=== PATIENT | female | born 1970 | race Caucasian/White ===

== ENCOUNTER → 2016-03-29 | Outpatient (CLI) | payer BC ==
[~2016-03-29] MED LIST: BCPILLS TOP; BIRTH CONTROL PATCH TD; CHOL2000 PO; CIPR-255 PO; CYAN100020 PO; IBUP-1451 PO; ONDA4TAB10 SL; OXYC1TAB3 PO; PHEN-775 PO; RIZA10TA18 PO; SERT50TA PO; TAMS0.4C38 PO
[2016-03-29 12:27] LABS: BASO % 0.4 %; BASO ABS # 0.04 K/uL (0-0.2); COMPLETE YES; EOS % 1.4 %; HEMATOCRIT 34.2 % (37-47); IG% 0.2 %; LYMPH % 23.1 %; LYMPH ABS # 2.44 K/uL (1.2-3.4); MEAN CELL VOLUME 85.3 fL (80-100); MEAN CORPUSCULAR HEMOGLOBIN 27.9 pg (25-34); MEAN CORPUSCULAR HGB CONC 32.7 g/dl (32-36); MEAN PLATELET VOLUME 9.9 fL (7.4-10.4); MONO % 5.4 %; NEUT % 69.5 %; PLATELET COUNT 400 K/uL (130-400); RED BLOOD COUNT 4.01 M/uL (4.2-5.4); WHITE BLOOD COUNT 10.54 K/uL (4.8-10.8)
== END | disposition home or self-care (01) ==
LOC: C.LABBFT 07:47
PROVIDERS: ATTEND Internal Medicine
DX: D64.9 Anemia, unspecified (principal); R79.9 Abnormal finding of blood chemistry, unspecified

== ENCOUNTER → 2016-04-04 | Outpatient (CLI) | payer BC ==
[2016-04-04 12:41] LABS: ESTIMATED AVERAGE GLUCOSE 111 mg/dl; HA1C FLAG Normal (Normal)
[2016-04-04 12:45] LABS: ALT/SGPT 20 U/L (12-78); BLOOD UREA NITROGEN 14 mg/dl (7-18); BUN/CREATININE RATIO 16.9 (10-20); CALCIUM 9.2 mg/dl (8.5-10.1); CARBON DIOXIDE 25 mmol/L (21-32); CHLORIDE 102 mmol/L (98-107); CHOLESTEROL 179 mg/dl (0-200); CREATININE 0.81 mg/dl (0.60-1.20); GLUCOSE 90 mg/dl (70-99); SODIUM 136 mmol/L (136-145); TRIGLYCERIDES 246 mg/dl (0-150); VERY LOW DENSITY LIPOPROT CALC 49 mg/dl
[2016-04-04 12:48] LABS: ALB/GLOB RATIO 0.8 (0.9-2); ALKALINE PHOSPHATASE 79 U/L (45-117); AST/SGOT 18 U/L (15-37); CHOLESTEROL/HDL RATIO 2.8; HDL CHOLESTEROL 65 mg/dl; LDL CHOLESTEROL CALCULATED 65 mg/dl
== END | disposition home or self-care (01) ==
LOC: C.LABBFT 07:49
PROVIDERS: ATTEND Internal Medicine
DX: R79.9 Abnormal finding of blood chemistry, unspecified (principal)

== ENCOUNTER 2016-06-30 17:29 | Emergency (ER) | payer BC ==
[~2016-06-30] VITALS: Ht 162.6 cm; Wt 77.0 kg
[~2016-06-30 17:29] MED LIST changes: -BIRTH CONTROL PATCH TD; -CHOL2000 PO; -CIPR-255 PO; -IBUP-1451 PO; -ONDA4TAB10 SL; -OXYC1TAB3 PO; -PHEN-775 PO; -TAMS0.4C38 PO
[2016-06-30 17:31] VITALS: TEMP 36.8; Ht 162.6 cm; Wt 77.0 kg
[2016-06-30] MEDS ORDERED: IBUPROFEN 800 MG TAB PO STA (17:51)
[2016-06-30] MEDS ORDERED: CHOL2000 PO (17:53)
--- NOTE | 2016-06-30 18:20 | EMERGENCY ROOM VISIT NOTE ---
ED Visit Note First contact with patient: 17:38 CHIEF COMPLAINT: Right Ankle pain, Right knee pain, s/p fall from standing HISTORY OF PRESENT ILLNESS: This 45-year-old female patient presents to the emergency department female [facility], approximately 1.5 hours after sustaining an injury to the right ankle and knee after falling from standing while attempting to get into the passenger seat of her vehicle. Patient states she was standing on an incline, opened the door, fell onto her bent right leg, which she landed on, then the right leg twisted sideways and she fell over onto her right side. The patient complains of pain along the outside of the ankle and outside of the right knee. The patient rates the pain as throbbing and 6/ 10. The patient is not able to bear weight on the leg. Constant pain, worse with movement, attempted weight bearing, and the dependent position. The patient is able to move their toes. No numbness or weakness of the foot, no laceration. The patient has not had a previous fracture or injury to this ankle or knee. The patient has taken nothing for the pain. The patient denies any other injury. REVIEW OF SYSTEMS: A 6 system review of systems was completed with positives and pertinent negatives listed in the HPI. ALLERGIES: None MEDICATIONS: Sertraline, vitamin D, vitamin B-12, control patch, rizatriptan, unknown muscle relaxer PMH: Panic attacks, depression, vitamin D deficiency, vitamin B12 deficiency, migraines, neck pain SOCIAL HISTORY: The patient lives locally with her . Denies tobacco or drug use. Reports occasional alcohol use. PHYSICAL EXAM: Vital Signs: Reviewed Nurse's notes, vital signs stable. GENERAL : 45-year-old female presents to [facility], no acute distress, but appears in pain, well-developed, well-nourished. MENTAL STATUS: Alert, oriented to person place and time, and cooperative. MUSCULOSKELETAL: The right ankle is swollen and tender over the lateral malleolus, but the skin is intact and there is no ligamentous instability. The right knee is not tender to palpation, however lateral knee discomfort noted when patient density. There is no fifth metatarsal tenderness. There is no tenderness over the rest of the foot. There is no calf or tibia/fibular tenderness. There is no visual deformity. The foot and toes are warm and well-perfused. Dorsalis pedis pulse 2+. Sensation to pain and light touch is intact. Capillary refill less than 2 seconds. See HPI for pertinent positives and negatives. A total of six systems were reviewed and were otherwise negative. EMERGENCY DEPARTMENT COURSE: I examined the patient. X-rays of the right knee and right ankle were reviewed by myself and read by radiology and reveal: Right Ankle Xray: FINDINGS: Alignment of the right ankle is anatomic. There is no acute fracture. Talar dome is intact. IMPRESSION: No acute fracture or dislocation of the right ankle.. Right Knee Xray: FINDINGS: Alignment of the right knee is anatomic. No fracture or joint effusion. IMPRESSION: No acute fracture or joint effusion of the right knee. Ankle gel splint was applied to the ankle under my direction and the position was satisfactory. Neurovascular status was rechecked and intact. The patient was instructed on the use of crutches. The patient was discharged home in good condition. DIAGNOSIS: Right ankle sprain, right knee and leg contusion DIFFERENTIAL DIAGNOSIS: Fracture, contusion, strain DISCHARGE INSTRUCTIONS: Ice and elevation for 2-3 days, use crutches to avoid weight bearing XXXX, wear the splint XXXX. Do not get the splint wet. Ibuprofen, 600 mg and Tylenol 1000 mg every 6 hours if needed for pain. See your doctor or an orthopedic surgeon if there is no improvement in 4 - 5 days. Current/Historical Medications Scheduled Control Pills ( Control Pills), 1 DOSE TOP WK Cholecalciferol (Vitamin D3), 2,000 INTER.UNIT PO DAILY Cyanocobalamin (Vitamin B12), 1,000 MCG PO DAILY Sertraline (Zoloft), 50 MG PO DAILY Scheduled PRN Ibuprofen Tab (Motrin), 800 MG PO Q8H PRN for Pain Rizatriptan Benzoate (Maxalt), 10 MG PO DAILY PRN Allergies Coded Allergies: No Known Allergies (Unverified , 06/30/16) Vital Signs Date Time Temp Pulse Resp B/P Pulse Ox O2 Delivery O2 Flow Rate FiO2 06/30/16 19:40 82 18 128/80 96 Room Air 06/30/16 17:31 36.8 87 20 138/85 97 Room Air Medications Administered Medications (Trade) Dose Ordered Sig/Phan Route Start Time Stop Time Status Last Admin Dose Admin Ibuprofen (Motrin Tab) 800 mg NOW STAT PO 06/30/16 17:51 06/30/16 17:56 DC 06/30/16 18:06 800 MG Departure Information Impression Primary Impression: Right ankle sprain Additional Impression: Contusion of right knee and lower leg Dispostion Home / Self-Care Condition GOOD Prescriptions Ibuprofen Tab (MOTRIN) 800 Mg Tab 800 MG PO Q8H Y for Pain, #60 TAB For Initial Treatment Prov: Aimee Cruz PA-C 06/30/16 Referrals No Doctor, Assigned (PCP) Patient Instructions My [facility] Additional Instructions You have been treated in the Emergency Department for an Ankle sprain and knee pain. You have been prescribed ibuprofen to be used for pain and inflammation control. For pain control, you can use the following [id number] medicines (if >12 yo): - Regular strength (325mg/tab) Tylenol (acetaminophen) 2 tabs every 4-6 hours as needed. Do not exceed 12 tablets in a 24 hour period. Avoid taking more than 4 grams (4000 mg) of Tylenol per day. This includes any other sources of acetaminophen you may take on a regular basis. Do not take any other NSAIDs such as ibuprofen, Motrin, Advil, Aleve, or naproxen while taking prescribed medication. Ice can be applied to the area of pain for the first 3 days to help decrease pain and inflammation. Follow-up with your primary care physician next week. Keep the ankle brace/splint in place until cleared by your PCP. Use the crutches you have been provided to keep ALL weight off of the ankle until weight bearing is tolerable. Return to the Emergency Department if your current symptoms worsen despite treatment course outlined above, or if you develop any of the following symptoms : intractable pain despite aforementioned treatment course or new onset of numbness or tingling of the foot. Problem Qualifiers
--- NOTE | 2016-06-30 18:43 | DIAGNOSTIC IMAGING REPORT ---
RIGHT KNEE 3 VIEWS CLINICAL HISTORY: Right knee pain status post fall. COMPARISON: None FINDINGS: Alignment of the right knee is anatomic. No fracture or joint effusion. IMPRESSION: No acute fracture or joint effusion of the right knee. Electronically signed by: Bowen Conway M.D. 06/30/2016 6:42 PM Dictated Date/Time: 06/30/2016 6:41 PM
--- NOTE | 2016-06-30 18:44 | DIAGNOSTIC IMAGING REPORT ---
RIGHT ANKLE MIN 3 VIEWS ROUTINE CLINICAL HISTORY: Right ankle pain status post fall. COMPARISON: None FINDINGS: Alignment of the right ankle is anatomic. There is no acute fracture. Talar dome is intact. IMPRESSION: No acute fracture or dislocation of the right ankle. Electronically signed by: Bowen Conway M.D. 06/30/2016 6:42 PM Dictated Date/Time: 06/30/2016 6:42 PM
[2016-06-30] MEDS ORDERED: IBUP-1451 PO (19:11)
[2016-06-30 19:40] VITALS: BP 128/80; PULSE 82; O2SAT 96
== END 2016-06-30 19:49 | disposition home or self-care (01) ==
LOC: C.EDB 17:30 → C.EDD 19:49
DX: S93.401A Sprain of unspecified ligament of right ankle, initial encounter (principal); S80.01XA Contusion of right knee, initial encounter; S80.11XA Contusion of right lower leg, initial encounter; W17.89XA Other fall from one level to another, initial encounter; F41.0 Panic disorder [episodic paroxysmal anxiety]; F33.41 Major depressive disorder, recurrent, in partial remission; E55.9 Vitamin D deficiency, unspecified; E53.8 Deficiency of other specified B group vitamins

== ENCOUNTER 2016-10-21 23:48 | Emergency (ER) | payer BC ==
[~2016-10-21] VITALS: Ht 162.6 cm; Wt 80.0 kg
[~2016-10-21 23:48] MED LIST changes: +CHOL2000 PO; +IBUP-1451 PO
[2016-10-21 23:56] VITALS: TEMP 36.5; Ht 162.6 cm; Wt 80.0 kg
[2016-10-22] MEDS ORDERED: MoRPHine SULFATE 4 MG/ML 1 ML CARP\\VIAL IV STA (00:07)
[2016-10-22] MEDS ORDERED: ONDANSETRON INJ 2 MG/ML 2 ML VIAL IV STA (00:07)
[2016-10-22] MEDS ORDERED: SODIUM CHLORIDE 0.9% 1000ML 1,000 ML IV STA ×2 (00:07)
[2016-10-22] MEDS ORDERED: KETOROLAC TROMETHAMINE 30 MG/ML VIAL IV STA (00:07)
[2016-10-22 00:33] LABS: BASO % 0.3 %; BASO ABS # 0.04 K/uL (0-0.2); COMPLETE YES; EOS % 1.2 %; HEMATOCRIT 37.4 % (37-47); IG% 0.3 %; LYMPH % 31.2 %; LYMPH ABS # 4.51 K/uL (1.2-3.4); MEAN CORPUSCULAR HEMOGLOBIN 27.6 pg (25-34); MEAN CORPUSCULAR HGB CONC 32.1 g/dl (32-36); MEAN PLATELET VOLUME 9.7 fL (7.4-10.4); MONO % 5.3 %; NEUT % 61.7 %; PLATELET COUNT 449 K/uL (130-400); RED BLOOD COUNT 4.35 M/uL (4.2-5.4); WHITE BLOOD COUNT 14.47 K/uL (4.8-10.8)
[2016-10-22] MEDS ORDERED: BIRTH CONTROL PATCH TD (00:35)
[2016-10-22 00:45] LABS: URINE APPEARANCE CLEAR (CLEAR); URINE BILIRUBIN NEG (NEG); URINE COLOR YELLOW; URINE EPITHELIAL CELL AUTO >30 /lpf (0-5); URINE NITRITE NEG (NEG); URINE PH 6.5 (4.5-7.5); URINE SPECIFIC GRAVITY 1.024 (1.000-1.030); UROBILINOGEN NEG (NEG); ZZUR CULT IF INDIC CLEAN CATCH NO
[2016-10-22 00:50] LABS: MANUAL MICROSCOPIC REQUIRED? NO; REVIEW REQ? YES
[2016-10-22 00:59] LABS: URINE MUCUS PRESENT (NONE PRSENT)
[2016-10-22 01:01] LABS: ALT/SGPT 18 U/L (12-78); AST/SGOT 19 U/L (15-37); BLOOD UREA NITROGEN 17 mg/dl (7-18); BUN/CREATININE RATIO 16.6 (10-20); CALCIUM 9.2 mg/dl (8.5-10.1); CARBON DIOXIDE 25 mmol/L (21-32); CHLORIDE 104 mmol/L (98-107); GLUCOSE 125 mg/dl (70-99); POTASSIUM 3.2 mmol/L (3.5-5.1); SODIUM 137 mmol/L (136-145)
[2016-10-22 01:03] LABS: ALKALINE PHOSPHATASE 93 U/L (45-117)
[2016-10-22] MEDS ORDERED: POTASSIUM CHLORIDE 10 MEQ TABCR PO STA (01:20)
--- NOTE | 2016-10-22 03:01 | EMERGENCY ROOM VISIT NOTE ---
History First contact with patient: 00:01 Chief Complaint: FLANK PAIN Stated Complaint: SEVERE PAIN IN LEFT SIDE History of Present Illness The patient is a 46 year old female who presents to the Emergency Room with complaints of severe sudden onset of left flank pain that raised her groin for the past hour described as severe, 9 out of 10. Nothing makes it better or worse. Patient denies chest pain, dyspnea, fever, chills, urinary symptoms, history kidney stones. Patient states she was nauseous and vomited from the pain. Colonoscopy in the past was negative. No diverticuli. Review of Systems See HPI for pertinent positives & negatives. A total of 10 systems reviewed and were otherwise negative. Past Medical/Surgical History Migraines, panic attacks Social History Smoking Status: Never Smoker Smokeless Tobacco Use: No Drug Use: none Marital Status: Housing Status: lives with family Current/Historical Medications Scheduled Cholecalciferol (Vitamin D3), 2,000 INTER.UNIT PO DAILY Cyanocobalamin (Vitamin B12), 1,000 MCG PO DAILY Sertraline (Zoloft), 50 MG PO DAILY [ Control Patch], 1 PATCH TD WK Scheduled PRN Rizatriptan Benzoate (Maxalt), 10 MG PO DAILY PRN for Migraine Physical Exam Vital Signs Date Time Temp Pulse Resp B/P (MAP) Pulse Ox O2 Delivery O2 Flow Rate FiO2 10/22/16 01:47 92 16 126/87 96 Room Air 10/21/16 23:56 36.5 114 18 98 Room Air Physical Exam VITALS: Vitals are noted on the nurse's note and reviewed by myself. Vital signs stable. GENERAL: Pleasant female in obvious pain, nondiaphoretic, well-developed well- nourished. SKIN: The skin was without rashes, erythema, edema, or bruising. There is no tenting of the skin. Capillary reflex less than 2 seconds. HEAD: Normocephalic atraumatic. EARS: External auditory canals clear, tympanic membranes pearly coreas without erythema or effusion bilaterally. EYES: Pupils equal round and reactive to light and accommodation. Conjunctivae without injection, sclerae without icterus. Extraocular movements intact. NOSE: Patent, turbinates without inflammation or discharge. MOUTH: Mucous membranes moist. Pharynx without erythema or exudate. Uvula midline. Airway patent. Tongue does not deviate. NECK: Supple without nuchal rigidity. No lymphadenopathy. No thyromegaly. Cervical spine is nontender. No JVD. HEART: Regular rate and rhythm without murmurs gallops or rubs. LUNGS: Clear to auscultation bilaterally without wheezes, rales or rhonchi. No dullness to percussion. No retractions or accessory muscle use. ABDOMEN: Positive bowel sounds x 4. Normal tympanic percussion. Soft, nontender, without masses or organomegaly. Franks sign negative. No guarding or rebound tenderness. Left CVA tenderness MUSCULOSKELETAL: No muscle atrophy, erythema, or edema noted. NEURO: Patient was alert and oriented to person place and time. Normal sensation to light and sharp touch. No focal neurological deficits. Medical Decision & Procedures Laboratory Results 10/22/16 00:10 Red Blood Count 4.35, Mean Corpuscular Volume 86.0, Mean Corpuscular Hemoglobin 27.6, Mean Corpuscular Hemoglobin Concent 32.1, Mean Platelet Volume 9.7, Neutrophils (%) (Auto) 61.7, Lymphocytes (%) (Auto) 31.2, Monocytes (%) (Auto) 5.3, Eosinophils (%) (Auto) 1.2, Basophils (%) (Auto) 0.3, Neutrophils # (Auto) 8.93, Lymphocytes # (Auto) 4.51, Monocytes # (Auto) 0.76, Eosinophils # (Auto) 0.18, Basophils # (Auto) 0.04 10/22/16 00:10 Test 10/22/16 00:00 10/22/16 00:10 Urine Color YELLOW Urine Appearance CLEAR (CLEAR) Urine pH 6.5 (4.5-7.5) Urine Specific [place] 1.024 (1.000-1.030) Urine Protein 1+ (NEG) Urine Glucose (UA) NEG (NEG) Urine Ketones TRACE (NEG) Urine Occult Blood 3+ (NEG) Urine Nitrite NEG (NEG) Urine Bilirubin NEG (NEG) Urine Urobilinogen NEG (NEG) Urine Leukocyte Esterase TRACE (NEG) Urine WBC (Auto) 5-10 /hpf (0-5) Urine RBC (Auto) >30 /hpf (0-4) Urine Hyaline Casts (Auto) 1-5 /lpf (0-5) Urine Epithelial Cells (Auto) >30 /lpf (0-5) Urine Bacteria (Auto) 1+ (NEG) Urine Renal Epithelial Cells /lpf (0-5) Urine Mucus PRESENT (NONE PRSENT) White Blood Count 14.47 K/uL (4.8-10.8) Red Blood Count 4.35 M/uL (4.2-5.4) Hemoglobin 12.0 g/dL (12.0-16.0) Hematocrit 37.4 % (37-47) Mean Corpuscular Volume 86.0 fL (80-100) Mean Corpuscular Hemoglobin 27.6 pg (25-34) Mean Corpuscular Hemoglobin Concent 32.1 g/dl (32-36) Platelet Count 449 K/uL (130-400) Mean Platelet Volume 9.7 fL (7.4-10.4) Neutrophils (%) (Auto) 61.7 % Lymphocytes (%) (Auto) 31.2 % Monocytes (%) (Auto) 5.3 % Eosinophils (%) (Auto) 1.2 % Basophils (%) (Auto) 0.3 % Neutrophils # (Auto) 8.93 K/uL (1.4-6.5) Lymphocytes # (Auto) 4.51 K/uL (1.2-3.4) Monocytes # (Auto) 0.76 K/uL (0.11-0.59) Eosinophils # (Auto) 0.18 K/uL (0-0.5) Basophils # (Auto) 0.04 K/uL (0-0.2) RDW Standard Deviation 44.2 fL (36.4-46.3) RDW Coefficient of Variation 14.0 % (11.5-14.5) Immature Granulocyte % (Auto) 0.3 % Immature Granulocyte # (Auto) 0.05 K/uL (0.00-0.02) Anion Gap 8.0 mmol/L (3-11) Est Creatinine Clear Calc Drug Dose 71.2 ml/min Estimated GFR () 77.7 Estimated GFR (Non- 67.0 BUN/Creatinine Ratio 16.6 (10-20) Calcium Level 9.2 mg/dl (8.5-10.1) Total Bilirubin 0.2 mg/dl (0.2-1) Direct Bilirubin < 0.1 mg/dl (0-0.2) Aspartate Amino Transf (AST/SGOT) 19 U/L (15-37) Alanine Aminotransferase (ALT/SGPT) 18 U/L (12-78) Alkaline Phosphatase 93 U/L (45-117) Total Protein 8.1 gm/dl (6.4-8.2) Albumin 3.5 gm/dl (3.4-5.0) Lipase 159 U/L (73-393) Medications Administered Medications (Trade) Dose Ordered Sig/Hpan Route Start Time Stop Time Status Last Admin Dose Admin Ketorolac Tromethamine (Toradol Inj) 30 mg NOW STAT IV 10/22/16 00:07 10/22/16 00:11 DC 10/22/16 00:20 30 MG Morphine Sulfate (MoRPHine SULFATE INJ) 4 mg NOW STAT IV 10/22/16 00:07 10/22/16 00:11 DC 10/22/16 00:21 4 MG Ondansetron HCl (Zofran Inj) 4 mg NOW STAT IV 10/22/16 00:07 10/22/16 00:11 DC 10/22/16 00:20 4 MG Sodium Chloride 1,000 ml @ 999 mls/hr Q1H1M STAT IV 10/22/16 00:07 10/22/16 01:07 DC 10/22/16 00:21 999 MLS/HR Sodium Chloride 1,000 ml @ 125 mls/hr Q8H STAT IV 10/22/16 00:07 10/22/16 08:06 10/22/16 01:45 125 MLS/HR Potassium Chloride (Klor-Con M10) 30 meq NOW STAT PO 10/22/16 01:20 10/22/16 01:21 DC 10/22/16 01:45 30 MEQ ED Course Prior records/ancillary studies reviewed. Triage Nursing notes reviewed. Additional history obtained from the family. The patient's history was concerning for left flank pain. Differential diagnosis: Etiologies such as renal colic, appendicitis, diverticulitis, mesenteric ischemia, aortic pathology, infections, inflammatory bowel disease, PUD, biliary pathology, UTI, as well as others were entertained. Physical examination findings: As above. ER treatment provided: toradol, morphine, zofran On reassessment the patient felt better. Diagnostic interpretation by me: The labs revealed leukocytosis, hypokalemia and this is her placed orally. Urinalysis revealed hematuria. There was no sign of UTI. Imaging studies: CT of the abdomen and pelvis 6 mm obstructing stone on the left and read by radiology and reviewed It appears that the patient has isolated renal colic from a left sided stone. Patient's pain was resolved and requested to leave. She was informed that this stone may not pass. She is informed she must follow-up urology in a few days or here in the ER sooner for severe pain, fevers, vomiting, worsening signs or symptoms or as needed. Patient was well-appearing. She is informed of the above findings. By the evaluation outlined above emergent etiologies such as appendicitis, diverticulitis, mesenteric ischemia, aortic pathology, infections, inflammatory bowel disease, PUD, biliary pathology, UTI, as well as others were deemed relatively unlikely. The pt informed about the findings as listed above. All questions were answered and pleased with the treatment. Return instructions were outlined and the patient was discharged in stable condition. Outpatient prescription management: Oxy IR 5mg 1-2 po Q4 hrs prn Zofran, Flomax Referral: The pt was referred to [facility] for follow up care regarding their stone. And The patient was referred back to their primary care physician for follow-up in 2 to 3 days for a recheck of the current condition. case reviewed with my Attending. Medical Decision As above Medication Reconcilliation Current Medication List: was personally reviewed by me Blood Pressure Screening Patient's blood pressure: Normal blood pressure Impression Primary Impression: Renal colic on left side Departure Information Dispostion Home / Self-Care Condition GOOD Referrals Nathan Monte M.D. (PCP) Patient Instructions My [facility] Additional Instructions DO NOT drive, drink alcohol, operate machinery, or perform dangerous activities today. You were given medications in the ER that can affect your ability to safely function or operate a vehicle. There is an incidental finding on a CT scan showing a possible fibroid on your uterus. Follow-up with family care for this. Oxycodone Immediate Release (OxyIR) 5mg: Take 1-2 pills every four hours for pain. Avoid alcohol, operating machinery or dangerous equipment, working on ladders or roofs, DRIVING, or situations where being under the influence may be dangerous. It is recommended to use an [id number]-[id number]-[id number] stool softener such as Colace, 100mg twice daily while taking this medication to avoid constipation. Zofran 4 mg: Take one every six hours as needed for nausea. Avoid alcohol, operating machinery or dangerous equipment, working on ladders or roofs, DRIVING , or situations where being under the influence may be dangerous. Ibuprofen(Motrin, Advil) may be used for fever or pain. Use 600mg every six hours as needed. Take with food. Avoid using more than 2400mg in a 24 hour period. Do not use 2400mg per day for more than three consecutive days without physician direction. Prolonged inappropriate use can lead to stomach upset or ulcers. This medication can be taken if you need to drive, work, or perform activities which may be dangerous when taking narcotic pain medication. (AND/OR) Acetaminophen(Tylenol) may be used for fever or pain. Use 1000mg every six hours as needed. Avoid using more than 3000mg in a 24 hour period. This medication can be taken if you need to drive, work, or perform activities which may be dangerous when taking narcotic pain medication. Flomax 0.4 m tablet daily until stone passes. Take this at night. This can lower your blood pressure. Strain your urine and collect all the stones or debris for the urologists. Rest and avoid strenuous activity until your stone passes and symptoms resolve. Drink plenty of fluids. Continue current medications. Return to the ER for worsening abdominal or back pain, vomiting, fevers, passing out, or as needed. Follow up with urology in 2-3 days, call for an appointment.
[2016-10-22] MEDS ORDERED: OXYC1TAB3 PO (03:04)
[2016-10-22] MEDS ORDERED: ONDA4TAB10 SL (03:04)
[2016-10-22] MEDS ORDERED: TAMS0.4C38 PO (03:04)
[2016-10-22] MEDS ORDERED: TAMSULOSIN HCL 0.4 MG CAP PO ONE (03:15)
[2016-10-22] MEDS ORDERED: OXYCODONE IR HOME PACK PO ONE (03:15)
[2016-10-22] MEDS ORDERED: ONDANSETRON HOME PACK 4MG OD TAB PO ONE (03:15)
[2016-10-22 03:22] VITALS: BP 122/81; PULSE 91; O2SAT 97
--- NOTE | 2016-10-22 06:33 | DIAGNOSTIC IMAGING REPORT ---
ABD/PELVIS WITHOUT FOR STONE CLINICAL HISTORY: 46 years-old Female presenting with severe left flank pain. TECHNIQUE: Multidetector CT of the abdomen and pelvis was performed without the use of intravenous contrast. IV contrast: None. A dose lowering technique was used consistent with the principles of ALARA (as low as reasonably achievable). COMPARISON: None. CT DOSE (mGy.cm): The estimated cumulative dose is 1029.57 mGy.cm. FINDINGS: [employer] topogram: Unremarkable. Lung bases: Minimal dependent opacities likely atelectasis. Normal heart size. No pericardial or pleural effusion. The intraventricular blood pool is slightly less dense and adjacent myocardium suggesting anemia. Liver: Normal morphology. Normal density. Biliary: No gross biliary ductal dilatation allowing for noncontrast technique. Normal gallbladder. Pancreas: Normal noncontrast appearance. Spleen: Normal noncontrast appearance. Splenule noted. Adrenal glands: Normal. Kidneys and ureters: Nonobstructing 2 mm calculus in the interpolar region of the right kidney. No right hydronephrosis. Right ureter normal obstructing 6 mm calculus in the proximal left ureter with resultant mild left hydronephrosis. Nonobstructing punctate calculus also noted at the lower pole the left kidney. The left ureter distal to the calculus is decompressed. Bladder: Incompletely evaluated secondary to underdistention. Pelvic organs: Lobular mass arising from the posterior wall of the uterus, indeterminate but likely fibroid. Ovaries not well visualized. Bowel: Normal appendix. No bowel wall thickening allowing for noncontrast technique. Small hiatal hernia. No bowel obstruction. Peritoneal cavity: Minimal fat infiltration along the superior mesenteric artery and root of the small bowel mesentery, nonspecific. No free intraperitoneal gas or fluid. No free retroperitoneal fluid. Vasculature: Normal noncontrast appearance. Lymph nodes: Numerous enlarged lymph nodes in the small bowel mesentery, which are subcentimeter in the short axis. No pathologically enlarged lymph nodes in the abdomen or pelvis per CT size criteria. Abdominal wall: Normal. Musculoskeletal: Normal. IMPRESSION: 1. Obstructing 6 mm calculus in the proximal left ureter with resultant mild left hydronephrosis. Additional bilateral nonobstructing renal calculi. 2. Lobular mass arising from the posterior wall the uterus, indeterminate but likely fibroid. 3. Numerous prominent mesenteric lymph nodes, possibly reactive. No convincing evidence of bowel pathology allowing for noncontrast technique. Electronically signed by: Dong Aggarwal M.D. 10/22/2016 6:31 AM Dictated Date/Time: 10/22/2016 6:24 AM
== END 2016-10-22 03:23 | disposition home or self-care (01) ==
LOC: C.EDB 23:49 → C.EDA 10-22 03:23
DX: N23 Unspecified renal colic (principal)

== ENCOUNTER → 2016-10-24 | Outpatient (CLI) | payer BC ==
[~2016-10-24] MED LIST changes: -BCPILLS TOP; +BIRTH CONTROL PATCH TD; +CIPR-255 PO; -IBUP-1451 PO; +ONDA4TAB10 SL; +OXYC1TAB3 PO; +PHEN-775 PO; +TAMS0.4C38 PO
== END | disposition home or self-care (01) ==
LOC: C.LABSPEC 17:07
PROVIDERS: ATTEND Nurse Practitioner Adult Health
DX: N20.1 Calculus of ureter (principal)

== ENCOUNTER 2016-10-25 16:57 | Inpatient (IN) | payer BC ==
[~2016-10-25] VITALS: Ht 162.6 cm; Wt 76.8 kg
[~2016-10-25 16:57] MED LIST changes: -CIPR-255 PO; -PHEN-775 PO
[2016-10-25] MEDS ORDERED: SODIUM CHLORIDE 0.9% 1000ML 500 ML IV STA (17:09)
[2016-10-25] MEDS ORDERED: ONDANSETRON INJ 2 MG/ML 2 ML VIAL IV STA (17:09)
[2016-10-25] MEDS ORDERED: KETOROLAC TROMETHAMINE 30 MG/ML VIAL IV STA (17:09)
[2016-10-25] MEDS ORDERED: SODIUM CHLORIDE 0.9% 1000ML 1,000 ML IV STA (17:09)
[2016-10-25 17:19] LABS: HEMATOCRIT 35.5 % (37-47); MEAN CELL VOLUME 84.9 fL (80-100); MEAN CORPUSCULAR HEMOGLOBIN 28.2 pg (25-34); MEAN CORPUSCULAR HGB CONC 33.2 g/dl (32-36); MEAN PLATELET VOLUME 9.5 fL (7.4-10.4); PLATELET COUNT 409 K/uL (130-400); RED BLOOD COUNT 4.18 M/uL (4.2-5.4); WHITE BLOOD COUNT 11.24 K/uL (4.8-10.8)
[2016-10-25] MEDS: MoRPHine SULFATE 4 MG/ML 1 ML CARP\\VIAL IV PRN ×4 (17:19→22:32)
--- NOTE | 2016-10-25 17:19 | EMERGENCY ROOM VISIT NOTE ---
History Report prepared by Lj: Brayden Hines Under the Supervision of: Dr. Jonathan Rosario M.D. First contact with patient: 17:07 Chief Complaint: KIDNEY STONE Stated Complaint: KIDNEY STONE History of Present Illness The patient is a 46 year old female who presents to the Emergency Room with complaints of worsening left flank pain that started 8 days ago. She says that the pain started off as mild and she just thought it was gas, but 3 days ago, the pain worsened and she came here and was diagnosed with a 6 mm kidney stone. This is the patient's first stone. The patient states that over time, the pain has moved further down her side. She adds that she has had an increased urgency to urinate recently. The patient says that she took 2 oxycodone 45 minutes ago with no relief, and she rates her pain as a 10 out of 10 in severity, it is the worst pain she has ever had. She notes that she has been nauseated, and vomited 3 days ago, and vomited once on the car ride here today. She adds that she saw Bree POOLE) of urology yesterday. Bree Harris noted that the patient had a "50/50" chance of passing the stone, and the patient has a scheduled appointment again over a week from now for potential lithotripsy. Source of History: patient Onset: 8 days ago Position: other (left flank) Symptom Intensity: 10/10 in severity, worst pain ever Quality: other (pain ) Timing: worsening Associated Symptoms: + nausea, + vomiting, + urinary symptoms (increased urge to urinate) Note: No other associated symptoms noted. Review of Systems See HPI for pertinent positives & negatives. A total of 10 systems reviewed and were otherwise negative. Past Medical & Surgical Medical Problems: (1) Depression (2) Left ureteral stone Family History Cancer Diabetes mellitus FHx: hypothyroidism Social History Smoking Status: Never Smoker Drug Use: none Marital Status: Housing Status: lives with family Occupation Status: employed Current/Historical Medications Scheduled Cholecalciferol (Vitamin D3), 2,000 INTER.UNIT PO DAILY Cyanocobalamin (Vitamin B12), 1,000 MCG PO DAILY Ondasetron Odt (Zofran Odt), 4 MG SL Q6H Sertraline (Zoloft), 50 MG PO DAILY Tamsulosin Hcl (Flomax), 0.4 MG PO DAILY [ Control Patch], 1 PATCH TD WK Scheduled PRN Oxycodone Immediate Rel Tab (Roxicodone Ir), 1-2 TAB PO Q4H PRN for Severe Pain Rizatriptan Benzoate (Maxalt), 10 MG PO DAILY PRN for Migraine Allergies Coded Allergies: No Known Allergies (Unverified , 10/25/16) Physical Exam Vital Signs Date Time Temp Pulse Resp B/P (MAP) Pulse Ox O2 Delivery O2 Flow Rate FiO2 10/25/16 18:57 Room Air 10/25/16 16:58 36.4 106 18 159/85 99 Room Air Physical Exam GENERAL: Patient is in mild distress secondary to pain. HEENT: No acute trauma, normocephalic atraumatic, mucous membranes moist, no nasal congestion, no scleral icterus. NECK: No stridor, no adenopathy, no meningismus, trachea is midline. LUNGS: Clear to auscultation bilaterally, no wheeze, no rhonchi, breath sounds equal. HEART: Without murmurs gallops or rubs, regular rate and rhythm. ABDOMEN: Tender in left lower quadrant. Soft, bowel sounds positive, no hernias , no peritonitis. BACK: Left flank discomfort to percussion. EXTREMITIES: No cyanosis or edema, full range of motion of all the joints without pain or difficulty, no signs for acute trauma. NEUROLOGIC: Oriented x 3, no acute motor or sensory deficits, no focal weakness. SKIN: No rash, no jaundice, no diaphoresis. Medical Decision & Procedures Laboratory Results 10/25/16 17:10 10/25/16 17:10 Test 10/25/16 17:10 Red Blood Count 4.18 M/uL (4.2-5.4) Mean Corpuscular Volume 84.9 fL (80-100) Mean Corpuscular Hemoglobin 28.2 pg (25-34) Mean Corpuscular Hemoglobin Concent 33.2 g/dl (32-36) RDW Standard Deviation 43.7 fL (36.4-46.3) RDW Coefficient of Variation 14.1 % (11.5-14.5) Mean Platelet Volume 9.5 fL (7.4-10.4) Anion Gap 10.0 mmol/L (3-11) Est Creatinine Clear Calc Drug Dose 80.2 ml/min Estimated GFR () 91.9 Estimated GFR (Non- 79.3 BUN/Creatinine Ratio 12.2 (10-20) Calcium Level 10.1 mg/dl (8.5-10.1) Laboratory results reviewed by me. Medications Administered Medications (Trade) Dose Ordered Sig/Phan Route Start Time Stop Time Status Last Admin Dose Admin Sodium Chloride 500 ml @ 999 mls/hr Q31M STAT IV 10/25/16 17:09 10/25/16 17:39 DC 10/25/16 17:18 999 MLS/HR Ondansetron HCl (Zofran Inj) 4 mg NOW STAT IV 10/25/16 17:09 10/25/16 17:12 DC 10/25/16 17:18 4 MG Sodium Chloride 1,000 ml @ 200 mls/hr Q5H STAT IV 10/25/16 17:09 10/25/16 22:08 10/25/16 17:09 200 MLS/HR Morphine Sulfate (MoRPHine SULFATE INJ) 4 mg Q15M PRN IV 10/25/16 17:15 11/08/16 17:14 10/25/16 17:41 4 MG Ketorolac Tromethamine (Toradol Inj) 30 mg NOW STAT IV 10/25/16 17:09 10/25/16 17:12 DC 10/25/16 17:19 30 MG ED Course 1707: The patient was evaluated in room B2. A complete history and physical exam was performed. 1709: Ordered Toradol Inj 30 mg IV, NSS 1000 ml @ 200 mls/hr IV, Zofran Inj 4 mg IV, NSS 500 ml @ 999 mls/hr IV. 1715: Ordered Morphine Sulfate Inj 4 mg IV PRN. 1757: I discussed the patient with Dr. Avalos - [facility] stock digger - he would like us to call urology. I talked to Dr. Parsons of urology, and he talked to Dr. Avalos, and they decided that Dr. Avalos would evaluate the patient for further treatment, with Dr. Parsons as a consult. 1802: Upon reexamination the patient is resting. I discussed results and treatment plan with the patient. She verbalizes agreement and understanding. The patient will be evaluated for further management. Medical Decision Differential diagnosis includes but is not limited to failed outpatient treatment, renal colic, UTI, renal failure, dehydration, electrolyte imbalance, hydronephrosis. There is a mild leukocytosis, likely from all her pain. No worrisome anemia. No significant electrolyte abnormality or kidney failure. Urinalysis result is pending. KUB shows that the left ureteral stone and has migrated distally towards the bladder. The patient was in quite of bit of discomfort. She was given IV Toradol, IV morphine and IV Zofran, she received IV saline, she feels improved. The patient has failed outpatient treatment for a left ureteral stone. She is vomiting. She has had persistent pain despite oxycodone. The stone she is trying to pass is quite large. I discussed things with the on-call urologist as well as the on-call hospitalist. Case management has been involved. Admission/observation is warranted. The patient is aware of all her findings. Medication Reconcilliation Current Medication List: was personally reviewed by me Blood Pressure Screening Patient's blood pressure: Elevated blood pressure Blood pressure disposition: Elevated BP felt to be situational Consults Time Called: 1754 Consulting Physician: Dr. Bailey ALVAREZ stock digger Returned Call: 1756 I discussed the patient with Dr. Bailey ALVAREZ stock digger - he would like us to call urology. I talked to Dr. Parsons of urology, and he talked to Dr. Avalos, and they decided that Dr. Avalos would evaluate the patient for further treatment, with Dr. Parsons as a consult. Impression Primary Impression: Renal colic Additional Impressions: Failure of outpatient treatment Vomiting Scribe Attestation The scribe's documentation has been prepared under my direction and personally reviewed by me in its entirety. I confirm that the note above accurately reflects all work, treatment, procedures, and medical decision making performed by me. Departure Information Dispostion Being Evaluated By Hospitalist Referrals Nathan Monte M.D. (PCP) Patient Instructions My [facility] Problem Qualifiers Additional Impressions: Vomiting Vomiting type: unspecified Vomiting Intractability: non-intractable Nausea presence: unspecified Qualified Codes: R11.10 - Vomiting, unspecified
[2016-10-25 17:37] LABS: BUN/CREATININE RATIO 12.2 (10-20); CALCIUM 10.1 mg/dl (8.5-10.1); CREATININE 0.87 mg/dl (0.60-1.20); POTASSIUM 3.3 mmol/L (3.5-5.1)
--- NOTE | 2016-10-25 18:01 | DIAGNOSTIC IMAGING REPORT ---
KUB CLINICAL HISTORY: EVALUATE FOR OBSTRUCTION/STONE. COMPARISON STUDY: CT of the abdomen and pelvis October 22, 2016. FINDINGS: Note is made of distal migration of the 7 mm x 5 mm ureteral calculus shown on CT of October 22, 2016. This calculus is now within the distal left ureter. There is a 3 mm right renal calculus. Right pelvic calcifications reflect phleboliths. IMPRESSION: 1. Distal migration of the 7 mm x 5 mm left ureteral calculus which is now within the distal left ureter. 2. 3 mm right renal calculus. Electronically signed by: Bowen Conway M.D. 10/25/2016 6:00 PM Dictated Date/Time: 10/25/2016 5:56 PM
[2016-10-25] MEDS ORDERED: RIZATRIPTAN BENZOATE 10 MG TAB PO PRN (18:45)
[2016-10-25] MEDS ORDERED: ALUMINUM/MAGNESIUM/SIMETH (MAALOX MAX) 30 ML UDC PO PRN (18:45)
[2016-10-25] MEDS ORDERED: POLYETHYLENE (MIRALAX) 17 GM PACK PO PRN (18:45)
[2016-10-25] MEDS ORDERED: ACETAMINOPHEN 325 MG TAB PO PRN (18:45)
[2016-10-25] MEDS ORDERED: ONDANSETRON INJ 2 MG/ML 2 ML VIAL IV PRN (18:45)
[2016-10-25] MEDS ORDERED: MAGNESIUM HYDROXIDE SUSP 30 ML UDC PO PRN (18:45)
[2016-10-25 18:57] VITALS: Ht 162.6 cm; Wt 76.8 kg
--- NOTE | 2016-10-25 19:01 | History and Physical ---
History & Physical Date & Time of Service: Oct 25, 2016 at 18:45 Chief Complaint: Kidney Stone Primary Care Physician: Natahn Monte M.D. History of Present Illness Source: patient, spouse, clinic records, hospital records This is a 46 y/o female with a history of anxiety and depression, migraines, iron deficiency anemia, and GERD who presented to the ED on 10/25 with worsening left flank pain. The patient had actually presented to the ED on 10/22 with left flank pain. Abdomen/pelvis CT revealed an obstructing 6 mm left proximal ureteral stone with mild hydronephrosis. The patient was discharged with oxycodone, Zofran, and Flomax. She followed up with urology yesterday and decided to try a trial of passage with MET for 1 week, and if the stone was still present would have lithotripsy. Today, however, her flank pain became much more severe, up to a 10/10 sharp pain in the left flank, lower back and left groin. The patient also notes associated nausea and vomiting, although this has resolved now that the pain is controlled. The patient also complains of increased urinary urgency. Currently the patient rates her pain a 1 or 2 out of 10, and now describes it as an aching rather than sharp pain. The patient denies fevers, chills, sweats, chest pain, palpitations, claudication, cough, wheezing, shortness of breath, dysuria, hematuria, urinary retention, paralysis, weakness, numbness and tingling. Past Medical/Surgical History Medical Problems: (1) Depression Status: Chronic Family History Cancer (prostate, breast, Hodgkin lymphoma) Diabetes mellitus FHx: hypothyroidism Social History Smoking Status: Never Smoker Smokeless Tobacco Use: No Alcohol Use: socially Drug Use: none Marital Status: Housing status: lives with significant other Occupational Status: employed Immunizations History of Influenza Vaccine: No History of Tetanus Vaccine?: Yes History of Pneumococcal: No History of Hepatitis B Vaccine: No Multi-Drug Resistant Organisms History of MDRO: No Allergies Coded Allergies: No Known Allergies (Unverified , 10/25/16) Home Medications Scheduled Cholecalciferol (Vitamin D3), 2,000 INTER.UNIT PO DAILY Cyanocobalamin (Vitamin B12), 1,000 MCG PO DAILY Ondasetron Odt (Zofran Odt), 4 MG SL Q6H Sertraline (Zoloft), 50 MG PO DAILY Tamsulosin Hcl (Flomax), 0.4 MG PO DAILY [ Control Patch], 1 PATCH TD WK Scheduled PRN Oxycodone Immediate Rel Tab (Roxicodone Ir), 1-2 TAB PO Q4H PRN for Severe Pain Rizatriptan Benzoate (Maxalt), 10 MG PO DAILY PRN for Migraine Review of Systems Constitutional: No fever, No chills, No sweats Eyes: No worsening of vision, No eye pain, No diplopia ENT: No hearing loss, No sore throat, No trouble swallowing Respiratory: No cough, No wheezing, No shortness of breath Cardiovascular: No chest pain, No claudication, No palpitations Abdomen: + pain (left flank, back and groin), + nausea, + vomiting Musculoskeletal: No joint pain, No muscle pain, No calf pain Genitourinary - Female: + urinary urgency, No dysuria, No hematuria Neurologic: No paralysis, No weakness, No numbness/tingling Integumentary: No rash, No itch, No color change Physical Exam Vital Signs Date Time Temp Pulse Resp B/P (MAP) Pulse Ox O2 Delivery O2 Flow Rate FiO2 10/25/16 16:58 36.4 106 18 159/85 99 Room Air General appearance: Well-developed, well-nourished, no apparent distress Head: Normocephalic, atraumatic Eyes: Normal inspection, PERRL, EOMI ENT: Normal ENT inspection, hearing grossly normal, pharynx normal Neck: Supple, no JVD, trachea midline Respiratory/Chest: Lungs clear to auscultation, normal breath sounds, no respiratory distress Cardiovascular: Regular rate & rhythm, no gallop, no murmur Abdomen/GI: +Left groin and flank areas TTP. Normal bowel sounds, soft Extremities/Musculoskeletal: Normal inspection, no calf tenderness, no pedal edema Neurological/Psych: Alert, normal mood/affect, oriented x 3 Skin: Normal color, warm/dry, no rash Diagnostics Laboratory Results Results Past 24 Hours Test 10/25/16 17:10 Range/Units White Blood Count 11.24 4.8-10.8 K/uL Red Blood Count 4.18 4.2-5.4 M/uL Hemoglobin 11.8 12.0-16.0 g/dL Hematocrit 35.5 37-47 % Mean Corpuscular Volume 84.9 80-100 fL Mean Corpuscular Hemoglobin 28.2 25-34 pg Mean Corpuscular Hemoglobin Concent 33.2 32-36 g/dl RDW Standard Deviation 43.7 36.4-46.3 fL RDW Coefficient of Variation 14.1 11.5-14.5 % Platelet Count 409 130-400 K/uL Mean Platelet Volume 9.5 7.4-10.4 fL Sodium Level 140 136-145 mmol/L Potassium Level 3.3 3.5-5.1 mmol/L Chloride Level 106 98-107 mmol/L Carbon Dioxide Level 24 21-32 mmol/L Anion Gap 10.0 3-11 mmol/L Blood Urea Nitrogen 11 7-18 mg/dl Creatinine 0.87 0.60-1.20 mg/dl Est Creatinine Clear Calc Drug Dose 80.2 ml/min Estimated GFR () 91.9 Estimated GFR (Non- 79.3 BUN/Creatinine Ratio 12.2 10-20 Random Glucose 104 70-99 mg/dl Calcium Level 10.1 8.5-10.1 mg/dl Diagnostic Radiology Reviewed the following studies and agree with interpretation as follows: Patient Name: EVER CONRAD Unit Number: [id number] Dictated: 10/25/161755 Transcribed: 10/25/161755 Printed Date/Time: [~ rep prt dt]/[~ rep prt tm] [~ rep ct labl] - [~ rep ct ivnm] [facility] [place] [address] Dictated: 10/25/161755 Transcribed: 10/25/161755 Printed Date/Time: [~ rep prt dt]/[~ rep prt tm] [~ rep ct labl] - [~ rep ct ivnm] Patient: EVER CONRAD Address1: [address] Rec: [id number] Address2: Acct ID: [id number] [facility] Zip: [place] [address] Date: 1970 Sex: F Room/Bed: Ref Phy: Nathan Monte M.D. SC: MIGUE Att Phy: Report #: [id number] Alyce Phy: Nathan Monte M.D. Test: KUB Admit Phy: Qa Specialist: AMADEORBR Interpreting Phy: Bowen Conway MD Diagnosis: KIDNEY STONE Ordering Phy: Jonathan Rosario M.D. Service Date: 10/25/16 Admit Date: 10/25/16 MNE: [id number] CONF: DICTATED BY: Bowen Conway MD]] CC: Jonathan Rosario M.D. Shannon, Dennis, M.D. Endcc: [~ rep ct add3]] KUB CLINICAL HISTORY: EVALUATE FOR OBSTRUCTION/STONE. COMPARISON STUDY: CT of the abdomen and pelvis October 22, 2016. FINDINGS: Note is made of distal migration of the 7 mm x 5 mm ureteral calculus shown on CT of October 22, 2016. This calculus is now within the distal left ureter. There is a 3 mm right renal calculus. Right pelvic calcifications reflect phleboliths. IMPRESSION: 1. Distal migration of the 7 mm x 5 mm left ureteral calculus which is now within the distal left ureter. 2. 3 mm right renal calculus. Electronically signed by: Bowen Conway M.D. 10/25/2016 6:00 PM Dictated Date/Time: 10/25/2016 5:56 PM The status of this report is Signed. Draft = Not yet reviewed or approved by Radiologist. Signed = Reviewed and approved by Radiologist. <AttendingPhy></AttendingPhy> <FamilyPhy>Nathan Monte M.D.</FamilyPhy> < PrimaryPhy>Nathan Monte M.D.</PrimaryPhy> <UnitNumber>[id number]</UnitNumber > <VisitNumber>[id number]</VisitNumber> <PatientName>EVER CONRAD</ PatientName> <DateOfBirth>1970</DateOfBirth> <Location>[facility]ED[facility]</Location> < ServiceDate>10/25/16</ServiceDate> <MNE>ESINDI</MNE> <OrderingPhy>Jonathan Rosario M.D.</OrderingPhy> <OrderingPhyMNE>f rep ord dr napier</OrderingPhyMNE> < DictatingPhyMNE>f rep dict dr napier</DictatingPhyMNE> <CCListMNE>f rep ct karthikeyan</ CCListMNE> <AdmittingPhyMNE>f pt admit dr napier</AdmittingPhyMNE> <AttendingPhyMNE >f pt attend dr napier</AttendingPhyMNE> <ConsultingPhyMNE>f pt consult dr napier</ConsultingPhyMNE> <FamilyPhyMNE>f pt fam dr napier</FamilyPhyMNE> <OtherPhyMNE>f pt other dr napier</OtherPhyMNE> < PrimaryPhyMNE>f pt prim care dr napier</PrimaryPhyMNE> <ReferringPhyMNE>f pt referring dr napier</ReferringPhyMNE> Impression Assessment and Plan 46 y/o female with a history of anxiety and depression, migraines, iron deficiency anemia, and GERD who presented to the ED on 10/25 with worsening left flank pain. Pt arrived afebrile and slightly tachycardic with HR of 106. Vital signs otherwise stable. KUB shows 7 mm stone that is now in the distal left ureter. WBC 11.24. Potassium 3.3. Labs otherwise unremarkable. Left ureteral stone w/mild hydronephrosis per CT 10/22 -Admit to med/surg -NSS + 20 mEq KCl at 200 cc/hr -Morphine 4 mg IV q2h prn pain -Zofran 4 mg IV q6h prn nausea -Continue Flomax 0.4 mg PO hs -Consult urology, appreciate recs -NPO after midnight for possible stent tomorrow -Leukocytosis improved. WBC 11.24 on admission, down from 14.47 on 10/22 -Urine culture from 10/24 negative -Strain all urine, send stone for analysis if passes Hypokalemia -Potassium 3.3 on admission -IVF w/KCl as above, continue to monitor Anxiety and depression -Continue sertraline 50 mg PO qd H/o iron deficiency anemia -Hgb stable at 11.8 on admission Migraines -Rizatriptan prn DVT prophylaxis -Hold chemical prophylaxis due to possible procedure -TOÑITO Real Code Status -Level I, FULL RESUSCITATION STATUS Level of Care Med/Surg Resuscitation Status FULL RESUSCITATION VTE Prophylaxis VTE Risk Assessment Done? Y/N: Yes Risk Level: Moderate Given or contraindicated: NickD. Stockings, SCD's
[2016-10-25 20:05] LABS: URINE APPEARANCE CLOUDY (CLEAR); URINE BILIRUBIN NEG (NEG); URINE COLOR YELLOW; URINE EPITHELIAL CELL AUTO >30 /lpf (0-5); URINE NITRITE NEG (NEG); URINE PH 7.5 (4.5-7.5); URINE SPECIFIC GRAVITY 1.023 (1.000-1.030); UROBILINOGEN NEG (NEG); ZZUR CULT IF INDIC CLEAN CATCH YES
[2016-10-25 20:22] LABS: MANUAL MICROSCOPIC REQUIRED? NO; REVIEW REQ? YES; SULFASALICYLIC ACID POS (NEG)
[2016-10-25] MEDS: NSS + 20MEQ KCL 1000ML 1,000 ML IV SCH (20:43)
[2016-10-25] MEDS ORDERED: INFLUENZA VIRUS QUAD VACCINE 0.5 ML SYR IM. ONE (20:45)
[2016-10-25] MEDS ORDERED: INFLUENZA ADMINISTRATION CHARGE ONE (20:45)
[2016-10-25] MEDS ORDERED: SERTRALINE HCL 50 MG TAB PO SCH (21:00)
[2016-10-25] MEDS ORDERED: TAMSULOSIN HCL 0.4 MG CAP PO SCH (21:00)
[2016-10-25 22:51] VITALS: BP 150/86; PULSE 100; TEMP 36.8; O2SAT 94
[2016-10-26] MEDS: NSS + 20MEQ KCL 1000ML 1,000 ML IV SCH ×3 (01:46→12:33)
[2016-10-26] MEDS: MoRPHine SULFATE 4 MG/ML 1 ML CARP\\VIAL IV PRN (01:49)
[2016-10-26 07:35] VITALS: BP 130/72; PULSE 74; TEMP 36.7; O2SAT 92
[2016-10-26 07:38] LABS: HEMATOCRIT 32.7 % (37-47); MEAN CELL VOLUME 88.6 fL (80-100); MEAN CORPUSCULAR HEMOGLOBIN 29.3 pg (25-34); MEAN PLATELET VOLUME 9.6 fL (7.4-10.4); PLATELET COUNT 323 K/uL (130-400); RED BLOOD COUNT 3.69 M/uL (4.2-5.4); WHITE BLOOD COUNT 14.94 K/uL (4.8-10.8)
[2016-10-26] MEDS ORDERED: CIPROFLOXACIN 400MG / 200ML D5W IV ONE (08:00)
--- NOTE | 2016-10-26 08:14 | Urology Consultation ---
History General Date of Service: Oct 26, 2016. Chief Complaint: left flank pain Primary Care Physician: Nathan Monte M.D. Pt seen a urologist before?: Yes (Bree YOUSIF) If yes, why?: left ureteral stone History of Present Illness 46 yo female presents to [facility] last evening for worsening left flank pain accompanied by n/v. She saw me 2 days ago as an outpatient for the same issue. Noted to have a proximal left ureteral stone at that time per CT from ED visit on 10-22. She has no previous hx of stones. Preferred to attempt trial of passage with MET with possible ESWL next week if unable to pass stone. Pt then developed worsening left flank pain with n/v yesterday. KUB on admission yesterday shows the stone has migrated distally. ~7mm. She is afebrile. White count of 14.94 trending up. Cr is normal. Pain has improved this morning. Denies dysuria or hematuria. Imaging Imaging: KUB Laboratory Last 24 Hours Test 10/25/16 17:10 10/25/16 19:51 10/26/16 06:57 White Blood Count 11.24 K/uL 14.94 K/uL Red Blood Count 4.18 M/uL 3.69 M/uL Hemoglobin 11.8 g/dL 10.8 g/dL Hematocrit 35.5 % 32.7 % Mean Corpuscular Volume 84.9 fL 88.6 fL Mean Corpuscular Hemoglobin 28.2 pg 29.3 pg Mean Corpuscular Hemoglobin Concent 33.2 g/dl 33.0 g/dl RDW Standard Deviation 43.7 fL 47.2 fL RDW Coefficient of Variation 14.1 % 14.6 % Platelet Count 409 K/uL 323 K/uL Mean Platelet Volume 9.5 fL 9.6 fL Sodium Level 140 mmol/L Potassium Level 3.3 mmol/L Chloride Level 106 mmol/L Carbon Dioxide Level 24 mmol/L Anion Gap 10.0 mmol/L Blood Urea Nitrogen 11 mg/dl Creatinine 0.87 mg/dl Est Creatinine Clear Calc Drug Dose 80.2 ml/min Estimated GFR () 91.9 Estimated GFR (Non- 79.3 BUN/Creatinine Ratio 12.2 Random Glucose 104 mg/dl Calcium Level 10.1 mg/dl Urine Color YELLOW Urine Appearance CLOUDY Urine pH 7.5 Urine Specific [place] 1.023 Urine Protein TRACE Urine Glucose (UA) NEG Urine Ketones TRACE Urine Occult Blood 1+ Urine Nitrite NEG Urine Bilirubin NEG Urine Urobilinogen NEG Urine Leukocyte Esterase LARGE Urine WBC (Auto) >30 /hpf Urine RBC (Auto) 5-10 /hpf Urine Hyaline Casts (Auto) 0 /lpf Urine Epithelial Cells (Auto) >30 /lpf Urine Bacteria (Auto) 2+ Urine Pathogenic Casts /lpf Problem List Medical Problems: (1) Contusion of right knee and lower leg Status: Acute (2) Failure of outpatient treatment Status: Acute (3) Renal colic Status: Acute (4) Renal colic on left side Status: Acute (5) Right ankle sprain Status: Acute (6) Vomiting Status: Acute Past History anxiety, depression, GERD, kidney stones, migraines, other (iron deficiency anemia) Past Surgical History: other (oral tooth extraction) Family History Cancer (prostate, breast, Hodgkin lymphoma) Diabetes mellitus FHx: hypothyroidism Social History Hx Tobacco Use In Past Year?: No Smoking: non-smoker Alcohol: socially Marital status: Housing status: lives with significant other Occupation status: employed Immunizations History of Influenza Vaccine: No History of Tetanus Vaccine?: Yes History of Pneumococcal: No History of Hepatitis B Vaccine: No History of MDRO No Allergies Coded Allergies: No Known Allergies (Unverified , 10/25/16) Medications Home Medications: Home Meds and Scripts Medications Dose Route/Sig Max Daily Dose Days Date Category Dose Instructions Flomax (Tamsulosin Hcl) 0.4 Mg Cap 0.4 Mg PO DAILY 14 10/22/16 Rx Roxicodone Ir (Oxycodone HCl) 5 Mg Tab 1-2 Tab PO Q4H PRN 10/22/16 Rx initial course Zofran Odt (Ondansetron HCl) 4 Mg Tab 4 Mg SL Q6H 10/22/16 Rx [ Control Patch] 1 Patch TD WK 10/22/16 Reported EVERY SUNDAY Vitamin D3 (Cholecalciferol) 2,000 Unit Cap 2,000 Inter.unit PO DAILY 06/30/16 Reported Vitamin B12 (Cyanocobalamin) 1,000 Mcg Tab 1,000 Mcg PO DAILY 11/18/12 Reported Maxalt (Rizatriptan Benzoate) 10 Mg Tab 10 Mg PO DAILY PRN 08/21/12 Reported Zoloft (Sertraline HCl) 50 Mg Tab 50 Mg PO DAILY 08/21/12 Reported Inpatient Medications: Current Inpatient Medications Medications (Trade) Dose Ordered Sig/Phan Route Start Time Stop Time Status Last Admin Dose Admin Acetaminophen (Tylenol Tab) 650 mg Q4H PRN PO 10/25/16 18:45 11/24/16 18:44 Al Hydrox/Mg Hydrox/Simethicone (Maalox Max Susp) 15 ml Q4H PRN PO 10/25/16 18:45 11/24/16 18:44 Magnesium Hydroxide (Milk Of Magnesia Susp) 30 ml Q6H PRN PO 10/25/16 18:45 11/24/16 18:44 Polyethylene (Miralax Powder Packet) 17 gm DAILY PRN PO 10/25/16 18:45 11/24/16 18:44 Ondansetron HCl (Zofran Inj) 4 mg Q6H PRN IV 10/25/16 18:45 11/24/16 18:44 Rizatriptan Benzoate (Maxalt Tab) 10 mg DAILY PRN PO 10/25/16 18:45 11/24/16 18:44 Sertraline HCl (Zoloft Tab) 50 mg HS PO 10/25/16 21:00 11/24/16 20:59 10/25/16 21:00 50 MG Tamsulosin HCl (Flomax Cap) 0.4 mg HS PO 10/25/16 21:00 11/24/16 20:59 10/25/16 21:00 0.4 MG Potassium Chloride/Sodium Chloride 1,000 ml @ 200 mls/hr Q5H IV 10/25/16 20:30 11/24/16 20:29 10/26/16 06:15 200 MLS/HR Morphine Sulfate (MoRPHine SULFATE INJ) 4 mg Q2H PRN IV 10/25/16 18:45 11/08/16 18:44 10/26/16 01:49 4 MG Ciprofloxacin/ Dextrose (Cipro / D5W) 400 mg PREOP ONCE IV 10/26/16 08:00 10/26/16 08:01 UNV Review of Systems Review of Systems Constitutional: No fever, No chills Eyes: No double vision Neurological: No dizzy Endocrine: No excessive thirst Gastrointestinal: No abdominal pain, No nausea, No vomiting Cardiovascular: No chest pain Respiratory: No shortness of breath Skin: No rash Musculoskeletal: No back pain Female : No painful urination, No blood in urine Physical Exam Vital Signs: Vital Signs Past 12 Hours Date Time Temp Pulse Resp B/P (MAP) Pulse Ox O2 Delivery O2 Flow Rate FiO2 10/26/16 07:35 36.7 74 18 130/72 (91) 92 Room Air 10/25/16 22:51 36.8 100 18 150/86 (107) 94 Room Air 10/25/16 20:15 Room Air Physical Exam: General Appearance: no apparent distress Eyes: bilateral eyes normal inspection ENT: hearing grossly normal Neck: no JVD Respiratory/Chest: no respiratory distress, no accessory muscle use Cardiovascular: no JVD Extremities: normal inspection Neurologic/Psychiatric: alert, normal mood/affect, oriented x 3 Skin: normal color Assessment & Plan Assessment & Plan Treatment Planned: ureteroscopy w/ laser, cystoscopy w/ stent A/P: 7mm distal left ureteral stone AFVSS. Will check a KUB this morning. If stone persists, tx options discussed with the pt have once again included a trial of passage with MET vs left ureteroscopy and stent placement while inpatient. Unfortunately she is not a candidate for ESWL tomorrow as she has taken Motrin this week. She prefers a cysto with left ureteroscopy, laser lithotripsy, and stent placement if stone persists on KUB this morning. Risks and benefits of the procedure discussed with the pt. All questions answered. Pt agrees to the procedure at this time. Consent obtained. Will obtain a pre-op chest x-ray, EKG, and test. Cipro ordered pre-op. Thanks for the consult. Will continue to follow along with primary service.
[2016-10-26 08:19] LABS: BUN/CREATININE RATIO 10.8 (10-20); CALCIUM 8.7 mg/dl (8.5-10.1); CREATININE 0.72 mg/dl (0.60-1.20); POTASSIUM 4.2 mmol/L (3.5-5.1)
[2016-10-26] MEDS ORDERED: MIDAZOLAM HCL 1 MG/ML 2ML VIAL ONE (08:53)
[2016-10-26] MEDS ORDERED: FENTANYL CITRATE INJ 50 MCG/1 ML 2 ML VIAL ONE (08:54)
[2016-10-26] MEDS ORDERED: ONDANSETRON INJ 2 MG/ML 2 ML VIAL ONE (08:55)
[2016-10-26] MEDS ORDERED: LIDOCAINE HCL 2% 2 ML VIAL (20MG/ML) ONE (08:55)
[2016-10-26] MEDS ORDERED: PROPOFOL IV EMULSION 10 MG/ML 20 ML VIAL IV ONE ×2 (08:55)
[2016-10-26] MEDS ORDERED: CONRAY 30% 150ML BOTTLE ONE (09:01)
[2016-10-26 09:08] LABS: PREG INTERNAL NEGATIVE QC NEG CLEAR BACKGROUND; PREG INTERNAL POSITIVE QC POS CONTROL LINE
[2016-10-26] MEDS ORDERED: ATROPINE SULFATE 0.1 MG/ML 5ML SYR IV PRN (09:30)
[2016-10-26] MEDS ORDERED: ONDANSETRON INJ 2 MG/ML 2 ML VIAL IV PRN (09:30)
[2016-10-26] MEDS ORDERED: EpHEDrine SULFATE INJ 50 MG/ML AMP IV PRN (09:30)
[2016-10-26] MEDS ORDERED: HYDROmorphone INJ 1 MG/ML SYR IV PRN (09:30)
[2016-10-26] MEDS ORDERED: MEPERIDINE HCL 25 MG/ML CARP IV PRN (09:30)
[2016-10-26] MEDS ORDERED: FENTANYL CITRATE INJ 50 MCG/1 ML 2 ML VIAL IV PRN (09:30)
[2016-10-26] MEDS ORDERED: LABETALOL HCL IV 5 MG/ML 20ML IV PRN (09:30)
[2016-10-26] MEDS ORDERED: PHENYLEPHRINE 100MCG/ML 5ML SYR ONE (09:37)
--- NOTE | 2016-10-26 10:06 | Discharge Instructions ---
Discharge Instructions Date of Service Oct 26, 2016. Admission Reason for Admission: Left Ureteral Stone Discharge Discharge Diagnosis / Problem: Left ureteral stone s/p laser lithotripsy and stent placement Discharge Goals Goal(s): Decrease discomfort, Improve disease control, Therapeutic intervention Activity Recommendations Activity Limitations: as noted below Lifting Limitations: no more than 25 pounds, gradually increase as tolerated Exercise/Sports Limitations: rest today, gradually increase as tolerated May Resume Sexual Activity: after one week Shower/Bathe: tomorrow . Instructions / Follow-Up Instructions / Follow-Up SundayNov 01 at 1:15 PM in office for removal of stent. KUB Xray beforehand Current Hospital Diet Hospital Diet(s): Regular Diet Discharge Diet Recommended Diet: Regular Diet (good fluid intake) Procedures Procedures Performed: Cystoscopy, Left semi-rigid Ureteroscopy, left retrograde pyleogram, Laser Lithotripsy, basket stone extraction; Stent insertion Pending Studies Studies pending at discharge: yes List of pending studies: Stone analysis Medical Emergencies . Who to Call and When: Medical Emergencies: If at any time you feel your situation is an emergency, please call 911 immediately. . Non-Emergent Contact Non-Emergency issues call your: Urologist Call Non-Emergent contact if: you have a fever, temperature is above 101, your pain is not controlled, your pain is worsening, your pain is unusual for you, your pain is concerning you, you have any medication questions . . "Provider Documentation" section prepared by Karan Holt. . VTE Core Measure Inpt VTE Proph given/why not?: Moisés Matute, SCD's [place] Drug Monitoring Program Search Results: patient reviewed within database, see additional documentation (last Rx recently via ER, none prior - patient low, refill provided)
[2016-10-26] MEDS ORDERED: CIPR-255 PO (10:07)
[2016-10-26] MEDS ORDERED: OXYC1TAB3 PO (10:07)
[2016-10-26] MEDS ORDERED: PHEN-775 PO (10:07)
--- NOTE | 2016-10-26 10:09 | [facility] Post Operative Brief Note ---
Immediate Operative Summary Operative Date Oct 26, 2016. Pre-Operative Diagnosis Left ureteral stone, intractable colic Post-Operative Diagnosis Same as preop Procedure(s) Performed Cystoscopy, Left semi-rigid Ureteroscopy, left retrograde pyleogram, Laser Lithotripsy, basket stone extraction; Stent insertion Surgeon Dr. Hernan Holt Braider Setter Surgeon(s) NA Estimated Blood Loss 5 cc Findings Stone fragmented and removed without evidence of residual stone or ureteral injury, good stent position on fluoroscopy. Specimens A: left ureteral stone fragments- for chemical anaylsis Drains 6 fr 24 cm L loop ureteral stent Anesthesia GALMA Complication(s) None Disposition Recovery Room / PACU
[2016-10-26] MEDS ORDERED: OXYCODONE/ACETAMINOPHEN 5-325 TAB PO PRN (10:15)
--- NOTE | 2016-10-26 10:17 | [facility] Operative Report ---
Operative Report Operative Date Oct 26, 2016. Pre-Operative Diagnosis Left ureteral stone, intractable colic Post-Operative Diagnosis Same as preop Procedure(s) Performed Cystoscopy, Left semi-rigid Ureteroscopy, left retrograde pyleogram, Laser Lithotripsy, basket stone extraction; Stent insertion Surgeon Dr. Hernan Holt Intermediate Teacher Surgeon(s) NA Estimated Blood Loss 5 cc Findings Stone fragmented and removed without evidence of residual stone or ureteral injury, good stent position on fluoroscopy. Specimens A: left ureteral stone fragments- for chemical anaylsis Drains 6 fr 24 cm L loop ureteral stent Anesthesia GALMA Complication(s) None Disposition Recovery Room / PACU Indications Patient is a 46-year-old female who has been seen as an outpatient for history of left-sided ureteral stone. She failed a trial of spontaneous passage with medical expulsive therapy and has been admitted to the ER for intractable colic. After discussion of risks and benefits of various forms of management this morning patient has decided upon ureteroscopy with laser lithotripsy to manage her disease. Please see urology consultation for further details. She is provided with SCDs for DVT prophylaxis and ciprofloxacin for IV antibiotic coverage prior to surgery today. Description of Procedure Patient was properly identified and brought to the operative suite after identification of appropriate consent of the chart. General anesthesia with laryngeal mask was initiated and patient was prepped and draped in standard fashion for this procedure. Full timeout procedure was followed. 22 Montenegrin rigid cystoscope was passed into the bladder under direct visualization bladder was surveyed in its entirety demonstrating no intravesical lesions, papillary masses or calculi. Ureteral orifices were noted to be in the normal anatomic location bilaterally. Left-sided ureteral orifice was cannulated using an open- ended catheter and gentle retrograde pyelography was performed. Calcification within the pelvis consistent with previous KUB demonstrated the patient's left distal ureteral stone, approximately 8 mm in length. This was noted as a filling defect on retrograde pyelography. Sensor tip wire was advanced up to the level of the left renal pelvis and kept until the end of the case as a safety wire. A semirigid ureteroscope was able to be advanced into the ureter without difficulties or resistance. Stone was encountered, fragmented using a 200 laser fiber until the pieces were sufficiently small to allow for basketing with a 0 tip basket and removal. Stone fragments were sent for chemical analysis. After this was complete the ureteroscope was passed back into the ureter up to the level of the proximal ureter without resistance, no residual stones being noted. Complete exit ureteroscopy was performed demonstrating no ureteral tears or injuries. After this was complete cystoscope was backloaded over the safety wire and a 6 Montenegrin 24 cm loop stent was advanced with a full coil noted at the level of the left renal pelvis and redundant loops present within the bladder. Hydronephrotic drip was appreciated. Bladder was drained and cystoscope was removed. Anesthesia was reversed and patient was transferred to recovery room in stable condition. Follow-up care: Patient will be stable for discharge home this afternoon as long she is comfortable tolerating a by mouth diet. Prescription for ciprofloxacin, refill of Percocet and Pyridium provided in the chart. Outpatient appointment next week for cystoscopy and stent removal after checking KUB for residual stone. None were noted on fluoroscopy today. Patient to contact our service should she note any fevers, chills, nausea, vomiting or other difficulties in the outpatient setting. I attest to the content of the Intraoperative Record and any orders documented therein. Any exceptions are noted below.
--- NOTE | 2016-10-26 10:30 | DIAGNOSTIC IMAGING REPORT ---
INTRAOPERATIVE RADIOGRAPHS CLINICAL HISTORY: Left-sided laser lithotripsy and stent placement. Fluoroscopy time: 38 seconds. FINDINGS: 5 spot fluoroscopic views of the left abdomen are correlated with abdominal CT dated 10/22/2016. There is cannulation of the left ureter. A lithotripsy device is advanced. The final 2 images show the proximal end of the left ureteral stent being deployed. The proximal aspect of the stent projects over the left renal pelvis. IMPRESSION: Intraoperative images from a left-sided laser lithotripsy and ureteral stent placement procedure. See operative report for detailed findings. Electronically signed by: Jonathan Webber M.D. 10/26/2016 10:29 AM Dictated Date/Time: 10/26/2016 10:27 AM
--- NOTE | 2016-10-26 10:37 | Anesthesiology Progress Note ---
Anesthesia Post Op Note Date & Time Oct 26, 2016 at 10:37 Vital Signs Pain Intensity: 2 Vital Signs Past 12 Hours Date Time Temp Pulse Resp B/P (MAP) Pulse Ox O2 Delivery O2 Flow Rate FiO2 10/26/16 10:35 99 18 127/82 98 Oxymask 2 10/26/16 10:25 94 12 128/82 100 Oxymask 2 10/26/16 10:15 97 12 129/84 100 Oxymask 5 10/26/16 10:06 36.2 94 12 117/75 100 Oxymask 5 10/26/16 07:35 36.7 74 18 130/72 (91) 92 Room Air 10/25/16 22:51 36.8 100 18 150/86 (107) 94 Room Air Notes Mental Status: alert / awake / arousable, participated in evaluation Pt Amnestic to Procedure: Yes Nausea / Vomiting: adequately controlled Pain: adequately controlled Airway Patency, RR, SpO2: stable & adequate BP & HR: stable & adequate Hydration State: stable & adequate Anesthetic Complications: no major complications apparent
[2016-10-26] MEDS ORDERED: PHENAZOPYRIDINE HCL 200 MG TAB PO PRN (10:45)
[2016-10-26 10:50] VITALS: BP 118/80; PULSE 90; TEMP 36.9; O2SAT 95
[2016-10-26 11:35] VITALS: BP 132/78; TEMP 36.8; O2SAT 96
[2016-10-26 12:00] VITALS: BP 116/76; PULSE 93; O2SAT 97
[2016-10-26] MEDS ORDERED: NURSING VERBAL MED ORDER ONE (12:30)
[2016-10-26 12:54] VITALS: BP 116/76; PULSE 93; TEMP 36.8; O2SAT 97
[2016-10-26 13:00] VITALS: BP 108/71; PULSE 92; TEMP 36.7; O2SAT 97
--- NOTE | 2016-10-26 15:28 | Discharge Summary ---
Discharge Summary Date of Service Oct 26, 2016. Discharge Summary Admission Date: Oct 25, 2016 at 18:36 Discharge Date: Oct 26, 2016 Discharge Disposition: Home Principal Diagnosis: ureterolithiasis Immunizations: Have You Had Influenza Vaccine: No History of Tetanus Vaccine?: Yes History of Pneumococcal: No History of Hepatitis B Vaccine: No Procedures: Immediate Operative Summary Operative Date Oct 26, 2016. Pre-Operative Diagnosis Left ureteral stone, intractable colic Post-Operative Diagnosis Same as preop Procedure(s) Performed Cystoscopy, Left semi-rigid Ureteroscopy, left retrograde pyleogram, Laser Lithotripsy, basket stone extraction; Stent insertion Surgeon Dr. Hernan Holt Smoke Chaser Surgeon(s) NA Estimated Blood Loss 5 cc Findings Stone fragmented and removed without evidence of residual stone or ureteral injury, good stent position on fluoroscopy. Specimens A: left ureteral stone fragments- for chemical anaylsis Drains 6 fr 24 cm L loop ureteral stent Anesthesia GALMA Complication(s) None Disposition Recovery Room / PACU INTRAOPERATIVE RADIOGRAPHS CLINICAL HISTORY: Left-sided laser lithotripsy and stent placement. Fluoroscopy time: 38 seconds. FINDINGS: 5 spot fluoroscopic views of the left abdomen are correlated with abdominal CT dated 10/22/2016. There is cannulation of the left ureter. A lithotripsy device is advanced. The final 2 images show the proximal end of the left ureteral stent being deployed. The proximal aspect of the stent projects over the left renal pelvis. IMPRESSION: Intraoperative images from a left-sided laser lithotripsy and ureteral stent placement procedure. See operative report for detailed findings. Electronically signed by: Jonathan Webber M.D. 10/26/2016 10:29 AM Dictated Date/Time: 10/26/2016 10:27 AM KUB CLINICAL HISTORY: EVALUATE FOR OBSTRUCTION/STONE. COMPARISON STUDY: CT of the abdomen and pelvis October 22, 2016. FINDINGS: Note is made of distal migration of the 7 mm x 5 mm ureteral calculus shown on CT of October 22, 2016. This calculus is now within the distal left ureter. There is a 3 mm right renal calculus. Right pelvic calcifications reflect phleboliths. IMPRESSION: 1. Distal migration of the 7 mm x 5 mm left ureteral calculus which is now within the distal left ureter. 2. 3 mm right renal calculus. Electronically signed by: Bowen Conway M.D. 10/25/2016 6:00 PM Last Resulted CBC 10/26/16 06:57 Last Resulted BMP 10/26/16 06:57 URINE CULTURE SENT - IS PENDING Consultations: urology Medication Reconciliation New Medications: Ciprofloxacin Hcl (Cipro) 500 Mg Tab 500 MG PO BID, #6 TAB Phenazopyridine Hcl (Pyridium) 200 Mg Tab 200 MG PO TID PRN for Bladder pain, #30 TAB Continued Medications: Cholecalciferol (Vitamin D3) 2,000 Unit Cap 2000 INTER.UNIT PO DAILY Cyanocobalamin (Vitamin B12) 1,000 Mcg Tab 1000 MCG PO DAILY Ondasetron Odt (Zofran Odt) 4 Mg Tab 4 MG SL Q6H, #10 TAB Oxycodone Immediate Rel Tab (Roxicodone Ir) 5 Mg Tab 1-2 TAB PO Q4H PRN for Severe Pain, #15 TAB (This prescription has been renewed) initial course Rizatriptan Benzoate (Maxalt) 10 Mg Tab 10 MG PO DAILY PRN for Migraine, TAB Sertraline (Zoloft) 50 Mg Tab 50 MG PO DAILY, TAB Tamsulosin Hcl (Flomax) 0.4 Mg Cap 0.4 MG PO DAILY for 14 Days, #14 CAP [ Control Patch] () 1 PATCH TD WK EVERY SUNDAY Discharge Exam Physical Exam: General Appearance: no apparent distress Eyes: EOMI ENT: hearing grossly normal Neck: trachea midline Respiratory/Chest: no respiratory distress, no accessory muscle use Extremities: normal inspection Neurologic/Psychiatric: caramel candy maker helper II-XII nml as tested, alert, normal mood/affect Skin: normal color, warm/dry Hospital Course admitted with renal colic from ureterolithiasis. failed attempts at outpatient management. admitted, pain control attained, cysto procedure as above. seen post procedure feeling very good overall - pain minimal, no nausea/vomiting. ate well stable for home urology follow up already set up Total Time Spent: Less than 30 minutes This includes examination of the patient, discharge planning, medication reconciliation, and communication with other providers. Discharge Instructions Please refer to the electronic Patient Visit Report (Discharge Instructions) for additional information. Additional Copies To Karan Holt MD, Urology; Nathan Monte M.D.
== END 2016-10-26 14:16 | disposition home or self-care (01) | DRG 692 ==
LOC: C.EDB 16:58 → C.MSN 18:36 → ENRESERV 18:48
PROVIDERS: ADMIT Hospitalist; ATTEND Family Medicine
PROC: 0TF7XZZ Fragmentation in Left Ureter, External Approach (ICD-10-PCS; principal; 2016-10-26 09:45)
PROC: 0T773DZ Dilation of Left Ureter with Intraluminal Device, Percutaneous Approach (ICD-10-PCS; principal; 2016-10-26 09:45)
DX: N20.1 Calculus of ureter (principal); N23 Unspecified renal colic; F32.9 Major depressive disorder, single episode, unspecified; R11.10 Vomiting, unspecified; Z80.42 Family history of malignant neoplasm of prostate; E87.6 Hypokalemia; F41.9 Anxiety disorder, unspecified; Z91.19 Patient's noncompliance with other medical treatment and regimen; Z83.3 Family history of diabetes mellitus

== ENCOUNTER → 2016-11-23 | Outpatient (CLI) | payer BC ==
[~2016-11-23] MED LIST changes: +CIPR-255 PO; -TAMS0.4C38 PO
[2016-11-23 12:53] LABS: BLOOD UREA NITROGEN 12 mg/dl (7-18); BUN/CREATININE RATIO 16.7 (10-20); CREATININE 0.71 mg/dl (0.60-1.20)
== END | disposition home or self-care (01) ==
LOC: C.LABBFT 08:04
PROVIDERS: ATTEND Urology
DX: N20.1 Calculus of ureter (principal)

== ENCOUNTER → 2016-12-04 | Outpatient (CLI) | payer BC ==
[~2016-12-04] MED LIST changes: +OPTIRAY 300 IV PRN
--- NOTE | 2016-12-04 14:35 | DIAGNOSTIC IMAGING REPORT ---
IVP W/OR W/O TOMOGRAMS CLINICAL HISTORY: N20.1 Ureteral stoneno latex allergy, no iodine allergy, not rea nephrocalcinosis COMPARISON STUDY: 10/25/2016 FINDINGS: Survey film suggests a distal left ureteral calculus to have passed. Right kidney is poorly seen. Tomographic sections confirm a 3 mm calcification at the central right kidney. Study is performed following the intravenous injection of 100 cc of nonionic contrast. There is prompt opacification of both urinary tracts. Ureters normal in course and caliber. Bladder fills well and no sign deformity of filling defect. There is no significant void residual. Tomographic sections are negative for hydronephrosis. IMPRESSION: 1. Interval passage of the distal left ureteral calculus. 2. Nonobstructing 3 mm right renal calcification. 3. Intravenous urogram is otherwise negative. The above report was generated using voice recognition software. It may contain grammatical, syntax or spelling errors. Electronically signed by: Leonel Davenport M.D. 12/04/2016 2:34 PM Dictated Date/Time: 12/04/2016 2:32 PM
== END | disposition home or self-care (01) ==
LOC: C.RAD 12:24
PROVIDERS: ATTEND Urology
DX: N20.1 Calculus of ureter (principal); N20.0 Calculus of kidney

== ENCOUNTER → 2016-12-13 | Outpatient (CLI) | payer BC ==
[~2016-12-13] MED LIST changes: -OPTIRAY 300 IV PRN
== END | disposition home or self-care (01) ==
LOC: C.LABSPEC 17:02
PROVIDERS: ATTEND Urology
DX: N20.0 Calculus of kidney (principal)

== ENCOUNTER → 2017-01-08 | Outpatient (CLI) | payer BC | END | disposition home or self-care (01) | LOC: C.PAPS 11:14 | PROVIDERS: ATTEND Obstetrics & Gynecology | DX: Z01.419 Encounter for gynecological examination (general) (routine) without abnormal findings (principal) ==

== ENCOUNTER → 2017-05-15 | Outpatient (CLI) | payer BC ==
[~2017-05-15] MED LIST changes: -ONDA4TAB10 SL
[2017-05-15 12:36] LABS: BASO % 0.2 %; BASO ABS # 0.03 K/uL (0-0.2); EOS % 1.8 %; EOS ABS # 0.26 K/uL (0-0.5); HEMATOCRIT 39.1 % (37-47); HEMOGLOBIN 12.3 g/dL (12.0-16.0); IG# 0.08 K/uL (0.00-0.02); LYMPH % 32.5 %; LYMPH ABS # 4.76 K/uL (1.2-3.4); MEAN CELL VOLUME 85.6 fL (80-100); MEAN CORPUSCULAR HEMOGLOBIN 26.9 pg (25-34); MEAN CORPUSCULAR HGB CONC 31.5 g/dl (32-36); MEAN PLATELET VOLUME 9.8 fL (7.4-10.4); MONO % 6.8 %; MONO ABS # 0.99 K/uL (0.11-0.59); NEUT % 58.2 %; NEUT ABS # 8.52 K/uL (1.4-6.5); PLATELET COUNT 467 K/uL (130-400); RED CELL DISTRIBUTION WIDTH CV 14.8 % (11.5-14.5); RED CELL DISTRIBUTION WIDTH SD 46.3 fL (36.4-46.3); WHITE BLOOD COUNT 14.64 K/uL (4.8-10.8)
[2017-05-15 13:08] LABS: ALBUMIN 3.2 gm/dl (3.4-5.0); ALKALINE PHOSPHATASE 72 U/L (45-117); ALT/SGPT 21 U/L (12-78); AST/SGOT 12 U/L (15-37); BLOOD UREA NITROGEN 16 mg/dl (7-18); CALCIUM 8.8 mg/dl (8.5-10.1); CARBON DIOXIDE 22 mmol/L (21-32); CREATININE 0.92 mg/dl (0.60-1.20); GLUCOSE 123 mg/dl (70-99); POTASSIUM 3.4 mmol/L (3.5-5.1); SODIUM 137 mmol/L (136-145)
[2017-05-15 13:10] LABS: TOTAL PROTEIN 7.7 gm/dl (6.4-8.2); TRANSFERRIN 395 mg/dl (200-360)
== END | disposition home or self-care (01) ==
LOC: C.LABBFT 09:53
PROVIDERS: ATTEND Physician Assistant Medical
DX: M79.1 Myalgia (principal); H93.19 Tinnitus, unspecified ear

== ENCOUNTER 2022-07-28 17:40 | Inpatient (IN) ==
[2022-07-28] MEDS ORDERED: ONDANSETRON INJ 2 MG/ML 2 ML VIAL IV STA (18:39)
[2022-07-28] MEDS ORDERED: SODIUM CHLORIDE 0.9% 1000ML 1,000 ML IV ONE ×2 (18:39→20:59)
[2022-07-28] MEDS ORDERED: MoRPHine SULFATE 4 MG/ML 1 ML CARP\\VIAL IV STA (18:39)
--- NOTE | 2022-07-28 18:42 | Emergency Department Note ---
Impression & Plan Leukocytosis ADMIT ED Provider Note HPI: The patient is a 52-year-old female who is postoperative day #7 after robotic assisted hysterectomy by Dr. Nj, presents the emergency department today with chief complaint of fever. Patient states that approximately 5 AM she awoke with diffuse myalgias. She states that she felt warm and at times had chills. Patient states she had nausea throughout the day but no episodes of vomiting until she arrived here to the ED where she did have 1 episode of emesis. Patient denies any vaginal bleeding or vaginal discharge, patient states she has had some intermittent abdominal pain that is mostly in the mid to lower abdomen that seems to resolve spontaneously after it occurs. This seems to come and go throughout the day. Patient denies any diarrhea. States that she last had a bowel movement on Sunday. Patient states she did take her temperature earlier today and it was as high as 101.2. She did take Tylenol at noon. On arrival here to the ED the patient is hypertensive at 141/98, pulse rate elevated at 113, patient exhibits nonlabored breathing, she is anxious appearing, she is saturating well on room air and is afebrile on arrival. ROS: - Per HPI Differential Diagnosis: Postoperative/intra-abdominal abscess, viral illness to include COVID-19, influenza A, urinary tract infection, pyelonephritis, acute bacterial pneumonia, rhabdomyolysis, DVT, amongst other potential pathologies. *Outpatient medications and allergy history reviewed. *Pertinent external medical records reviewed. PE: General: Alert HEENT: Normocephalic, trachea midline Eyes: Extraocular eye movement is intact, no scleral erythema Pulmonary: Clear to auscultation bilaterally, no wheezing Cardio: Mildly tachycardic rate with regular rhythm GI: Abdomen is soft to palpation, mild tenderness in the lower abdomen palpation without guarding or rigidity, surgical wounds appear without surrounding cellulitis, no purulent drainage : No suprapubic tenderness, external vaginal exam without significant erythema or evidence of cellulitis, no purulent drainage MSK: No evidence of trauma or malformation of the extremities, no edema Skin: No evidence of rash Neuro: Alert, no focal deficits Psychiatric: Cooperative quality assurance monitor final: (As interpreted by myself): - An order was placed for continuous cardiac monitoring - Patient was noted to be in sinus rhythm with a rate of 101 EKG: (As interpreted by myself): Rate: 108 Rhythm: Sinus tachycardia Intervals: Within normal limits ST changes: No ST elevation Time: 1821 Interventions provided in ED: -IV fluid bolus, IV Zosyn, IV morphine, IV Zofran Medical Decision Making: Patient presented to the emergency department with multiple symptoms in the setting of robotic assisted hysterectomy surgery 7 days ago. Shortly after the patient arrived IV was established and lab work obtained, patient was maintained on case monitor. Lab work shows significant leukocytosis of 18.73, blood cultures were ordered, hemoglobin is stable at 12.7, platelet count slightly elevated at 404. CMP shows mild hyponatremia 135, mild hypokalemia 3.4, no acute kidney injury, no critical electrolyte abnormalities are noted. No transaminitis. Total creatinine kinase is normal at 30. Ultrasound imaging of the bilateral lower extremities was obtained given the patient's complaint of lower extremity pain, this does not show any evidence of DVT. COVID-19 testing as well as influenza testing and RSV testing are all negative. Chest x-ray per my interpretation does not show any evidence of acute disease or pneumonia. CT imaging of the abdomen pelvis with IV contrast was obtained and shows evidence of pelvic inflammation, no evidence of any identifiable intra-abdominal abscess. There is mention of wall thickening of the distal ileum possibly secondary to pelvic inflammation. Case was discussed with Dr. Nj. At this time given findings on CT imaging in addition to leukocytosis he would like the patient to be admitted and started on IV anti biotics which I think is reasonable. Case was then discussed with the on-call [employer] provider for admission, Dr. Kelly, who did accept the patient for further management. Prior to admission patient was given IV Zosyn. She appears much more comfortable on my reassessment prior to admission and she is in agreement to the above plan. Consultants: - LENKA, Dr. Nj - LENKA, Dr. Kelly Disposition discussion held by myself with: - Patient and at bedside Diagnosis: 1. Leukocytosis, acute 2. Postoperative pelvic inflammation on CT imaging 3. Fever by history 4. Myalgias 5. Nausea and vomiting, acute 6. Abdominal pain, acute Disposition: Admission Leonel Golden DO Emergency Medicine Past Med/Surg History Medical History Anemia hx of iron infusions- last infusion 10 yrs ago Frequent PVCs GERD (gastroesophageal reflux disease) History of COVID-19 09/14/2021, home test, [facility], [facility] hosp; cough, fever, runny nose, sinus pressure>resolved. History of kidney stones History of panic attacks Lumbar herniated disc Migraines, neuralgic Pelvic pain Uterine fibroid Surgical History History of colonoscopy (06/09/14) Dr. Waldemar Driscoll, [facility], normal results, recheck 10 years History of esophagogastroduodenoscopy (EGD) History of lithotripsy History of wisdom tooth extraction Status post cystoscopy with ureteral stent placement Status post excision of lipoma off of right shoulder Family History Father Prostate cancer Family history of diabetes mellitus Grandmother Hypothyroidism Breast cancer Daughter Hypothyroidism Aunt Hypothyroidism Grandmother (Paternal) Family history of diabetes mellitus Other No family history of adverse response to anesthesia Denies family history of Ovarian cancer Myocardial infarction Colorectal cancer Social History Smoking Status: Never smoker Second Hand Exposure: No; Do You Dip or Chew Tobacco: No; Hx Alcohol Use: Yes Alcohol type: wine and hard liquor Alcohol Intake Frequency: Monthly or Less Hx Substance Use: No Preferred Language: Gambian Communication Ability: Effective Visual Impairment: Limited Hearing Ability: Normal Radiology Rn Required: No Beliefs That Will Affect Care: None marital status: Current Living Situation: Spouse and Family current occupational status: employed 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 [employer] Feels Safe at Home: Yes Childhood Exposure to Second-Hand Smoke: Yes Diet: regular caffeine: Yes during the past year weight has: remained stable Dental Care, Regularly: Yes Physical Activity Frequency: 1-2 Times per Week Seatbelt Use: always Sunscreen Use: Yes Assistive Devices: Glasses Allergies Allergies Allergy/AdvReac Type Severity Reaction Status Date / Time No Known Allergies Allergy Verified 07/28/22 20:49 Home Meds Home Medications Medication Instructions Recorded Confirmed cholecalciferol (vitamin D3) 25 25 mcg PO QDL 11/11/20 07/28/22 mcg (1,000 unit) tablet hydroxychloroquine 200 mg tablet 400 mg PO HS 04/14/21 07/28/22 (Plaquenil) multivitamin 1 tab PO QDL 08/29/21 07/28/22 rizatriptan 10 mg tablet 10 mg PO UD PRN migraine headache 10/31/21 07/28/22 meloxicam 7.5 mg tablet 7.5 mg PO DAILY PRN Pain 04/27/22 07/28/22 sertraline 100 mg tablet 100 mg PO QDL 07/10/22 07/28/22 turmeric 400 mg capsule 400 mg PO QDL 07/10/22 07/28/22 pantoprazole 40 mg tablet,delayed 4 mg PO .Q3-4DAYS 07/28/22 07/28/22 release Previous Rx's Medication Instructions Recorded hydroxyzine pamoate 25 mg capsule 25 mg PO DAILY PRN panic attack(s) 02/08/22 #15 caps triamcinolone acetonide 0.1 % 1 applic topical BID PRN rash #30 03/15/22 topical cream grams ibuprofen 600 mg tablet 600 mg PO Q8H PRN pain #20 tabs 07/21/22 Results & Data (ED) Vital Signs Vital Signs - 24 hr 07/28/22 17:50 07/28/22 18:31 07/28/22 18:30 Temperature 36.9 C Temperature Source Oral Pulse Rate 121 H 113 H 114 H Pulse Rate [Apical] Pulse Rate from SpO2 Sensor 113 H Respiratory Rate 20 22 Respiratory Effort / Characteristics Non-Labored Respiratory Depth Blood Pressure 141/98 H Blood Pressure [Left Arm] Blood Pressure Mean 112 Blood Pressure Mean [Left Arm] Pulse Oximetry 98 97 Oxygen Delivery Method Room Air Sepsis Recent Fever Within 48 Hours Yes Sepsis New/Unexplained Change in Mental Status N/A Sepsis Action Taken by Nursing No Action Required 07/28/22 20:34 07/28/22 21:19 Temperature Temperature Source Pulse Rate Pulse Rate [Apical] 110 H 104 H Pulse Rate from SpO2 Sensor Respiratory Rate 16 16 Respiratory Effort / Characteristics Respiratory Depth Normal Blood Pressure Blood Pressure [Left Arm] 122/89 119/76 Blood Pressure Mean Blood Pressure Mean [Left Arm] 100 90 Pulse Oximetry 95 93 Oxygen Delivery Method Room Air Room Air Sepsis Recent Fever Within 48 Hours Sepsis New/Unexplained Change in Mental Status Sepsis Action Taken by Nursing Laboratory Data 07/28/22 18:30 07/28/22 18:30 Lab Results 07/28/22 07/28/22 07/28/22 Range/Units 18:30 18:30 18:45 WBC 18.73 H (4.8-10.8) K/ul RBC 4.40 (4.20-5.40) M/uL Hgb 12.7 (12.0-16.0) g/dl Hct 37.0 (37.0-47.0) % MCV 84.1 (80.0-100.0) fL MCH 28.9 (25.0-34.0) pg MCHC 34.3 (32.0-36.0) g/dL RDW Std Deviation 42.7 (36.4-46.3) fL RDW Coeff of Po 13.9 (11.5-14.5) % Plt Count 404 H (130-400) K/uL MPV 9.9 (9.4-12.4) fL Immature Gran % (Auto) 0.6 % Neut % (Auto) 84.8 % Lymph % (Auto) 8.2 % Glenn % (Auto) 5.9 % Eos % (Auto) 0.4 % Baso % (Auto) 0.1 % Neut # (Auto) 15.89 H (1.40-6.50) K/uL Lymph # (Auto) 1.53 (1.2-3.4) K/uL Glenn # (Auto) 1.11 H (0.11-0.59) K/uL Eos # (Auto) 0.07 (0-0.50) K/uL Baso # (Auto) 0.02 (0-0.2) K/uL Immature Gran # (Auto) 0.11 (0.01-0.20) K/uL Sodium 135 L (136-145) mmol/L Potassium 3.4 L (3.5-5.1) mmol/L Chloride 101 (98-107) mmol/L Carbon Dioxide 22 (21-32) mmol/L Anion Gap 12 H (3-11) BUN 15 (6-23) mg/dl Creatinine 0.66 (0.6-1.2) mg/dl Est Cr Clr Drug Dosing Not Reportable Est GFR ( Amer) 117.7 ml/min Est GFR (Non-Af Amer) 101.6 ml/min BUN/Creatinine Ratio 22.7 H (10-20) Glucose 128 H (70-99(Fasting)) mg/dl Calcium 9.6 (8.6-10.3) mg/dl Total Bilirubin 0.9 (0.2-1.0) mg/dl AST 19 (13-39) U/L ALT 20 (7-52) U/L Alkaline Phosphatase 82 (34-104) U/L Total Creatine Kinase 30 (26-192) U/L Total Protein 7.4 (6.0-8.3) gm/dl Albumin 4.2 (3.4-5.0) gm/dl Globulin 3.2 (2.5-4.0) gm/dl Albumin/Globulin Ratio 1.3 (0.9-2) Urine Color Urine Appearance (Clear) Urine pH (4.5-7.5) Ur Specific [place] (1.000-1.030) Urine Protein (Negative) Urine Glucose (UA) (Negative) Urine Ketones (Negative) Urine Blood (Negative) Urine Nitrite (Negative) Urine Bilirubin (Negative) Urine Urobilinogen (Negative) Ur Leukocyte Esterase (Negative) SARS-CoV-2 (PCR) NEGATIVE (Negative) Influenza Type A (PCR) Negative (Neg) Influenza Type B (PCR) Negative (Neg) RSV (RT-PCR) Negative (Neg) 07/28/22 Range/Units 20:30 WBC (4.8-10.8) K/ul RBC (4.20-5.40) M/uL Hgb (12.0-16.0) g/dl Hct (37.0-47.0) % MCV (80.0-100.0) fL MCH (25.0-34.0) pg MCHC (32.0-36.0) g/dL RDW Std Deviation (36.4-46.3) fL RDW Coeff of Po (11.5-14.5) % Plt Count (130-400) K/uL MPV (9.4-12.4) fL Immature Gran % (Auto) % Neut % (Auto) % Lymph % (Auto) % Glenn % (Auto) % Eos % (Auto) % Baso % (Auto) % Neut # (Auto) (1.40-6.50) K/uL Lymph # (Auto) (1.2-3.4) K/uL Glenn # (Auto) (0.11-0.59) K/uL Eos # (Auto) (0-0.50) K/uL Baso # (Auto) (0-0.2) K/uL Immature Gran # (Auto) (0.01-0.20) K/uL Sodium (136-145) mmol/L Potassium (3.5-5.1) mmol/L Chloride (98-107) mmol/L Carbon Dioxide (21-32) mmol/L Anion Gap (3-11) BUN (6-23) mg/dl Creatinine (0.6-1.2) mg/dl Est Cr Clr Drug Dosing Est GFR ( Amer) ml/min Est GFR (Non-Af Amer) ml/min BUN/Creatinine Ratio (10-20) Glucose (70-99(Fasting)) mg/dl Calcium (8.6-10.3) mg/dl Total Bilirubin (0.2-1.0) mg/dl AST (13-39) U/L ALT (7-52) U/L Alkaline Phosphatase (34-104) U/L Total Creatine Kinase (26-192) U/L Total Protein (6.0-8.3) gm/dl Albumin (3.4-5.0) gm/dl Globulin (2.5-4.0) gm/dl Albumin/Globulin Ratio (0.9-2) Urine Color Dark Yellow Urine Appearance Clear (Clear) Urine pH 6.0 (4.5-7.5) Ur Specific [place] > 1.045 H (1.000-1.030) Urine Protein Negative (Negative) Urine Glucose (UA) Negative (Negative) Urine Ketones 1+ H (Negative) Urine Blood Negative (Negative) Urine Nitrite Negative (Negative) Urine Bilirubin Negative (Negative) Urine Urobilinogen Negative (Negative) Ur Leukocyte Esterase Negative (Negative) SARS-CoV-2 (PCR) (Negative) Influenza Type A (PCR) (Neg) Influenza Type B (PCR) (Neg) RSV (RT-PCR) (Neg) Administered Medications Sodium Chloride (Nss 1000ml) 1,000 mls @ 999 mls/hr IV .Q1H1M ONE Stop: 07/28/22 21:59 Last Admin: 07/28/22 21:07 Dose: 999 mls/hr Documented By: AN Discontinued Medications Sodium Chloride (Nss 1000ml) 1,000 mls @ 999 mls/hr IV .Q1H1M ONE Stop: 07/28/22 19:39 Last Infusion: 07/28/22 19:47 Dose: 0 mls/hr Documented By: Admin: 07/28/22 18:44 Dose: 999 mls/hr Documented By: VALENTINA Piperacillin Sod/Tazobactam Sod (Zosyn) 4.5 gm in 120 mls @ 240 mls/hr IV NOW ONE Stop: 07/28/22 21:46 Last Infusion: 07/28/22 21:57 Dose: 0 mls/hr Documented By: Admin: 07/28/22 21:26 Dose: 240 mls/hr Documented By: FLACA Ioversol (Optiray 320 100ml) 93 ml IV ONCE ONE Stop: 07/28/22 20:18 Last Admin: 07/28/22 20:19 Dose: 93 ml Documented By: MEÑO Morphine Sulfate (Morphine Sulfate 4 Mg/Ml 1 Ml Carp\Vial) 4 mg IV NOW STA Stop: 07/28/22 18:40 Last Admin: 07/28/22 18:44 Dose: 4 mg Documented By: VALENTINA Ondansetron HCl (Ondansetron Inj 2 Mg/Ml 2 Ml Vial) 4 mg IV NOW STA Stop: 07/28/22 18:40 Last Admin: 07/28/22 18:44 Dose: 4 mg Documented By: VALENTINA Imaging Data Radiologist's Impression: Venous Doppler Study 07/28/22 18:40 Exam(s): US VENOUS BILATERAL LOWER EXTREMITIES EXAM: US Duplex Bilateral Lower Extremities Veins CLINICAL HISTORY: Reason for exam: leg pain, eval for DVT, recent surgery. TECHNIQUE: Real-time duplex ultrasound scan of the bilateral lower extremity veins integrating B-mode two-dimensional vascular structure, Doppler spectral analysis, color flow Doppler imaging and compression. COMPARISON: No relevant prior studies available. FINDINGS: Right deep veins: Unremarkable. No DVT in the right common femoral, femoral, proximal deep femoral or popliteal veins. The veins demonstrate normal color flow, are normally compressible, with normal phasic flow and/or augmentation response. Left deep veins: Unremarkable. No DVT in the left common femoral, femoral, proximal deep femoral or popliteal veins. The veins demonstrate normal color flow, are normally compressible, with normal phasic flow and/or augmentation response. Soft tissues: No acute findings. No popliteal cyst. IMPRESSION: Normal bilateral lower extremity duplex venous ultrasound. Electronically signed by: Esteban Hylton M.D. 07/28/22 20:47 PM Abdomen/Pelvis CT 07/28/22 19:26 Exam(s): CT ABDOMEN + PELVIS With Contrast IV Amt: 93ml EXAM: CT Abdomen and Pelvis With Intravenous Contrast CLINICAL HISTORY: Reason for exam: Low abd px, recent hysterectomy,eval for infection. TECHNIQUE: Axial computed tomography images of the abdomen and pelvis with intravenous contrast. CTDI is 24.38 mGy and DLP is 1294.44 mGy-cm. Automated exposure control was utilized for the study. A dose lowering technique was utilized adhering to the principles of ALARA. CONTRAST: Patient received 93ml of IV contrast COMPARISON: 04/27/2022 FINDINGS: Lung bases: Unremarkable. No mass. No consolidation. ABDOMEN: Liver: Unremarkable. No mass. Gallbladder and bile ducts: Unremarkable. No calcified stones. No ductal dilation. Pancreas: Unremarkable. No mass. No ductal dilation. Spleen: Unremarkable. No splenomegaly. Adrenals: Unremarkable. No mass. Kidneys and ureters: 0.2 cm nonobstructing left lower pole renal calculus. 0.2 cm either nonobstructing mid right renal calculus. 0.6 cm simple cyst arising off the upper pole of the left kidney. No further workup is required. Stomach and bowel: There is wall thickening of the distal 20 cm of the ileum which may be reactive secondary to the pelvic inflammation. No obstruction. PELVIS: Appendix: No findings to suggest acute appendicitis. Bladder: Unremarkable. No mass. Reproductive: Unremarkable as visualized. ABDOMEN and PELVIS: Intraperitoneal space: Inflammation throughout the pelvis and surgical bed. Small amount of free fluid in the pelvis without evidence of a focal fluid collection is identified to suggest an abscess. No hematoma. No free air. Bones/joints: No acute fracture. No dislocation. Soft tissues: Unremarkable. Vasculature: Unremarkable. No abdominal aortic aneurysm. Lymph nodes: Unremarkable. No enlarged lymph nodes. IMPRESSION: 1. Inflammation throughout the pelvis and surgical bed. Small amount of free fluid in the pelvis without evidence of a focal fluid collection is identified to suggest an abscess. 2. Wall thickening of the distal 20 cm of the ileum which may be reactive secondary to the pelvic inflammation. 3. Bilateral 0.2 cm nonobstructing renal calculi. Electronically signed by: Esteban Hylton M.D. 07/28/22 21:02 PM Discharge Plan Visit Data Chief Complaint: Referred by Doctor Stated Complaint: REF BY DOC,POST OP COMPLICATIONS,FEVER,CHILLS,PAIN ED Provider: Leonel Golden Discharge Problem: Leukocytosis Patient Disposition: Admitted As Inpatient Forms Stand Alone Forms: [facility] Prescriptions Prescriptions: No Action hydroxyzine pamoate 25 mg capsule 25 mg PO DAILY PRN (Reason: panic attack(s)) Qty: 15 0RF triamcinolone acetonide 0.1 % cream 1 applic topical BID PRN (Reason: rash) Qty: 30 2RF cholecalciferol (vitamin D3) 25 mcg (1,000 unit) tablet 25 mcg PO QDL hydroxychloroquine [Plaquenil] 200 mg tablet 400 mg PO HS sertraline 100 mg tablet 100 mg PO QDL turmeric 400 mg Capsule 400 mg PO QDL ibuprofen 600 mg tablet 600 mg PO Q8H PRN (Reason: pain) Qty: 20 0RF multivitamin Tablet 1 tab PO QDL rizatriptan 10 mg tablet 10 mg PO UD PRN (Reason: migraine headache) Rx Instructions: MAY REPEAT AFTER 2 HOURS OF FIRST DOSE meloxicam 7.5 mg Tablet 7.5 mg PO DAILY PRN (Reason: Pain) pantoprazole 40 mg tablet,delayed release (DR/EC) 4 mg PO .Q3-4DAYS Referrals Referrals: Renetta Wright MD [Primary Care Provider] - Leukocytosis Qualifiers: Leukocytosis type: unspecified Qualified Code(s): D72.829 - Elevated white blood cell count, unspecified
[2022-07-28 19:05] LABS: Alanine Aminotransferase 20 U/L (7-52); Albumin Globulin Ratio 1.3 (0.9-2); Albumin Level 4.2 gm/dl (3.4-5.0); Alkaline Phosphatase 82 U/L (34-104); Aspartate Aminotransferase 19 U/L (13-39); BUN Creatinine Ratio 22.7 (10-20); Bilirubin,Total 0.9 mg/dl (0.2-1.0); Blood Urea Nitrogen 15 mg/dl (6-23); Calcium 9.6 mg/dl (8.6-10.3); Carbon Dioxide 22 mmol/L (21-32); Est GFR (African American) 117.7 ml/min; Est GFR (Non-African American) 101.6 ml/min; Globulin 3.2 gm/dl (2.5-4.0); Glucose 128 mg/dl (70-99(Fasting)); Total Protein 7.4 gm/dl (6.0-8.3)
[2022-07-28 19:11] LABS: Basophils # (auto) 0.02 K/uL (0-0.2); Basophils % (auto) 0.1 %; Eosinophils # (auto) 0.07 K/uL (0-0.50); Eosinophils % (auto) 0.4 %; Hemoglobin 12.7 g/dl (12.0-16.0); Immature Granulocytes # (auto) 0.11 K/uL (0.01-0.20); Immature Granulocytes % (auto) 0.6 %; Lymphocytes # (auto) 1.53 K/uL (1.2-3.4); Lymphocytes % (auto) 8.2 %; Mean Corpuscular Hemoglobin 28.9 pg (25.0-34.0); Mean Corpuscular Hgb Conc 34.3 g/dL (32.0-36.0); Mean Corpuscular Volume 84.1 fL (80.0-100.0); Mean Platelet Volume 9.9 fL (9.4-12.4); Monocytes # (auto) 1.11 K/uL (0.11-0.59); Monocytes % (auto) 5.9 %; Neutrophils # (auto) 15.89 K/uL (1.40-6.50); Neutrophils % (auto) 84.8 %; Platelet Count 404 K/uL (130-400); RDW Coefficient of Variation 13.9 % (11.5-14.5); RDW Standard Deviation 42.7 fL (36.4-46.3); White Blood Count 18.73 K/ul (4.8-10.8)
[2022-07-28 19:27] LABS: Anion Gap 12 (3-11); Chloride 101 mmol/L (98-107); Potassium 3.4 mmol/L (3.5-5.1); Sodium 135 mmol/L (136-145)
[2022-07-28 19:54] LABS: Influenza A virus by PCR Negative (Neg); Influenza B virus by PCR Negative (Neg); RSV by PCR Negative (Neg); SARS CoV2 RNA(COVID-19) Ceph NEGATIVE (Negative)
[2022-07-28] MEDS ORDERED: OPTIRAY 320 100ml IV ONE (20:17)
--- NOTE | 2022-07-28 20:47 | Ultrasound Report ---
Exam(s): US VENOUS BILATERAL LOWER EXTREMITIES EXAM: US Duplex Bilateral Lower Extremities Veins CLINICAL HISTORY: Reason for exam: leg pain, eval for DVT, recent surgery. TECHNIQUE: Real-time duplex ultrasound scan of the bilateral lower extremity veins integrating B-mode two-dimensional vascular structure, Doppler spectral analysis, color flow Doppler imaging and compression. COMPARISON: No relevant prior studies available. FINDINGS: Right deep veins: Unremarkable. No DVT in the right common femoral, femoral, proximal deep femoral or popliteal veins. The veins demonstrate normal color flow, are normally compressible, with normal phasic flow and/or augmentation response. Left deep veins: Unremarkable. No DVT in the left common femoral, femoral, proximal deep femoral or popliteal veins. The veins demonstrate normal color flow, are normally compressible, with normal phasic flow and/or augmentation response. Soft tissues: No acute findings. No popliteal cyst. IMPRESSION: Normal bilateral lower extremity duplex venous ultrasound. Electronically signed by: Esteban Hylton M.D. 07/28/22 20:47 PM
[2022-07-28 20:50] LABS: Appearance Urine Clear (Clear); Bilirubin Urine Negative (Negative); Blood Urine Negative (Negative); Color Urine Dark Yellow; Glucose Urine UA Negative (Negative); Ketones Urine 1+ (Negative); Leukocyte Esterase Urine Negative (Negative); Nitrite Urine Negative (Negative); Protein Urine Negative (Negative); Specific Gravity Urine > 1.045 (1.000-1.030); Urobilinogen Urine Negative (Negative)
--- NOTE | 2022-07-28 21:03 | CT Scan Report ---
Exam(s): CT ABDOMEN + PELVIS With Contrast IV Amt: 93ml EXAM: CT Abdomen and Pelvis With Intravenous Contrast CLINICAL HISTORY: Reason for exam: Low abd px, recent hysterectomy,eval for infection. TECHNIQUE: Axial computed tomography images of the abdomen and pelvis with intravenous contrast. CTDI is 24.38 mGy and DLP is 1294.44 mGy-cm. Automated exposure control was utilized for the study. A dose lowering technique was utilized adhering to the principles of ALARA. CONTRAST: Patient received 93ml of IV contrast COMPARISON: 04/27/2022 FINDINGS: Lung bases: Unremarkable. No mass. No consolidation. ABDOMEN: Liver: Unremarkable. No mass. Gallbladder and bile ducts: Unremarkable. No calcified stones. No ductal dilation. Pancreas: Unremarkable. No mass. No ductal dilation. Spleen: Unremarkable. No splenomegaly. Adrenals: Unremarkable. No mass. Kidneys and ureters: 0.2 cm nonobstructing left lower pole renal calculus. 0.2 cm either nonobstructing mid right renal calculus. 0.6 cm simple cyst arising off the upper pole of the left kidney. No further workup is required. Stomach and bowel: There is wall thickening of the distal 20 cm of the ileum which may be reactive secondary to the pelvic inflammation. No obstruction. PELVIS: Appendix: No findings to suggest acute appendicitis. Bladder: Unremarkable. No mass. Reproductive: Unremarkable as visualized. ABDOMEN and PELVIS: Intraperitoneal space: Inflammation throughout the pelvis and surgical bed. Small amount of free fluid in the pelvis without evidence of a focal fluid collection is identified to suggest an abscess. No hematoma. No free air. Bones/joints: No acute fracture. No dislocation. Soft tissues: Unremarkable. Vasculature: Unremarkable. No abdominal aortic aneurysm. Lymph nodes: Unremarkable. No enlarged lymph nodes. IMPRESSION: 1. Inflammation throughout the pelvis and surgical bed. Small amount of free fluid in the pelvis without evidence of a focal fluid collection is identified to suggest an abscess. 2. Wall thickening of the distal 20 cm of the ileum which may be reactive secondary to the pelvic inflammation. 3. Bilateral 0.2 cm nonobstructing renal calculi. Electronically signed by: Esteban Hylton M.D. 07/28/22 21:02 PM
[2022-07-28] MEDS ORDERED: PIPERACILLIN/TAZOBACTAM 4.5 GM/120 ML BAG IV ONE (21:17)
[2022-07-28 21:18] LABS: Creatine Kinase 30 U/L (26-192)
[2022-07-28] MEDS ORDERED: MELOXICAM 7.5 MG TAB PO PRN (22:10)
[2022-07-28] MEDS ORDERED: hydrOXYzine HCl 25 MG TAB PO PRN (22:10)
[2022-07-28] MEDS ORDERED: RIZATRIPTAN BENZOATE 10 MG TAB PO PRN (22:10)
[2022-07-28] MEDS ORDERED: IBUPROFEN 600 MG TAB PO PRN (22:10)
--- NOTE | 2022-07-28 22:38 | XRay Report ---
SINGLE VIEW CHEST CLINICAL HISTORY: Fever. Leukocytosis. FINDINGS: An AP, portable, upright chest radiograph is compared to study dated 07/29/2021. The cardiom ediastinal silhouette is unremarkable. The lungs and pleural spaces are clear. No pneumothorax is see n. The bony thorax is grossly intact. IMPRESSION: No active disease in the chest. ACT 112: Negative or not required by law. Electronically signed by: Jonathan Webber M.D. 07/28/2022 10:36 PM
[2022-07-28] MEDS ORDERED: diphenhydrAMINE Capsule 25 MG CAP PO PRN (22:45)
--- NOTE | 2022-07-28 23:56 | History & Physical Report ---
Date of Service July 28, 2022 Assessment & Plan (1) Leukocytosis: Plan: I reviewed the patient's imaging: CT abd/pelvis, venous doppler, chest x-ray. At this point, working diagnosis is possible vaginal cuff cellulitis. There does not appear to be a pelvic abscess on CT imaging. No evidence of DVT on doppler, no pneumonia on CXR. No urinary complaints. Incisions are healing well. She received a dose of Zosyn in the ER - will plan to continue this regimen. Will recheck labs (CBC, CMP) in the morning, and continue to monitor patient clinically. At this time, ok to continue eating/drinking as tolerated. Ambulation as tolerated, and has SCDs on while in bed. Admission and Anticipated Discharge Date Admission Date: July 28, 2022 History of Present Illness Chief Complaint: fever Primary Care Provider: Renetta Wright MD 51yo presented to ER today with fever, nausea, aching joints in pelvis. She recently underwent laparoscopic hysterectomy with robotic assist, 07/21/[address] Nj. She had been feeling well until this morning, when she woke up at approximately 5am with these symptoms. Had a temperature of 101.2 at home today. Took Tylenol once at noon. Vomited once, on arrival to ER. Prior to today, had been eating/drinking normally. Some constipation, but had a bowel movement on Sunday. Urinating normally. Allergies Allergy/AdvReac Type Severity Reaction Status Date / Time No Known Allergies Allergy Verified 07/28/22 20:49 Home Medications Medication Instructions Recorded Confirmed Type cholecalciferol (vitamin D3) 25 25 mcg PO QDL 11/11/20 07/28/22 History mcg (1,000 unit) tablet hydroxychloroquine 200 mg tablet 400 mg PO HS 04/14/21 07/28/22 History (Plaquenil) multivitamin 1 tab PO QDL 08/29/21 07/28/22 History rizatriptan 10 mg tablet 10 mg PO UD PRN migraine headache 10/31/21 07/28/22 History hydroxyzine pamoate 25 mg capsule 25 mg PO DAILY PRN panic attack(s) 02/08/22 07/28/22 Rx #15 caps triamcinolone acetonide 0.1 % 1 applic topical BID PRN rash #30 03/15/22 07/28/22 Rx topical cream grams meloxicam 7.5 mg tablet 7.5 mg PO DAILY PRN Pain 04/27/22 07/28/22 History sertraline 100 mg tablet 100 mg PO QDL 07/10/22 07/28/22 History turmeric 400 mg capsule 400 mg PO QDL 07/10/22 07/28/22 History ibuprofen 600 mg tablet 600 mg PO Q8H PRN pain #20 tabs 07/21/22 07/28/22 Rx pantoprazole 40 mg tablet,delayed 4 mg PO .Q3-4DAYS 07/28/22 07/28/22 History release Patient History Medical History Anemia hx of iron infusions- last infusion 10 yrs ago Frequent PVCs GERD (gastroesophageal reflux disease) History of COVID-19 09/14/2021, home test, [facility], not hosp; cough, fever, runny nose, sinus pressure>resolved. History of kidney stones History of panic attacks Lumbar herniated disc Migraines, neuralgic Pelvic pain Uterine fibroid Surgical History History of colonoscopy (06/09/14) Dr. Waldemar Driscoll, [facility], normal results, recheck 10 years History of esophagogastroduodenoscopy (EGD) History of lithotripsy History of wisdom tooth extraction Status post cystoscopy with ureteral stent placement Status post excision of lipoma off of right shoulder Family History Father Prostate cancer Family history of diabetes mellitus Grandmother Hypothyroidism Breast cancer Daughter Hypothyroidism Aunt Hypothyroidism Grandmother (Paternal) Family history of diabetes mellitus Other No family history of adverse response to anesthesia Denies family history of Ovarian cancer Myocardial infarction Colorectal cancer Social History Smoking Status: Never smoker Second Hand Exposure: No; Do You Dip or Chew Tobacco: No; Tobacco Cessation Education Requested by Patient: No Hx Alcohol Use: Yes Alcohol type: beer and wine Alcohol Intake Frequency: Monthly or Less Hx Substance Use: Yes Preferred Language: Azeri Communication Ability: Effective Visual Impairment: Limited Hearing Ability: Normal [employer] Operator Required: No Beliefs That Will Affect Care: None marital status: Current Living Situation: Spouse current occupational status: employed 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 Mildly tender low pelvis, appropriate postop exam. Incisions CDI. Small amout of expected bruising at incision sites. : did not repeat speculum exam, external genitalia normal appearing. No obvious bruising, no vaginal bleeding. Ext: no edema, no calf tenderness. Results & Data Vital Signs (Past 12 Hours) Vital Signs Temp Pulse Pulse Pulse Resp BP BP 07/28/22 22:20 36.9 C 102 H 18 115/75 07/28/22 21:19 104 H 16 119/76 07/28/22 20:34 110 H 16 122/89 07/28/22 18:30 114 H 22 07/28/22 18:31 113 H 07/28/22 17:50 36.9 C 121 H 20 141/98 H Pulse Ox O2 Del Method 07/28/22 22:20 97 Room Air 07/28/22 21:19 93 Room Air 07/28/22 20:34 95 Room Air 07/28/22 18:30 97 07/28/22 18:31 07/28/22 17:50 98 Room Air Coding Level of Care Code 48369 INT INP/OBS CARE 2/55MIN Diagnoses Leukocytosis D72.829 Leukocytosis type: unspecified (1) Leukocytosis Leukocytosis type: unspecified Qualified Code(s): D72.829 - Elevated white blood cell count, unspecified
[2022-07-29] MEDS: PIPERACILLIN/TAZOBACTAM 4.5 GM in DEXTROSE 5% 100 ML IV SCH ×3 (03:10→18:50)
[2022-07-29 07:03] LABS: Basophils # (auto) 0.02 K/uL (0-0.2); Basophils % (auto) 0.1 %; Eosinophils # (auto) 0.15 K/uL (0-0.50); Eosinophils % (auto) 0.9 %; Hematocrit (blood only) 31.5 % (37.0-47.0); Hemoglobin 10.2 g/dl (12.0-16.0); Immature Granulocytes # (auto) 0.12 K/uL (0.01-0.20); Immature Granulocytes % (auto) 0.7 %; Lymphocytes # (auto) 2.03 K/uL (1.2-3.4); Lymphocytes % (auto) 11.7 %; Mean Corpuscular Hemoglobin 28.5 pg (25.0-34.0); Mean Corpuscular Hgb Conc 32.4 g/dL (32.0-36.0); Mean Platelet Volume 9.8 fL (9.4-12.4); Monocytes # (auto) 1.39 K/uL (0.11-0.59); Neutrophils # (auto) 13.59 K/uL (1.40-6.50); Neutrophils % (auto) 78.6 %; Platelet Count 328 K/uL (130-400); RDW Coefficient of Variation 14.1 % (11.5-14.5); RDW Standard Deviation 45.7 fL (36.4-46.3); Red Blood Count 3.58 M/uL (4.20-5.40)
[2022-07-29 07:29] LABS: Albumin Globulin Ratio 1.2 (0.9-2); Albumin Level 3.2 gm/dl (3.4-5.0); BUN Creatinine Ratio 15.4 (10-20); Bilirubin,Total 0.9 mg/dl (0.2-1.0); Calcium 8.3 mg/dl (8.6-10.3); Creatinine Clr Calc Pharmacy 100.7 ml/min; Est GFR (African American) 118.3 ml/min; Est GFR (Non-African American) 102.1 ml/min; Globulin 2.6 gm/dl (2.5-4.0); Potassium 3.5 mmol/L (3.5-5.1); Total Protein 5.8 gm/dl (6.0-8.3)
--- NOTE | 2022-07-29 08:13 | Gynecologic Progress Note ---
Date of Service July 29, 2022 Assessment & Plan (1) Vaginal cuff cellulitis: Plan: Plan for continue Zosyn, continue to monitor clinically at this time. Patient is agreeable with this plan. Admission and Anticipated Discharge Date Admission Date: July 28, 2022 Subjective Patient is feeling somewhat better this morning. She was able to get some sleep with benadryl overnight. She has been afebrile overnight. Has not tried to eat anything. Passing some gas, also feeling some gassy pains in abdomen. Feels like her hip/joint pains have improved. Physical Exam Physical Exam: Gen: AAOx3 NAD Abd: soft, NTTP, nondistended. Incisions CDI. Ext: SCDs on, no edema Results & Data Vital Signs (Past 12 Hours) Vital Signs Temp Pulse Pulse Resp BP BP Pulse Ox 07/29/22 03:13 36.5 C 85 16 99/63 L 07/28/22 22:20 36.9 C 102 H 18 115/75 97 07/28/22 21:19 104 H 16 119/76 93 07/28/22 20:34 110 H 16 122/89 95 O2 Del Method 07/29/22 03:13 07/28/22 22:20 Room Air 07/28/22 21:19 Room Air 07/28/22 20:34 Room Air
--- NOTE | 2022-07-29 08:18 | Communication Note ---
Date of Service: July 29, 2022 Update I have spoken to on-call with the patient and have talked and met with the bedside the patient patient is significantly better however white count is still elevated she is on Zosyn for presumed pelvic cuff cellulitis the reading on the CT scan is inflammation in the pelvis likely related pelvic cuff cellulitis some of her symptoms have improved including her leg pain however her lower abdomen sometimes feels discomfort with gas moving around however this seems to resolve quickly Physical exam her incisions are clean dry and intact her pelvic exam shows the cuff is intact on bimanual palpation there is some tenderness especially on the right side of the cuff Impression and plan I think this is likely Cellulitis she is on Zosyn therapy we will see how she responds I would like her white blood cell count to improve however she has only had really 2 doses of Zosyn so far so we will be patient with this will be available for any concerns on-call team is fully aware
[2022-07-29] MEDS: ACETAMINOPHEN 325 MG TAB PO PRN ×2 (09:58→17:46)
[2022-07-29] MEDS: SERTRALINE HCL 100 MG TABLET PO SCH (11:30)
--- NOTE | 2022-07-29 17:24 | Electrocardiogram Report ---
Test Reason : Blood Pressure : / mmHG Vent. Rate : 108 BPM Atrial Rate : 108 BPM P-R Int : 162 ms QRS Dur : 064 ms QT Int : 328 ms P-R-T Axes : 064 044 045 degrees QTc Int : 439 ms Sinus tachycardia Otherwise normal ECG When compared with ECG of 29-JUL-2021 20:49, Premature ventricular complexes are no longer Present Confirmed by Vitor Rudolph ([id number]) on 07/29/2022 5:24:05 PM Referred By: Alise Nj Confirmed By:Vitor Rudolph
[2022-07-29] MEDS: HYDROXYCHLOROQUINE SULFATE 200 MG TAB PO SCH (21:05)
[2022-07-30] MEDS: PIPERACILLIN/TAZOBACTAM 4.5 GM in DEXTROSE 5% 100 ML IV SCH ×3 (03:17→18:51)
[2022-07-30 07:20] LABS: Basophils # (auto) 0.02 K/uL (0-0.2); Basophils % (auto) 0.1 %; Eosinophils # (auto) 0.23 K/uL (0-0.50); Eosinophils % (auto) 1.5 %; Hemoglobin 10.1 g/dl (12.0-16.0); Immature Granulocytes # (auto) 0.08 K/uL (0.01-0.20); Immature Granulocytes % (auto) 0.5 %; Lymphocytes # (auto) 2.25 K/uL (1.2-3.4); Lymphocytes % (auto) 14.9 %; Mean Corpuscular Hgb Conc 33.7 g/dL (32.0-36.0); Mean Corpuscular Volume 86.2 fL (80.0-100.0); Monocytes # (auto) 1.27 K/uL (0.11-0.59); Monocytes % (auto) 8.4 %; Neutrophils # (auto) 11.22 K/uL (1.40-6.50); Neutrophils % (auto) 74.6 %; Platelet Count 322 K/uL (130-400); RDW Coefficient of Variation 14.1 % (11.5-14.5); Red Blood Count 3.48 M/uL (4.20-5.40); White Blood Count 15.07 K/ul (4.8-10.8)
--- NOTE | 2022-07-30 08:03 | Gynecologic Progress Note ---
Date of Service July 30, 2022 Assessment & Plan (1) Vaginal cuff cellulitis: Plan: Her white blood cell count is improved today to 15 she feels much better however I remain concerned for the formation of an abscess so would like to continue antibiotics today the plan is to repeat a CT scan on Sunday to ensure no abscess or collection formation if that is negative for any concerning findings and she continues to improve with plan discharge for Sunday after results are back I suspect if this was an abscess she would be sicker however there was significant inflammation in the pelvis and terminal ileum area I think we still need to remain cautious with her course at this time discussed again the diagnosis of Cellulitis provided emotional support and reassurance Admission and Anticipated Discharge Date Admission Date: July 28, 2022 Subjective Day 2 of hospitalization patient continues on Zosyn she states she feels clinically much better she does have a flushing feeling at times however she does not feel feverish and her temperature has been normal and she has almost no pain at all in the leg groin and pelvic pain has disappeared she is eating recently passing flatus had a bowel movement and voiding well she has no significant vaginal discharge Results & Data Vital Signs (Past 12 Hours) Vital Signs Temp Pulse Resp BP BP Pulse Ox O2 Del Method 07/30/22 07:30 98.2 F 90 14 109/73 95 Room Air 07/29/22 23:21 98.4 F 89 16 109/72 98 Room Air 07/29/22 20:30 99.0 F 92 H 18 123/80 97 Room Air PG Care Time/CCT Total # of Minutes Spent Total Time Spent with Patient: Total time spent is greater than 50% in coordination of care (as documented) at patient's floor/unit and/or counseling patient: Coding Level of Care Code 37186 Post Operative Follow-Up Diagnoses Vaginal cuff cellulitis N76.0
[2022-07-30] MEDS: SERTRALINE HCL 100 MG TABLET PO SCH (11:05)
[2022-07-30] MEDS: ACETAMINOPHEN 325 MG TAB PO PRN (14:43)
[2022-07-30] MEDS: HYDROXYCHLOROQUINE SULFATE 200 MG TAB PO SCH (21:41)
[2022-07-31] MEDS: PIPERACILLIN/TAZOBACTAM 4.5 GM in DEXTROSE 5% 100 ML IV SCH ×2 (02:51→11:28)
[2022-07-31 07:17] LABS: Basophils # (auto) 0.02 K/uL (0-0.2); Basophils % (auto) 0.2 %; Eosinophils # (auto) 0.32 K/uL (0-0.50); Eosinophils % (auto) 2.8 %; Hematocrit (blood only) 30.2 % (37.0-47.0); Hemoglobin 10.1 g/dl (12.0-16.0); Immature Granulocytes # (auto) 0.04 K/uL (0.01-0.20); Immature Granulocytes % (auto) 0.3 %; Lymphocytes # (auto) 2.82 K/uL (1.2-3.4); Lymphocytes % (auto) 24.6 %; Mean Corpuscular Hemoglobin 28.5 pg (25.0-34.0); Mean Corpuscular Hgb Conc 33.4 g/dL (32.0-36.0); Mean Corpuscular Volume 85.3 fL (80.0-100.0); Mean Platelet Volume 9.9 fL (9.4-12.4); Monocytes # (auto) 0.78 K/uL (0.11-0.59); Monocytes % (auto) 6.8 %; Neutrophils # (auto) 7.48 K/uL (1.40-6.50); Neutrophils % (auto) 65.3 %; Platelet Count 357 K/uL (130-400); RDW Coefficient of Variation 13.9 % (11.5-14.5); RDW Standard Deviation 43.6 fL (36.4-46.3); Red Blood Count 3.54 M/uL (4.20-5.40); White Blood Count 11.46 K/ul (4.8-10.8)
--- NOTE | 2022-07-31 07:42 | Gynecologic Progress Note ---
Date of Service July 31, 2022 Assessment & Plan Admission and Anticipated Discharge Date Admission Date: July 28, 2022 Subjective Patient is feeling much better today is minimal pain and there is no real vag inal discharge of note no extremity pain she feels well her appetite is good her temperature is normal and her white blood cell count is down to 11 today to be conservative we will get a repeat CT scan just to confirm again no collection or drainable abscess and if this is normal I will discharge her home on Augmentin and Flagyl and she will follow-up in the office Results & Data Vital Signs (Past 12 Hours) Vital Signs Temp Pulse Resp BP O2 Del Method 07/31/22 00:22 98.1 F 79 16 119/83 Room Air PG Care Time/CCT Total # of Minutes Spent Total Time Spent with Patient: Total time spent is greater than 50% in coordination of care (as documented) at patient's floor/unit and/or counseling patient: Coding Level of Care Code 59309 Post Operative Follow-Up Diagnoses
[2022-07-31] MEDS ORDERED: OPTIRAY 320 100ml IV ONE (10:02)
--- NOTE | 2022-07-31 11:13 | CT Scan Report ---
CT OF THE PELVIS WITH AND WITHOUT CONTRAST CLINICAL HISTORY: Pelvic cellulitis, post laparoscopic hysterectomy on July 21, 2022. COMPARISON STUDY: CT of the abdomen and pelvis April 27, 2022. CT of the abdomen and pelvis July 28, 2022. TECHNIQUE: Axial images of the pelvis were obtained before and after intravenous administration of Op tiray 320 IV. Sagittal and coronal reconstructions were viewed. Automated exposure control was utiliz ed for the study. A dose lowering technique was utilized adhering to the principles of ALARA. FINDINGS: No extraluminal gas within the pelvis is noted. The uterus is surgically absent. Note is ma de of a 7.1 x 2.1 cm operative bed pocket of fluid, superior to the vaginal cuff. This is slightly mo re well-defined than on prior exam. Peripheral enhancement has slightly increased. No gas within this collection is present. No additional collections within the pelvis are noted. Pelvic inflammation pe rsists and is similar to CT of July 28, 2022. Note is again made of wall thickening of the sigmoid co tae and multiple ileal loops, similar to prior exam. Mild wall thickening of the appendix is unchange d. Bladder wall thickening with adjacent stranding is similar to prior CT. Presacral/perirectal stran ding is unchanged. Major vasculature is grossly patent. IMPRESSION: 1. Persistent pelvic inflammation status post hysterectomy. This could be postsurgical or infectious. Inflammation is similar to CT of July 28, 2022. 2. Operative bed pocket of fluid, superior to the vaginal cuff, measuring 7.1 x 2.1 cm which is sligh tly more defined than on prior exam with peripheral enhancement. This is nonspecific in the postopera tive setting and could reflect a resolving hematoma or seroma. However, sterility cannot be assessed by CT and a developing abscess could appear similar. 3. No change in wall thickening of the sigmoid colon, multiple ileal loops and the appendix which is likely secondary to the pelvic inflammation. 4. Persistent bladder wall thickening with adjacent stranding. This is also nonspecific and could be correlated with urinalysis. ACT 112: Negative or not required by law. Electronically signed by: Bowen Conway M.D. 07/31/2022 11:12 AM
[2022-07-31] MEDS: SERTRALINE HCL 100 MG TABLET PO SCH (11:29)
--- NOTE | 2022-07-31 12:19 | Gynecologic Progress Note ---
Date of Service July 31, 2022 Assessment & Plan (1) Vaginal cuff cellulitis: Plan: Clinically the patient has continued to improve substantially there is no temperature she really has no pain she has no abnormal discharge she feels well she has some typical discomfort considering she had a hysterectomy within [address] scan is reviewed today does show a fluid collection most likely hematoma it is not consistent with an abscess of course this is not possible to 100% rule out but I did discuss with radiologist Dr. Conway and it does look more likely hematoma the patient's white blood cell count has improved as well to 11 my plan is to discharge her home on Augmentin and Flagyl she will be seen in the office in 2 days by myself she will contact us any sooner with issues. The hematoma is modest in size at best this results were reviewed with the patient Admission and Anticipated Discharge Date Admission Date: July 28, 2022 Results & Data Vital Signs (Past 12 Hours) Vital Signs Temp Pulse Resp BP Pulse Ox O2 Del Method 07/31/22 08:25 98.1 F 85 18 106/70 97 Room Air 07/31/22 00:22 98.1 F 79 16 119/83 Room Air PG Care Time/CCT Total # of Minutes Spent Total Time Spent with Patient: Total time spent is greater than 50% in coordination of care (as documented) at patient's floor/unit and/or counseling patient: Coding Level of Care Code 09290 Post Operative Follow-Up Diagnoses Vaginal cuff cellulitis N76.0
--- NOTE | 2022-08-02 07:36 | Discharge Summary ---
Date of Service August 02, 2022 Admission HPI Per Admitting Provider 51yo presented to ER today with fever, nausea, aching joints in pelvis. She recently underwent laparoscopic hysterectomy with robotic assist, 07/21/[address] Nj. She had been feeling well until this morning, when she woke up at approximately 5am with these symptoms. Had a temperature of 101.2 at home today. Took Tylenol once at noon. Vomited once, on arrival to ER. Prior to today, had been eating/drinking normally. Some constipation, but had a bowel movement on Sunday. Urinating normally. Discharge Data Consultations 07/28/22 21:20 ED Decision to Admit Stat Hospital Course (1) Vaginal cuff cellulitis: Clinically the patient has continued to improve substantially there is no temperature she really has no pain she has no abnormal discharge she feels well she has some typical discomfort considering she had a hysterectomy within [address] scan is reviewed today does show a fluid collection most likely hematoma it is not consistent with an abscess of course this is not possible to 100% rule out but I did discuss with radiologist Dr. Conway and it does look more likely hematoma the patient's white blood cell count has improved as well to 11 my plan is to discharge her home on Augmentin and Flagyl she will be seen in the office in 2 days by myself she will contact us any sooner with issues. The hematoma is modest in size at best this results were reviewed with the patient Coding Level of Care Code None Diagnoses Vaginal cuff cellulitis N76.0
== END 2022-07-31 13:15 | disposition home or self-care (01) | DRG 863 ==
LOC: ED 17:40 → 4E2 21:31
DX: Z79.1 Long term (current) use of non-steroidal anti-inflammatories (NSAID); Z79.899 Other long term (current) drug therapy; G43.909 Migraine, unspecified, not intractable, without status migrainosus; K21.9 Gastro-esophageal reflux disease without esophagitis; N73.2 Unspecified parametritis and pelvic cellulitis; Z20.822 Contact with and (suspected) exposure to COVID-19; Z90.710 Acquired absence of both cervix and uterus; E87.1 Hypo-osmolality and hyponatremia; Y83.6 Removal of other organ (partial) (total) as the cause of abnormal reaction of the patient, or of later complication, without mention of misadventure at the time of the procedure; I10 Essential (primary) hypertension; N99.840 Postprocedural hematoma of a genitourinary system organ or structure following a genitourinary system procedure; R11.2 Nausea with vomiting, unspecified; T81.43XA Infection following a procedure, organ and space surgical site, initial encounter; K59.00 Constipation, unspecified

== ENCOUNTER 2024-04-10 15:16 | Observation (INO) ==
--- NOTE | 2024-04-10 15:48 | XRay Report ---
XR chest 1V portable CLINICAL HISTORY: Chest pain, nonspecific COMPARISON STUDY: 04/06/2024 FINDINGS: Heart size and pulmonary vasculature are normal. No effusion, consolidation, or pneumothora x. IMPRESSION: No acute findings. ACT 112: Negative or not required by law. Electronically signed by: Baljeet Ortega M.D. 04/10/2024 3:47 PM
[2024-04-10 15:50] LABS: Basophils # (auto) 0.07 K/uL (0.00-0.20); Basophils % (auto) 0.7 %; Eosinophils # (auto) 0.19 K/uL (0.00-0.50); Eosinophils % (auto) 1.9 %; Hematocrit (blood only) 38.3 % (37.0-47.0); Hemoglobin 12.2 g/dl (12.0-16.0); Immature Granulocytes # (auto) 0.03 K/uL (0.01-0.20); Immature Granulocytes % (auto) 0.3 %; Lymphocytes # (auto) 3.22 K/uL (1.20-3.40); Lymphocytes % (auto) 31.7 %; Mean Corpuscular Hemoglobin 27.4 pg (25.0-34.0); Mean Corpuscular Hgb Conc 31.9 g/dL (32.0-36.0); Mean Corpuscular Volume 85.9 fL (80.0-100.0); Mean Platelet Volume 9.8 fL (9.4-12.4); Monocytes # (auto) 0.85 K/uL (0.11-0.59); Monocytes % (auto) 8.4 %; Platelet Count 358 K/uL (130-400); RDW Coefficient of Variation 14.6 % (11.5-14.5); RDW Standard Deviation 45.1 fL (36.4-46.3); Red Blood Count 4.46 M/uL (4.20-5.40); White Blood Count 10.16 K/ul (4.8-10.8)
[2024-04-10] MEDS: ASPIRIN 81 MG CHEW PO STA (15:59)
[2024-04-10 16:06] LABS: Lipase 51 U/L (11-82)
[2024-04-10 16:12] LABS: Troponin I High Sensitivity < 2.3 pg/ml (0-14)
[2024-04-10] MEDS ORDERED: POLYETHYLENE (MIRALAX) 17 GM PACK PO PRN (16:13)
[2024-04-10] MEDS ORDERED: ACETAMINOPHEN 325 MG TAB PO PRN (16:13)
[2024-04-10] MEDS ORDERED: ALUMINUM/MAGNESIUM SUSP 30 ML UDC PO PRN (16:13)
[2024-04-10] MEDS ORDERED: ONDANSETRON INJ 2 MG/ML 2 ML VIAL IV PRN (16:13)
[2024-04-10 16:15] LABS: Partial Thromboplastin Time 28 Seconds (21-31); Prothrombin Time 10.5 Seconds (9.0-12.0)
--- NOTE | 2024-04-10 16:26 | History & Physical Report ---
Date of Service April 10, 2024 Assessment & Plan (1) Chest pain: (2) Gastritis and duodenitis: (3) Frequent PVCs: (4) Palpitations: Plan This is a 53 year old female with past medical history of GERD, dyslipidemia, panic attacks, RA who presented to the ED on 04/10 for chest pain. #Chest pain Unclear etiology, cardiac vs GI vs anxiety? CXR negative Troponin < 2.3, repeat in 6 hours to ensure neg x 2 CBC w/o leukocytosis, hgb WNL, BMP stable PT/INR stable Free T3/T4 negative 04/10. Iron panel 04/08 - Fe 33, transferrin sat 8%. Pt w hx of iron deficiency. PCP to arrange outpatient infusion Stress echo 08/26 -> negative for ischemia, appropriate BP response to exercise, no arrhythmia. Study terminated due to dyspnea & fatigue. Repeat Stress echo 04/11. Continuous monitoring on telemetry Added PPI, pt previous on but appears she switched to Pepcid, pt also on chronic NSAID use for arthralgias. Chronic conditions: Mental Health: sertralin, hydroxyzine prn Arthralgias: Sulindac & Gabapentin DVT prophylaxis: Lovenox Code: Full Case discussed w/ Dr. Workman at time of admission. History of Present Illness Primary Care Provider: Renetta Wright MD This is a 53 year old female with past medical history of GERD, dyslipidemia, panic attacks, RA who presented to the ED on 04/10 for chest pain. Patient was seen and examined this afternoon w/ at bedside. Patient reports that she has a history of PVC's and palpitations since ~2019. She reports she has had a stress test in the past for palpitations and has also been seen by cardiology. She reports that after she had a hysterectomy awhile back and then noticed her palpitations had improved after. For about the last 3 weeks patient has noticed an increase in palpitations along with chest pain. She reports that this past Sunday she was watching a movie and develop severe chest pain with radiation down her left arm and into her jaw. She reports when the episodes occur they can last up to an hour. She then came to the ER and had an unremarkable workup w/ recommendations to discharge home. She then saw her PCP earlier today who had recommended to arrange an iron infusion, thyroid work up, and chest CT. Presently, patient was without chest pain but noted that the pain was between her shoulder blades. She feels chest discomfort and a heaviness. She denies any current nausea or vomiting. She was nauseous earlier today and did have some vomiting over the weekend. She reports shortness of breath with exercise and states this has happened for years. she feels as if she is unable to take a deep breath. She denies any urinary complaints or abdominal pain. patient also reports that her father recently had bypass surgery with Dr. Cameron. She reports he had CAD that is genetic. She does not believe that finding out this information has led to an increase in her symptoms. While in the ED patient was given ASA. She had a CBC and BMP WNL. Her troponin was < 2.3. CXR was negative. Magnesium and CRP are pending. Allergies Allergy/AdvReac Type Severity Reaction Status Date / Time No Known Allergies Allergy Verified 04/10/24 07:22 Home Medications Medication Instructions Recorded Confirmed Type rizatriptan 10 mg tablet 10 mg PO UD PRN migraine headache 10/31/21 04/15/24 History hydroxyzine pamoate 25 mg capsule 25 mg PO DAILY PRN panic attack(s) 02/08/22 04/15/24 Rx #15 caps turmeric 400 mg capsule 400 mg PO QDL 07/10/22 04/15/24 History acetaminophen 500 mg tablet 500 - 1,000 mg PO Q6H PRN Pain 08/21/22 04/15/24 History (Tylenol Extra Strength) calcium 600 mg-D3 800 unit-mag11 1 tab PO QDL 09/13/23 04/15/24 History 50 vr-xcxe-ukcklf-fanny-s.borat tablet (Caltrate 600-D Plus Minerals) estradiol 0.5 mg tablet 0.5 mg PO QDL 09/13/23 04/15/24 History sertraline 100 mg tablet 100 mg PO QDL 90 days #90 tabs 02/01/24 04/15/24 Rx sulindac 150 mg tablet 150 mg PO BID #60 tabs 02/08/24 04/15/24 Rx gabapentin 300 mg capsule 300 mg PO HS 04/10/24 04/15/24 History pantoprazole 40 mg tablet,delayed 40 mg PO BID #60 tabs 04/11/24 04/15/24 Rx release cholecalciferol (vitamin D3) 25 25 mcg PO DAILY 04/15/24 04/15/24 History mcg (1,000 unit) capsule Past Med/Surg History Problem List (Updated 04/10/24 @ 23:37 by Jin Goldstein MD) Chest pain (Acute) History of rheumatoid arthritis Cervical disc herniation Gastritis and duodenitis Frequent PVCs Vitamin D deficiency (Acute) Migraine (Chronic) Abnormal brain MRI (Chronic) GERD (gastroesophageal reflux disease) (Acute) Cervical disc disease with myelopathy Depression with anxiety Palpitations (Acute) Migraine Positive SRAVAN (antinuclear antibody) Menopausal symptoms Lumbar radiculopathy (Chronic) Medical History Dyslipidemia Left ureteral stone Leukocytosis Uterine fibroid Pelvic pain History of COVID-19 09/14/2021, home test, pcr [facility], not hosp; cough, fever, runny nose, sinus pressure>resolved. Lumbar herniated disc History of kidney stones GERD (gastroesophageal reflux disease) History of panic attacks Surgical History History of hysterectomy pt has her ovaries Status post excision of lipoma off of right shoulder Status post cystoscopy with ureteral stent placement History of lithotripsy History of colonoscopy (06/09/14) Dr. Waldemar Driscoll, [facility], normal results, recheck 10 years History of esophagogastroduodenoscopy (EGD) History of wisdom tooth extraction Family History Father Prostate cancer Family history of diabetes mellitus Coronary heart disease Grandmother Hypothyroidism Breast cancer Daughter Hypothyroidism Aunt Hypothyroidism Grandmother (Paternal) Family history of diabetes mellitus Other No family history of adverse response to anesthesia Denies family history of Ovarian cancer Myocardial infarction Colorectal cancer Social History Smoking Status: Never smoker Tobacco Type: Cigarettes Second Hand Exposure: No; Do You Dip or Chew Tobacco: No; Hx Alcohol Use: Yes Alcohol type: other Alcohol Intake Frequency: Monthly or Less Hx Substance Use: No Preferred Language: Croatian Communication Ability: Effective Visual Impairment: Limited Hearing Ability: Normal Store Detective Required: No Beliefs That Will Affect Care: None marital status: Current Living Situation: Spouse and Family current occupational status: employed 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 Feels Safe at Home: Yes Childhood Exposure to Second-Hand Smoke: Yes Diet: regular caffeine: Yes during the past year weight has: remained stable Dental Care, Regularly: Yes Physical Activity Frequency: 1-2 Times per Week Seatbelt Use: always Sunscreen Use: Yes Assistive Devices: Glasses Physical Exam Constitutional: WD/WN, vitals as above Eyes: PERRL, conjunctivae normal, anicteric sclerae Respiratory: normal respiratory effort, lungs clear to auscultation Cardiovascular: RRR, no murmur, no edema negative tenderness over ribs b/l Gastrointestinal (Abdomen): normal bowel sounds, soft, nontender, no hepatosplenomegaly Musculoskeletal: negative tenderness to shoulder blades b/l Psychiatric: tearful, AxOX3 Results & Data Results & Data Vital Signs (Past 12 Hours) Vital Signs Temp Pulse Pulse Resp BP BP Pulse Ox 04/10/24 16:00 85 18 141/94 H 99 04/10/24 15:20 36.5 C 88 18 187/130 H 97 O2 Del Method 04/10/24 16:00 Room Air 04/10/24 15:20 Room Air Supervising Physician Co-Signing Physician Notes I personally saw and examined the patient. I independently reviewed the labs, EKG, imaging, problem list, medication list, past medical history and family history. I verified all yu points and agree with Katalina Perez PA-C with the following exceptions and/or additions: 53 year old female presents to the ER with chest pain. Associated occasional palpitations possible associated with PVCs on monitor but frequency of palpitations not matching amount of PVCs. Constant but changing in frequency chest pain. Not exertional. No change with eating. O/E HS RRR, no murmurs, Chest CTAB, Abdo SNT A/P Atypical chest pain - given new chest pain will complete stress echo although plan for discharge following this. D-dimer recently negative with the same pain therefore no need to repeat this. Discussed even though her panic attacks have manifested differently in the past this could still be related to anxiety. Discussed CRP and ESR measurements not particularly elevated and very non specific. Discussed trial of metoprolol for PVCs but will defer this to her outpatient providers. PG Care Time/CCT Total # of Minutes Spent Total Time Spent with Patient: Total time spent is greater than 50% in coordination of care (as documented) at patient's floor/unit and/or counseling patient: Coding Level of Care Code 27170 INT INP/OBS CARE 3/75MIN Diagnoses Chest pain R07.9 Chest pain type: unspecified Gastritis and duodenitis K29.90 Frequent PVCs I49.3 Palpitations R00.2 (1) Chest pain Chest pain type: unspecified Qualified Code(s): R07.9 - Chest pain, unspecified
--- NOTE | 2024-04-10 16:30 | Electrocardiogram Report ---
Test Reason : Blood Pressure : */* mmHG Vent. Rate : 81 BPM Atrial Rate : 81 BPM P-R Int : 188 ms QRS Dur : 72 ms QT Int : 362 ms P-R-T Axes : 63 26 46 degrees QTcB Int : 420 ms Normal sinus rhythm Left atrial enlargement Borderline ECG When compared with ECG of 06-Apr-2024 00:19, No significant change was found Confirmed by Dami Olivas ([id number]) on 04/10/2024 4:30:24 PM Referred By: REFERRED SELF Confirmed By: Dami Olivas
[2024-04-10 17:02] LABS: C Reactive Protein 2.85 mg/dl (0-0.5); Magnesium 1.9 mg/dl (1.7-2.4)
[2024-04-10] MEDS ORDERED: hydrOXYzine HCl 25 MG TAB PO PRN (18:30)
[2024-04-10] MEDS: SULINDAC 150 MG TAB PO SCH (21:24)
[2024-04-10] MEDS: ENOXAPARIN INJ 40 MG/0.4 ML SYR SQ SCH (21:24)
[2024-04-10] MEDS: GABAPENTIN 300 MG CAP PO SCH (21:24)
[2024-04-10] MEDS: OPTIRAY 320 125ml IV ONE (21:44)
[2024-04-10 23:16] VITALS: RESP 18
--- NOTE | 2024-04-10 23:37 | Emergency Department Note ---
History of Present Illness General Chief Complaint: Chest Pain Stated Complaint: CHEST PAIN Time Seen by Provider: 04/10/24 15:34 History of Present Illness Provider Complaint: chest pain Onset (ago): week(s) Onset (Weeks): 2 Duration: intermittent Onset: during rest Pain Location: left chest Pain Radiation: LUE and neck Severity: moderate Maximum Pain Intensity: 3 Current Pain Intensity: 0 Quality: + tightness Relieved By: + nothing Exacerbated By: + nothing Context: no recent illness, no recent surgery, no recent immobilization, no recent travel, no trauma/injury or no new medications Associated symptoms: + dyspnea and + palpitations; no nausea, no syncope, no fever, no cough or no leg swelling Related Data On Oral Contraceptives: Yes Home Medications Medication Instructions Recorded Confirmed Type rizatriptan 10 mg tablet 10 mg PO UD PRN migraine headache 10/31/21 04/10/24 History hydroxyzine pamoate 25 mg capsule 25 mg PO DAILY PRN panic attack(s) 02/08/22 04/10/24 Rx #15 caps turmeric 400 mg capsule 400 mg PO QDL 07/10/22 04/10/24 History acetaminophen 500 mg tablet 500 - 1,000 mg PO Q6H PRN Pain 08/21/22 04/10/24 History (Tylenol Extra Strength) calcium 600 mg-D3 800 unit-mag11 1 tab PO QDL 09/13/23 04/10/24 History 50 ou-mlut-wgdapo-fanny-s.borat tablet (Caltrate 600-D Plus Minerals) estradiol 0.5 mg tablet 0.5 mg PO QDL 09/13/23 04/10/24 History sertraline 100 mg tablet 100 mg PO QDL 90 days #90 tabs 02/01/24 04/10/24 Rx sulindac 150 mg tablet 150 mg PO BID #60 tabs 02/08/24 04/10/24 Rx cholecalciferol (vitamin D3) 50 50 mcg PO QDL 04/09/24 04/10/24 History mcg (2,000 unit) capsule gabapentin 300 mg capsule 300 mg PO HS 04/10/24 04/10/24 History Allergies Allergy/AdvReac Type Severity Reaction Status Date / Time No Known Allergies Allergy Verified 04/10/24 07:22 Past Med/Surg History Problem List (Updated 04/10/24 @ 23:37 by Jin Goldstein MD) Chest pain (Acute) History of rheumatoid arthritis Cervical disc herniation Gastritis and duodenitis Frequent PVCs Vitamin D deficiency (Acute) Migraine (Chronic) Abnormal brain MRI (Chronic) GERD (gastroesophageal reflux disease) (Acute) Cervical disc disease with myelopathy Depression with anxiety Palpitations (Acute) Migraine Positive SRAVAN (antinuclear antibody) Menopausal symptoms Lumbar radiculopathy (Chronic) Medical History Dyslipidemia Left ureteral stone Leukocytosis Uterine fibroid Pelvic pain History of COVID-19 09/14/2021, home test, pcr [facility], not hosp; cough, fever, runny nose, sinus pressure>resolved. Lumbar herniated disc History of kidney stones GERD (gastroesophageal reflux disease) History of panic attacks Surgical History History of hysterectomy pt has her ovaries Status post excision of lipoma off of right shoulder Status post cystoscopy with ureteral stent placement History of lithotripsy History of colonoscopy (06/09/14) Dr. Waldemar Driscoll, [facility], normal results, recheck 10 years History of esophagogastroduodenoscopy (EGD) History of wisdom tooth extraction Family History Father Prostate cancer Family history of diabetes mellitus Coronary heart disease Grandmother Hypothyroidism Breast cancer Daughter Hypothyroidism Aunt Hypothyroidism Grandmother (Paternal) Family history of diabetes mellitus Other No family history of adverse response to anesthesia Denies family history of Ovarian cancer Myocardial infarction Colorectal cancer Social History Smoking Status: Never smoker Tobacco Type: Cigarettes Second Hand Exposure: No; Do You Dip or Chew Tobacco: No; Hx Alcohol Use: Yes Alcohol type: other Alcohol Intake Frequency: Monthly or Less Hx Substance Use: No Preferred Language: Sinhala Communication Ability: Effective Visual Impairment: Limited Hearing Ability: Normal Senior Process Analyst Required: No Beliefs That Will Affect Care: None marital status: Current Living Situation: Spouse and Family current occupational status: employed 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 Other Information That Helps Us Care for You: No Feels Safe at Home: Yes Safety Concerns: Feels Safe At This Time Childhood Exposure to Second-Hand Smoke: Yes Diet: regular caffeine: Yes during the past year weight has: remained stable Dental Care, Regularly: Yes Physical Activity Frequency: 1-2 Times per Week Seatbelt Use: always Sunscreen Use: Yes Assistive Devices: Glasses Physical Exam Vital Signs Vital Signs - 24 hr 04/10/24 15:20 04/10/24 16:00 04/10/24 16:00 Temperature 36.5 C Temperature Source Temporal Artery Scan Pulse Rate 88 Pulse Rate [Apical] 85 Respiratory Rate 18 18 Respiratory Effort / Characteristics Non-Labored Spontaneous Non-Labored Spontaneous Respiratory Depth Normal Normal Respiratory Pattern Regular Blood Pressure 187/130 H Blood Pressure [Left Arm] 141/94 H Blood Pressure Mean 149 Blood Pressure Mean [Left Arm] 109 Pulse Oximetry 97 99 95 Oxygen Delivery Method Room Air Room Air Room Air Sepsis Recent Fever Within 48 Hours No Sepsis New/Unexplained Change in Mental Status No Sepsis Action Taken by Nursing No Action Required 04/10/24 16:00 Temperature Temperature Source Pulse Rate Pulse Rate [Apical] 85 Respiratory Rate 18 Respiratory Effort / Characteristics Non-Labored Spontaneous Respiratory Depth Normal Respiratory Pattern Regular Blood Pressure Blood Pressure [Left Arm] 141/94 H Blood Pressure Mean Blood Pressure Mean [Left Arm] 109 Pulse Oximetry 99 Oxygen Delivery Method Room Air Sepsis Recent Fever Within 48 Hours Sepsis New/Unexplained Change in Mental Status Sepsis Action Taken by Nursing Physical Exam GENERAL: oriented to person, place, and time. appears well-developed and well- nourished. HENT: Exam performed. - Head: Normocephalic and atraumatic. EYES: Conjunctivae and EOM are normal. Right eye exhibits no discharge. Left eye exhibits no discharge. No scleral icterus. NECK: Normal range of motion. Neck supple. No JVD present. CV: Normal rate, regular rhythm, normal heart sounds and intact distal pulses. There is no peripheral edema. Palpable radial pulses bue. PULM/CHEST: Effort normal and breath sounds normal. No respiratory distress. No stridor. no wheezes. no rales. ABD: The abdomen is soft. There is no tenderness. NEURO: Motor and sensation grossly intact. SKIN: Skin is warm and dry. He is not diaphoretic. PSYCH: normal mood and affect. Behavior is normal. Judgment and thought content normal. Course Course 153: The patient was evaluated in room C1. A complete history and physical exam was performed Administered Medications Enoxaparin Sodium (Enoxaparin Inj 40 Mg/0.4 Ml Syr) 40 mg SQ QPM MILKA Stop: 05/10/24 20:59 Last Admin: 04/10/24 21:24 Dose: 40 mg Documented By: EV Gabapentin (Gabapentin 300 Mg Cap) 300 mg PO HS MILKA Stop: 05/10/24 20:59 Last Admin: 04/10/24 21:24 Dose: 300 mg Documented By: EV Sulindac (Sulindac 150 Mg Tab) 150 mg PO BID MILKA Stop: 05/10/24 20:59 Last Admin: 04/10/24 21:24 Dose: 150 mg Documented By: DN Discontinued Medications Aspirin (Aspirin 81 Mg Chew) 324 mg PO NOW STA Stop: 04/10/24 15:42 Last Admin: 04/10/24 15:59 Dose: 324 mg Documented By: NEERAJ Ioversol (Optiray 320 125ml) 71 ml IV ONCE ONE Stop: 04/10/24 21:45 Last Admin: 04/10/24 21:44 Dose: 71 ml Documented By: KEVIN Medical Decision Making Laboratory Data Attestation: I reviewed the patient's lab results. 04/10/24 15:30 Labs: Lab Results 04/10/24 Range/Units 15:30 WBC 10.16 (4.8-10.8) K/ul RBC 4.46 (4.20-5.40) M/uL Hgb 12.2 (12.0-16.0) g/dl Hct 38.3 (37.0-47.0) % MCV 85.9 (80.0-100.0) fL MCH 27.4 (25.0-34.0) pg MCHC 31.9 L (32.0-36.0) g/dL RDW Std Deviation 45.1 (36.4-46.3) fL RDW Coeff of Po 14.6 H (11.5-14.5) % Plt Count 358 (130-400) K/uL MPV 9.8 (9.4-12.4) fL Immature Gran % (Auto) 0.3 % Neut % (Auto) 57.0 % Lymph % (Auto) 31.7 % [place] % (Auto) 8.4 % Eos % (Auto) 1.9 % Baso % (Auto) 0.7 % Neut # (Auto) 5.80 (1.40-6.50) K/uL Lymph # (Auto) 3.22 (1.20-3.40) K/uL [place] # (Auto) 0.85 H (0.11-0.59) K/uL Eos # (Auto) 0.19 (0.00-0.50) K/uL Baso # (Auto) 0.07 (0.00-0.20) K/uL Immature Gran # (Auto) 0.03 (0.01-0.20) K/uL PT 10.5 (9.0-12.0) Seconds INR 1.0 (0.9-1.1) APTT 28 (21-31) Seconds PTT Ratio 1.0 Magnesium 1.9 (1.7-2.4) mg/dl Troponin I High Sens < 2.3 (0-14) pg/ml C-Reactive Protein 2.85 H (0-0.5) mg/dl Lipase 51 (11-82) U/L Imaging Data Chest x-ray: Attestation: I personally reviewed and interpreted this imaging study as follows: My impression: Chest x-ray negative. Airway clear. No pneumothorax. No consolidation. No cardiomegaly or cephalization.. No free air under the diaphragm. No fractures of the skeletal structures. Radiologist's impression: Chest X-Ray 04/10/24 15:34 XR chest 1V portable CLINICAL HISTORY: Chest pain, nonspecific COMPARISON STUDY: 04/06/2024 FINDINGS: Heart size and pulmonary vasculature are normal. No effusion, consolidation, or pneumothorax. IMPRESSION: No acute findings. ACT 112: Negative or not required by law. Electronically signed by: Baljeet Ortega M.D. 04/10/2024 3:47 PM ECG Data Attestation: I personally reviewed and interpreted this ECG as follows: Indication: abdominal pain Rate (beats per minute): 81 Rhythm: normal sinus Findings: no ST depression, no ST elevation or no prolonged QT Additional Comments: QRS 72 MDM Narrative Cardiac monitoring: An order was placed for continuous cardiac monitoring. The monitor shows a rate of 80 with sinus rhythm interpreted by me Vital signs stable. Labs and imaging unremarkable. Patient will be admitted to the [facility] team. Impression & Plan Chest pain Discharge Plan Visit Data Chief Complaint: Chest Pain Stated Complaint: CHEST PAIN ED Provider: Jin Goldstein Discharge Problem: Chest pain Patient Disposition: Admitted As Inpatient Discharge Instructions Interventions: ED Discharge Assessment Last Done: 04/10/24 18:03 Discharge Problem: Chest pain Qualifiers: Chest pain type: unspecified Qualified Code(s): R07.9 - Chest pain, unspecified
--- NOTE | 2024-04-11 01:14 | CT Scan Report ---
Exam(s): CTA CHEST EXAM: CT Angiography Chest With Intravenous Contrast CLINICAL HISTORY: Reason for exam: Chest pain, r/o PE. TECHNIQUE: Axial computed tomographic angiography images of the chest with intravenous contrast. CTDI is 26 mGy and DLP is 852.48 mGy-cm. Automated exposure control was utilized for the study. A dose lowering technique was utilized adhering to the principles of ALARA. MIP reconstructed images were created and reviewed. COMPARISON: None FINDINGS: Pulmonary arteries: Unremarkable. No pulmonary embolus identified. Aorta: No acute findings. No aortic aneurysm or dissection. Lungs: Mild dependent atelectasis bilaterally. No focal consolidation. Pleural space: Unremarkable. No significant effusion. No pneumothorax. Heart: Unremarkable. No cardiomegaly. No significant pericardial effusion. No evidence of RV dysfunction. Mediastinum: Small hiatal hernia. Bones/joints: No acute fracture. No dislocation. Soft tissues: Unremarkable. Lymph nodes: Unremarkable. No enlarged lymph nodes. Spleen: Small splenules. IMPRESSION: 1. No pulmonary embolus identified. 2. No aortic aneurysm or dissection. 3. No acute pulmonary parenchymal abnormality identified. Electronically signed by: Zeinab Aguilar M.D. 04/11/24 01:13 AM
[2024-04-11 07:34] VITALS: O2SAT 94
[2024-04-11] MEDS: PANTOprazole 40 MG TAB PO SCH (08:47)
[2024-04-11 11:23] VITALS: BP 123/79; TEMP 98.1
--- NOTE | 2024-04-11 11:46 | Discharge Summary ---
Discharge Summary Date of Service April 11, 2024 Principal Dx & Hospital Course #1 = Principal Diagnosis (1) Chest pain: (2) Gastritis and duodenitis: (3) Frequent PVCs: (4) Palpitations: Plan This is a 53 year old female with past medical history of GERD, dyslipidemia, panic attacks, RA who presented to the ED on 04/10 for chest pain. #Chest pain Unclear etiology, cardiac vs GI vs anxiety vs autoimmune condition. CXR negative. Chest CTA negative for PE Troponin < 2.3, repeat also negative at 5.4 CBC stable, BMP stable, PT/INR stable Free T3/T4 negative 04/10. Iron panel 04/08 - Fe 33, transferrin sat 8%. Pt w hx of iron deficiency. PCP to arrange outpatient infusion Stress echo 04/11: negative for ischemia Discussed echo results w/ Dr. Olivas 04/11 --> possibility of esophageal spasm. Pantoprazole 40mg BID on discharge, follow up w/ GI If symptoms are not relieved by PPI consider short course of prednisone in the event this is autoimmune related given elevated CRP. (2.85) Chronic conditions: Mental Health: Sertraline, hydroxyzine prn Arthralgias: Sulindac & Gabapentin Patient discharged home 04/11 Admission HPI Per Admitting Provider This is a 53 year old female with past medical history of GERD, dyslipidemia, panic attacks, RA who presented to the ED on 04/10 for chest pain. Patient was seen and examined this afternoon w/ at bedside. Patient reports that she has a history of PVC's and palpitations since ~2019. She reports she has had a stress test in the past for palpitations and has also been seen by cardiology. She reports that after she had a hysterectomy awhile back and then noticed her palpitations had improved after. For about the last 3 weeks patient has noticed an increase in palpitations along with chest pain. She reports that this past Sunday she was watching a movie and develop severe chest pain with radiation down her left arm and into her jaw. She reports when the episodes occur they can last up to an hour. She then came to the ER and had an unremarkable workup w/ recommendations to discharge home. She then saw her PCP earlier today who had recommended to arrange an iron infusion, thyroid work up, and chest CT. Presently, patient was without chest pain but noted that the pain was between her shoulder blades. She feels chest discomfort and a heaviness. She denies any current nausea or vomiting. She was nauseous earlier today and did have some vomiting over the weekend. She reports shortness of breath with exercise and states this has happened for years. she feels as if she is unable to take a deep breath. She denies any urinary complaints or abdominal pain. patient also reports that her father recently had bypass surgery with Dr. Cameron. She reports he had CAD that is genetic. She does not believe that finding out this information has led to an increase in her symptoms. While in the ED patient was given ASA. She had a CBC and BMP WNL. Her troponin was < 2.3. CXR was negative. Magnesium and CRP are pending. Discharge Exam Constitutional WD/WN, vitals as above Eyes PERRL, conjunctivae normal, anicteric sclerae Respiratory breathing unlabored Cardiovascular well perfused Musculoskeletal moves all extremities Psychiatric A+Ox3, euthymic affect Discharge Plan Discharge Items Patient Disposition: Home - Self-Care Reason For Visit: CHEST PAIN Discharge Diagnosis: Chest pain, Esophageal spasm Activity: Resume your previous activity Non-emergency contact: Primary Care Provider Call non-emergency contact if: you have any medication questions and your symptoms worsen Follow-up/Referrals: Adair Tinsley DO [Physician] - Renetta Wright MD [Primary Care Provider] - 04/18/24 11:00 am Diet: Regular Addtl Attending Provider Instructions: Mrs. Smith, You were recently hospitalized for chest pain. You underwent a stress echo that was negative for ischemia. The receptionist telephone operator did discuss that you may be experiencing esophageal spasms. Please see recommendations below regarding your discharge. -Please take Pantoprazole 40mg twice daily. - Your first dose at home will be this evening 04/11 -Please resume the remainder of your medications as previously prescribed -Please follow up with your PCP within 1-2 weeks of discharge -You have been referred back to GI for a further workup. If you do not hear from their office by 04/15 please contact their office for an appointment. -Please also follow up with rheumatology in the event that this is related to an autoimmune disease. If you develop any worsening chest pain, shortness of breath, fever, chills please report back to the ED for further care. Sincerely, Katalina Perez PA-C Pending Studies at Discharge: No Stand-Alone Forms: My [facility], Smoking Cessation Medications and DC Order Prescriptions: New pantoprazole 40 mg tablet,delayed release (DR/EC) 40 mg PO BID Qty: 60 0RF Continued hydroxyzine pamoate 25 mg capsule 25 mg PO DAILY PRN (Reason: panic attack(s)) Qty: 15 0RF sertraline 100 mg tablet 100 mg PO QDL 90 Days Qty: 90 4RF sulindac 150 mg tablet 150 mg PO BID Qty: 60 2RF estradiol 0.5 mg tablet 0.5 mg PO QDL Rx Instructions: off 5 days; repeat cycle Caltrate 600-D Plus Minerals 600 mg calcium- 800 unit-50 mg tablet 1 tab PO QDL cholecalciferol (vitamin D3) 50 mcg (2,000 unit) capsule 50 mcg PO QDL turmeric 400 mg Capsule 400 mg PO QDL rizatriptan 10 mg tablet 10 mg PO UD PRN (Reason: migraine headache) Rx Instructions: MAY REPEAT AFTER 2 HOURS OF FIRST DOSE acetaminophen [Tylenol Extra Strength] 500 mg Tablet 500 - 1,000 mg PO Q6H PRN (Reason: Pain) gabapentin 300 mg capsule 300 mg PO HS Discharge Orders: Discharge Order (Routine); Ordered 04/11/24 Ordered By: Katalina Perez Admission Data Admit Date/Time: 04/10/24 16:13 Attending Provider: Joe Hawkins Admit Provider: Quang Workman Primary Care Provider: Renetta Wright Other Providers: Quang Workman Other Interventions: Discharge Summary Assessment (RN) Last Done: 04/11/24 11:49 Hospital Stay Data Consultations 04/10/24 15:40 ED Decision to Admit Stat Diagnostic Imagining Performed 04/10/24 21:07 CT angio chest PE protocol Stat Pending Results Patient Have Any Pending Studies at Discharge: No Discharge Instructions Given to Patient (Per Discharging Provider) Mrs. Smith, You were recently hospitalized for chest pain. You underwent a stress echo that was negative for ischemia. The receptionist telephone operator did discuss that you may be experiencing esophageal spasms. Please see recommendations below regarding your discharge. -Please take Pantoprazole 40mg twice daily. - Your first dose at home will be this evening 04/11 -Please resume the remainder of your medications as previously prescribed -Please follow up with your PCP within 1-2 weeks of discharge -You have been referred back to GI for a further workup. If you do not hear from their office by 04/15 please contact their office for an appointment. -Please also follow up with rheumatology in the event that this is related to an autoimmune disease. If you develop any worsening chest pain, shortness of breath, fever, chills please report back to the ED for further care. Sincerely, Katalina Perez PA-C Total Time Total Time Spent Total Time Spent (In Minutes): 50 Total Time Includes: Examination of the Patient, Discharge Planning, Medication Reconciliation and Communication With Other Providers Coding Level of Care Code 89384 INP/OBS DISCH >30 MIN Diagnoses Chest pain R07.9 Chest pain type: unspecified Gastritis and duodenitis K29.90 Frequent PVCs I49.3 Palpitations R00.2
[2024-04-11] MEDS: SERTRALINE HCL 100 MG TABLET PO SCH (11:48)
[2024-04-11 11:50] VITALS: PULSE 77
--- NOTE | 2024-04-11 12:47 | XCELERA ---
[id number]
== END 2024-04-11 12:03 | disposition home or self-care (01) | DRG 313 ==
LOC: ED 15:16 → INTOOBSV 16:13 → 2N 16:13 → SUATTDRO 16:13 → 2N 18:03
DX: K29.80 Duodenitis without bleeding; K29.70 Gastritis, unspecified, without bleeding; I49.3 Ventricular premature depolarization; D64.9 Anemia, unspecified; E78.5 Hyperlipidemia, unspecified; Z79.899 Other long term (current) drug therapy; K21.9 Gastro-esophageal reflux disease without esophagitis; Z51.81 Encounter for therapeutic drug level monitoring; R53.83 Other fatigue; R07.89 Other chest pain; M06.9 Rheumatoid arthritis, unspecified; R00.2 Palpitations

== ENCOUNTER 2024-04-30 15:52 | Inpatient (IN) ==
[2024-04-30] MEDS: SODIUM CHLORIDE 0.9% 1,000 ML IV ONE (16:10)
--- NOTE | 2024-04-30 16:20 | Emergency Department Note ---
Impression & Plan Hydronephrosis, Leukocytosis, Renal colic ED Provider Note NAME: EVER CONRAD AGE: 53 SEX: F : 1970 ARRIVES VIA: Walk-In INFORMANT: Patient ED PROVIDER(S): Frank Vera DO CHIEF COMPLAINT: Abdominal pain HPI: Patient is a 53-year-old female with a past medical history of rheumatoid arthritis, migraines, palpitations, since GERD who presents to the ER for right lower quadrant abdominal pain which radiates to the right flank. This started earlier today when she was having surgery by Dr. Arthur on her Achilles. Pain started while she was lying flat on the table. It gradually got worse. She consequently came in. She admits to nausea but no vomiting. Denies any headache or change in vision. No chest pain or shortness of breath. She does have some dysuria and urgency that started earlier today. No other exacerbating or remitting factors. Has a history of kidney stones and notes that this feels similar. ADDITIONAL HISTORY OBTAINED: Per HPI Chronic Medical/Social Conditions Affecting Care: Per HPI PAST MEDICAL HISTORY:See Below PAST SURGICAL HISTORY:See Below FAMILY HISTORY:See Below SOCIAL HISTORY:See Below HOME MEDICATIONS:See Below ALLERGIES:See Below VITALS:See Below PHYSICAL EXAMINATION: GENERAL: Sitting up in bed, alert, well appearing, well nourished, no distress, non-toxic EYE EXAM: normal conjunctiva. OROPHARYNX: no exudate, no erythema, lips, buccal mucosa, and tongue normal and mucous membranes are moist NECK: supple, no nuchal rigidity, no adenopathy, non-tender LUNGS: Clear to auscultation. Normal chest wall mechanics HEART: no murmurs, S1 normal and S2 normal ABDOMEN: abdomen soft, TTP in right lower abd, normo-active bowel sounds, no masses, no rebound or guarding. UPPER EXTREMITIES: upper extremities are grossly normal. LOWER EXTREMITIES: No pitting edema. NEURO EXAM: Normal sensorium, cranial nerves II-XII grossly intact, normal speech, no gross weakness of arms, no gross weakness of legs. MEDICAL DECISION MAKING: Patient is a 53-year-old female who presents ER for above-stated complaint. IV was established and blood work was obtained. Labs show mild leukocytosis of 14,000. No significant anemia. BMP along with LFTs bilirubin and lipase is unremarkable. UA was clean. CT showed a distal right ureteral stone with hydronephrosis. There is no signs of infection. Patient was given multiple rounds of morphine and became hypoxic. She was updated bedside. Discussed case with hospitalist for further evaluation management treatment. Consults/Care Managements Discussions: Per MDM Triage Nursing notes reviewed. Limited review of prior medical records performed Vital Signs: reviewed and remarkable for no significant abnormalities Differential diagnosis: Differential diagnoses includes but is not limited to gastritis, peptic ulcer disease, GERD, gallbladder disease, pancreatitis, small bowel obstruction, appendicitis, diverticulitis, hernia, urinary tract infection, torsion, /ectopic (if female), perforation, trauma, infectious. ER treatment provided: See below Diagnostics interpreted by me include EKG and cardiac monitoring as listed below: -Cardiac Monitoring: An order was placed for continuous cardiac monitoring. The monitor shows a rate of 95 with sinus rhythm. -ECG: [none] -Laboratory studies:Interpreted by me as stated above in MDM and shown below. Imaging studies: Xrays: As interpreted by me:none CTs show: CT abdomen pelvis per my pleurae interpretation shows hydronephrosis of the right kidney CT abdomen pelvis per radiologist described above Procedures:none Critical Care: None Past Med/Surg History Problem List (Updated 04/30/24 @ 21:43 by Frank Vera DO) Renal colic (Acute) Leukocytosis (Acute) Hydronephrosis (Acute) Right nephrolithiasis Hydronephrosis of right kidney Chest pain (Acute) History of rheumatoid arthritis Cervical disc herniation Gastritis and duodenitis Frequent PVCs Menopausal symptoms Positive SRAVAN (antinuclear antibody) Migraine Palpitations (Acute) Depression with anxiety Cervical disc disease with myelopathy GERD (gastroesophageal reflux disease) (Acute) Abnormal brain MRI (Chronic) Migraine (Chronic) Lumbar radiculopathy (Chronic) Vitamin D deficiency (Acute) Medical History (Updated 04/30/24 @ 21:43 by Frank Vera DO) Achilles tendon tear Left - reason for procedure 04/30/24 Tinnitus of both ears Migraines History of rheumatoid arthritis "[place] said it was, now seeing [facility] Dr Lazo and doesn't think it is RA." as per patient Cervical disc herniation No surgery - Chiropractor Care - Full ROM Palpitations x2 [facility] ER 04/06/24 or 04/10/24 - still has, not as bad - to see [facility] Cardiology 05/07/24 PVCs (premature ventricular contractions) To see [facility] Cardiology - Dr Cameron 05/07/24 Anemia Iron Infusions - [facility] History of chest pain x2 [facility] ER 04/06/24 or 04/10/24 - IP [facility] - cardio work up cleared - patient denies issues at this time Dyslipidemia Left ureteral stone Leukocytosis Uterine fibroid hx - pt denies at this time - S/p hysterectomy Pelvic pain hx - pt denies at this time - S/p hysterectomy History of COVID-19 09/14/2021, home test, pcr [facility], not hosp; cough, fever, runny nose, sinus pressure>resolved. Lumbar herniated disc History of kidney stones GERD (gastroesophageal reflux disease) History of panic attacks Surgical History History of hysterectomy pt has her ovaries Status post excision of lipoma off of right shoulder Status post cystoscopy with ureteral stent placement History of lithotripsy History of colonoscopy (2021) History of esophagogastroduodenoscopy (EGD) History of wisdom tooth extraction Family History Father Prostate cancer Family history of diabetes mellitus Coronary heart disease Grandmother Hypothyroidism Breast cancer Daughter Hypothyroidism Aunt Hypothyroidism Grandmother (Paternal) Family history of diabetes mellitus Other No family history of adverse response to anesthesia Denies family history of Ovarian cancer Myocardial infarction Colorectal cancer Social History Smoking Status: Never smoker Tobacco Type: Cigarettes packs per day: 0; Second Hand Exposure: No; Do You Dip or Chew Tobacco: No; Hx Alcohol Use: No Hx Substance Use: No Preferred Language: Portuguese Communication Ability: Effective Visual Impairment: Limited Hearing Ability: Normal Bag Machine Tender Required: No Beliefs That Will Affect Care: None marital status: Current Living Situation: Spouse current occupational status: employed 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 Feels Safe at Home: Yes Childhood Exposure to Second-Hand Smoke: Yes Diet: regular caffeine: Yes during the past year weight has: remained stable Dental Care, Regularly: Yes Physical Activity Frequency: 1-2 Times per Week Seatbelt Use: always Sunscreen Use: Yes Assistive Devices: Glasses Allergies Allergies Allergy/AdvReac Type Severity Reaction Status Date / Time No Known Allergies Allergy Verified 04/30/24 09:20 Home Meds Home Medications Medication Instructions Recorded Confirmed rizatriptan 10 mg tablet 10 mg PO UD PRN migraine headache 10/31/21 04/30/24 turmeric 400 mg capsule 400 mg PO QDL 07/10/22 04/30/24 acetaminophen 500 mg tablet 500 - 1,000 mg PO Q6H PRN Pain 08/21/22 04/30/24 (Tylenol Extra Strength) calcium 600 mg-D3 800 unit-mag11 1 tab PO QDL 09/13/23 04/30/24 50 gx-crzh-bqvrji-fanny-s.borat tablet (Caltrate 600-D Plus Minerals) gabapentin 300 mg capsule 300 mg PO HS 04/10/24 04/30/24 (Neurontin) cholecalciferol (vitamin D3) 25 25 mcg PO DAILY 04/15/24 04/30/24 mcg (1,000 unit) capsule sertraline 100 mg tablet (Zoloft) 100 mg PO QDL 04/23/24 04/30/24 Previous Rx's Medication Instructions Recorded hydroxyzine pamoate 25 mg capsule 25 mg PO DAILY PRN panic attack(s) 02/08/22 #15 caps sulindac 150 mg tablet 150 mg PO BID #60 tabs 02/08/24 dicyclomine 10 mg capsule 10 mg PO QID PRN Esophageal spasms 04/18/24 #14 caps pantoprazole 40 mg tablet,delayed 40 mg PO BID #90 tabs 04/24/24 release (Protonix) oxycodone 5 mg tablet 5 mg PO Q6H PRN pain #15 tabs 04/30/24 Results & Data (ED) Vital Signs Vital Signs - 24 hr 04/30/24 16:00 04/30/24 16:05 04/30/24 16:38 Temperature 36.6 C Temperature Source Temporal Artery Scan Pulse Rate 101 H 93 H Pulse Rate [Apical] Respiratory Rate 20 Respiratory Effort / Characteristics Non-Labored Spontaneous Respiratory Depth Normal Respiratory Pattern Regular Blood Pressure 186/94 H Blood Pressure [Left Arm] Blood Pressure Mean 124 Blood Pressure Mean [Left Arm] Blood Pressure Position Sitting Pulse Oximetry 99 97 Oxygen Delivery Method Room Air Room Air Oxygen Flow Rate Sepsis Recent Fever Within 48 Hours No Sepsis New/Unexplained Change in Mental Status N/A Sepsis Action Taken by Nursing No Action Required 04/30/24 17:00 04/30/24 18:16 04/30/24 20:12 Temperature Temperature Source Pulse Rate Pulse Rate [Apical] 85 83 87 Respiratory Rate 24 26 H 18 Respiratory Effort / Characteristics Non-Labored Spontaneous Non-Labored Spontaneous Respiratory Depth Normal Normal Respiratory Pattern Blood Pressure Blood Pressure [Left Arm] 160/105 H 186/109 H 173/96 H Blood Pressure Mean Blood Pressure Mean [Left Arm] 123 134 121 Blood Pressure Position Pulse Oximetry 96 100 100 Oxygen Delivery Method Room Air Nasal Cannula Nasal Cannula Oxygen Flow Rate 2 2 Sepsis Recent Fever Within 48 Hours Sepsis New/Unexplained Change in Mental Status Sepsis Action Taken by Nursing 04/30/24 20:53 Temperature Temperature Source Pulse Rate 98 H Pulse Rate [Apical] Respiratory Rate Respiratory Effort / Characteristics Respiratory Depth Respiratory Pattern Blood Pressure Blood Pressure [Left Arm] Blood Pressure Mean Blood Pressure Mean [Left Arm] Blood Pressure Position Pulse Oximetry Oxygen Delivery Method Oxygen Flow Rate Sepsis Recent Fever Within 48 Hours Sepsis New/Unexplained Change in Mental Status Sepsis Action Taken by Nursing Laboratory Data 04/30/24 16:09 04/30/24 16:09 Lab Results 04/30/24 04/30/24 Range/Units 16:09 16:14 WBC 14.43 H (4.8-10.8) K/ul RBC 4.59 (4.20-5.40) M/uL Hgb 12.8 (12.0-16.0) g/dl Hct 38.9 (37.0-47.0) % MCV 84.7 (80.0-100.0) fL MCH 27.9 (25.0-34.0) pg MCHC 32.9 (32.0-36.0) g/dL RDW Std Deviation 45.0 (36.4-46.3) fL RDW Coeff of Po 14.6 H (11.5-14.5) % Plt Count 368 (130-400) K/uL MPV 10.3 (9.4-12.4) fL Immature Gran % (Auto) 0.5 % Neut % (Auto) 85.9 % Lymph % (Auto) 8.5 % Lares % (Auto) 4.6 % Eos % (Auto) 0.1 % Baso % (Auto) 0.4 % Neut # (Auto) 12.40 H (1.40-6.50) K/uL Lymph # (Auto) 1.23 (1.20-3.40) K/uL Lares # (Auto) 0.66 H (0.11-0.59) K/uL Eos # (Auto) 0.01 (0.00-0.50) K/uL Baso # (Auto) 0.06 (0.00-0.20) K/uL Immature Gran # (Auto) 0.07 (0.01-0.20) K/uL Sodium 139 (136-145) mmol/L Potassium 3.5 (3.5-5.1) mmol/L Chloride 104 (98-107) mmol/L Carbon Dioxide 21 (21-32) mmol/L Anion Gap 14 H (3-11) BUN 16 (6-23) mg/dl Creatinine 1.02 (0.6-1.2) mg/dl Est Cr Clr Drug Dosing Not Reportable eGFR 65.38 BUN/Creatinine Ratio 15.7 (10-20) Glucose 134 H (70-99(Fasting)) mg/dl Calcium 10.0 (8.6-10.3) mg/dl Total Bilirubin 0.5 (0.2-1.0) mg/dl AST 34 (13-39) U/L ALT 30 (7-52) U/L Alkaline Phosphatase 95 (34-104) U/L Total Protein 7.6 (6.0-8.3) gm/dl Albumin 4.5 (3.4-5.0) gm/dl Globulin 3.1 (2.5-4.0) gm/dl Albumin/Globulin Ratio 1.5 (0.9-2) Lipase 21 (11-82) U/L Urine Color Yellow Urine Appearance Clear (Clear) Urine pH 6.5 (4.5-7.5) Ur Specific [place] 1.022 (1.000-1.030) Urine Protein Trace H (Negative) Urine Glucose (UA) Negative (Negative) Urine Ketones 1+ H (Negative) Urine Blood Negative (Negative) Urine Nitrite Negative (Negative) Urine Bilirubin Negative (Negative) Urine Urobilinogen Negative (Negative) Ur Leukocyte Esterase Negative (Negative) Urine WBC (Auto) 0-5 (0-5) /hpf Urine RBC (Auto) 3-5 H (0-2) /hpf U Hyaline Cast (Auto) 0-2 (0-2) /lpf U Epithel Cells (Auto) 6-10 H (0-2) /hpf Urine Bacteria (Auto) None Seen (None Seen) Administered Medications Discontinued Medications Sodium Chloride (Nss) 1,000 mls @ 999 mls/hr IV .Q1H1M ONE Stop: 04/30/24 17:05 Last Infusion: 04/30/24 17:30 Dose: Infused Documented By: Admin: 04/30/24 16:10 Dose: 999 mls/hr Documented By: SRL Morphine Sulfate (Morphine Sulfate 4 Mg/Ml 1 Ml Carp\\Vial) 4 mg IV NOW STA Stop: 04/30/24 16:52 Last Admin: 04/30/24 16:54 Dose: 4 mg Documented By: SHWETA Morphine Sulfate (Morphine Sulfate 4 Mg/Ml 1 Ml Carp\\Vial) 4 mg IV NOW STA Stop: 04/30/24 17:37 Last Admin: 04/30/24 17:39 Dose: 4 mg Documented By: SHWETA Morphine Sulfate (Morphine Sulfate 10 Mg/Ml Carp/Vial) 6 mg IV NOW STA Stop: 04/30/24 17:54 Last Admin: 04/30/24 18:15 Dose: 6 mg Documented By: SHWETA Ondansetron HCl (Ondansetron Inj 2 Mg/Ml 2 Ml Vial) 4 mg IV NOW STA Stop: 04/30/24 16:21 Last Admin: 04/30/24 16:29 Dose: 4 mg Documented By: SHWETA Imaging Data Radiologist's Impression: Abdomen/Pelvis CT 04/30/24 16:05 Clinical History: Abdominal pain Technique: Axial computed tomography images were obtained of the abdomen and pelvis without intravenous contrast. Comparison is made to the prior CT dated 08/21/2022 Findings: The liver is overall of normal size, attenuation, and contour with no sign of cirrhosis or significant fatty infiltration. No definite liver mass lesion is seen on this noncontrast study. The gallbladder appears unremarkable. No bile duct dilatation is noted. The spleen is of normal size. No focal splenic lesion is evident. The pancreas appears normal with no sign of acute or chronic pancreatitis and no mass lesion noted. The pancreatic duct is of normal caliber. The adrenal glands appear unremarkable. There is a 2 mm left renal calculus. There is mild to moderate severity right hydronephrosis and hydroureter, as well as right perinephric stranding. No definite renal mass lesion is identified. The aorta is of normal caliber. No abdominal adenopathy is seen. There is a small hiatal hernia. There is no sign of small bowel obstruction. The colon appears unremarkable. The appendix appears normal also. No free intraperitoneal fluid or air is identified. There is a 3.5 mm calculus obstructing the right ureterovesicular junction. The bladder is decompressed. The iliac arteries are of normal caliber. No pelvic adenopathy is noted. The uterus has been removed The lungs bases appear clear. No fracture is identified. No focal osseous lesion is seen Impression: 1. Right hydronephrosis due to a 3.5 mm calculus obstructing the right UVJ 2. Small left renal calculus 3. Small hiatal hernia ACT 112: Positive. There are findings on this exam that require communication between the performing entity and the patient following Patient Test Result Information Act ([place] ACT 112) guidelines. Electronically signed by Alejandro Sewell 04-30-2024 4:52 PM Discharge Plan Visit Data Chief Complaint: Flank Pain Stated Complaint: FLANK PAIN, KIDNEY STONE ED Provider: Frank Vera Discharge Problem: Hydronephrosis, Leukocytosis, Renal colic Forms Stand Alone Forms: [facility] [employer] Prescriptions Prescriptions: No Action hydroxyzine pamoate 25 mg capsule 25 mg PO DAILY PRN (Reason: panic attack(s)) Qty: 15 0RF pantoprazole [Protonix] 40 mg tablet,delayed release (DR/EC) 40 mg PO BID Qty: 90 3RF oxycodone 5 mg tablet 5 mg PO Q6H PRN (Reason: pain) Qty: 15 0RF dicyclomine 10 mg capsule 10 mg PO QID PRN (Reason: Esophageal spasms ) Qty: 14 0RF Patient Comments: "I haven't picked it up yet" sulindac 150 mg tablet 150 mg PO BID Qty: 60 2RF cholecalciferol (vitamin D3) 25 mcg (1,000 unit) capsule 25 mcg PO DAILY Caltrate 600-D Plus Minerals 600 mg calcium- 800 unit-50 mg tablet 1 tab PO QDL turmeric 400 mg Capsule 400 mg PO QDL rizatriptan 10 mg tablet 10 mg PO UD PRN (Reason: migraine headache) Rx Instructions: MAY REPEAT AFTER 2 HOURS OF FIRST DOSE acetaminophen [Tylenol Extra Strength] 500 mg Tablet 500 - 1,000 mg PO Q6H PRN (Reason: Pain) gabapentin [Neurontin] 300 mg capsule 300 mg PO HS sertraline [Zoloft] 100 mg tablet 100 mg PO QDL Referrals Referrals: Renetta Wright MD [Primary Care Provider] - Discharge Problem: Hydronephrosis Qualifiers: Hydronephrosis type: unspecified Qualified Code(s): N13.30 - Unspecified hydronephrosis Leukocytosis Qualifiers: Leukocytosis type: unspecified Qualified Code(s): D72.829 - Elevated white blood cell count, unspecified
[2024-04-30 16:27] LABS: Basophils # (auto) 0.06 K/uL (0.00-0.20); Basophils % (auto) 0.4 %; Eosinophils # (auto) 0.01 K/uL (0.00-0.50); Eosinophils % (auto) 0.1 %; Hematocrit (blood only) 38.9 % (37.0-47.0); Hemoglobin 12.8 g/dl (12.0-16.0); Immature Granulocytes # (auto) 0.07 K/uL (0.01-0.20); Immature Granulocytes % (auto) 0.5 %; Lymphocytes # (auto) 1.23 K/uL (1.20-3.40); Lymphocytes % (auto) 8.5 %; Mean Corpuscular Hemoglobin 27.9 pg (25.0-34.0); Mean Corpuscular Hgb Conc 32.9 g/dL (32.0-36.0); Mean Corpuscular Volume 84.7 fL (80.0-100.0); Mean Platelet Volume 10.3 fL (9.4-12.4); Monocytes # (auto) 0.66 K/uL (0.11-0.59); Monocytes % (auto) 4.6 %; Neutrophils % (auto) 85.9 %; Platelet Count 368 K/uL (130-400); RDW Coefficient of Variation 14.6 % (11.5-14.5); Red Blood Count 4.59 M/uL (4.20-5.40); White Blood Count 14.43 K/ul (4.8-10.8)
[2024-04-30] MEDS: ONDANSETRON INJ 2 MG/ML 2 ML VIAL IV STA (16:29)
--- NOTE | 2024-04-30 16:53 | CT Scan Report ---
Clinical History: Abdominal pain Technique: Axial computed tomography images were obtained of the abdomen and pelvis without intravenous contrast. Comparison is made to the prior CT dated 08/21/2022 Findings: The liver is overall of normal size, attenuation, and contour with no sign of cirrhosis or significant fatty infiltration. No definite liver mass lesion is seen on this noncontrast study. The gallbladder appears unremarkable. No bile duct dilatation is noted. The spleen is of normal size. No focal splenic lesion is evident. The pancreas appears normal with no sign of acute or chronic pancreatitis and no mass lesion noted. The pancreatic duct is of normal caliber. The adrenal glands appear unremarkable. There is a 2 mm left renal calculus. There is mild to moderate severity right hydronephrosis and hydroureter, as well as right perinephric stranding. No definite renal mass lesion is identified. The aorta is of normal caliber. No abdominal adenopathy is seen. There is a small hiatal hernia. There is no sign of small bowel obstruction. The colon appears unremarkable. The appendix appears normal also. No free intraperitoneal fluid or air is identified. There is a 3.5 mm calculus obstructing the right ureterovesicular junction. The bladder is decompressed. The iliac arteries are of normal caliber. No pelvic adenopathy is noted. The uterus has been removed The lungs bases appear clear. No fracture is identified. No focal osseous lesion is seen Impression: 1. Right hydronephrosis due to a 3.5 mm calculus obstructing the right UVJ 2. Small left renal calculus 3. Small hiatal hernia ACT 112: Positive. There are findings on this exam that require communication between the performing entity and the patient following Patient Test Result Information Act ([place] ACT 112) guidelines. Electronically signed by Alejandro Sewell 04-30-2024 4:52 PM
[2024-04-30] MEDS: MoRPHine SULFATE 4 MG/ML 1 ML CARP\\VIAL IV STA ×2 (16:54→17:39)
[2024-04-30 16:55] LABS: Alanine Aminotransferase 30 U/L (7-52); Albumin Globulin Ratio 1.5 (0.9-2); Albumin Level 4.5 gm/dl (3.4-5.0); Alkaline Phosphatase 95 U/L (34-104); Anion Gap 14 (3-11); Aspartate Aminotransferase 34 U/L (13-39); BUN Creatinine Ratio 15.7 (10-20); Bilirubin,Total 0.5 mg/dl (0.2-1.0); Blood Urea Nitrogen 16 mg/dl (6-23); Carbon Dioxide 21 mmol/L (21-32); Chloride 104 mmol/L (98-107); Globulin 3.1 gm/dl (2.5-4.0); Glucose 134 mg/dl (70-99(Fasting)); Lipase 21 U/L (11-82); Potassium 3.5 mmol/L (3.5-5.1); Sodium 139 mmol/L (136-145); Total Protein 7.6 gm/dl (6.0-8.3)
[2024-04-30 17:47] LABS: Appearance Urine Clear (Clear); Bacteria Urine Automated None Seen (None Seen); Bilirubin Urine Negative (Negative); Blood Urine Negative (Negative); Cast Urine Automated 0-2 /lpf (0-2); Color Urine Yellow; Glucose Urine UA Negative (Negative); Ketones Urine 1+ (Negative); Leukocyte Esterase Urine Negative (Negative); Nitrite Urine Negative (Negative); Protein Urine Trace (Negative); Specific Gravity Urine 1.022 (1.000-1.030); Urobilinogen Urine Negative (Negative); WBC Urine Automated 0-5 /hpf (0-5); pH Urine 6.5 (4.5-7.5)
[2024-04-30] MEDS: MoRPHine SULFATE 10 MG/ML CARP/VIAL IV STA (18:15)
--- NOTE | 2024-04-30 18:25 | History & Physical Report ---
Date of Service April 30, 2024 Assessment & Plan (1) Hydronephrosis of right kidney: (2) Right nephrolithiasis: (3) GERD (gastroesophageal reflux disease): (4) Depression with anxiety: Plan Nephrolithiasis | Right Hydronephrosis -CT A/P: Right hydronephrosis due to a 3.5 mm calculus obstructing the right UVJ -Significant RLQ pain with radiation to flank -Start tamsulosin 0.4mg daily. Strain all urine. -Ordered LR @ 100mL/h -Routine urology consult ordered, will make NPO at midnight while awaiting evaluation -Analgesia with Tylenol, Morphine PRN. Narcan ordered PRN for narcosis. Zofran PRN for nausea. -Monitor on telemetry, hypertensive in ED with BP reaching 186/109- likely secondary to pain -Would not treat elevated blood pressure at this time unless systolic >200 or diastolic >110, or if patient becomes symptomatic -Cr 1.02 on admission, repeat metabolic panel in a.m. -WBC 14k on admission, afebrile and UA negative for leukocyte esterase, nitrites. Repeat CBC in a.m., no indication for antibiotics at present. S/P Left Achilles Percutaneous Ultrasound Tenotomy -Ordered ice application TID GERD -Continue Protonix BID -Had episode of emesis earlier today, secondary to pain- will add Pepcid on admission Iron Deficiency Anemia -Hgb 12.8 on admission -Currently receiving outpatient iron infusions, next infusion scheduled for Sunday (05/02) Depression with anxiety: Sertraline, hydroxyzine prn Arthralgias: Sulindac & Gabapentin Admit to: med/tele VTE Prophylaxis: Low risk Diet: Regular, NPO at midnight Code Status: Full Code History of Present Illness Primary Care Provider: Renetta Wright MD Lauren Smith is a 53 year-old female who presents to the ED due right sided flank pain. Past medical history is significant for GERD, cervical disc disease, positive SRAVAN, lumbar radiculopathy. Patient underwent left Achilles percutaneous ultrasound tenotomy this morning, during the procedure patient began to experience RLQ pain- had to get up off of the surgical table and go to the bathroom, was able to complete the remainder of the procedure and was discharged home. However after going home, pain continued to increase and radiated to right flank- patient had prior renal stone and was concerned that this could be a kidney stone so she came to the ED for evaluation. Patient has had recent ED visit and admission for chest pain, fortunately had a negative cardiac stress test and is scheduled for outpatient GI follow up as there was concern this co uld be secondary to gastritis. At time of encounter, patient is resting comfortably in bed. Notes that the last dose of morphine finally provided pain relief. Denies current nausea, but had an episode of emesis due to pain earlier this afternoon. Notes that she previously had a left sided renal stone requiring lithotripsy. Notes some looser stool today but no diarrhea, denies blood in urine or abnormal urine color. ED Course: -CT A/P -CBC, CMP, UA Allergies Allergy/AdvReac Type Severity Reaction Status Date / Time No Known Allergies Allergy Verified 04/30/24 09:20 Home Medications Medication Instructions Recorded Confirmed Type rizatriptan 10 mg tablet 10 mg PO UD PRN migraine headache 10/31/21 04/30/24 History hydroxyzine pamoate 25 mg capsule 25 mg PO DAILY PRN panic attack(s) 02/08/22 04/30/24 Rx #15 caps turmeric 400 mg capsule 400 mg PO QDL 07/10/22 04/30/24 History acetaminophen 500 mg tablet 500 - 1,000 mg PO Q6H PRN Pain 08/21/22 04/30/24 History (Tylenol Extra Strength) calcium 600 mg-D3 800 unit-mag11 1 tab PO QDL 09/13/23 04/30/24 History 50 hx-iccr-nhzbnf-fanny-s.borat tablet (Caltrate 600-D Plus Minerals) sulindac 150 mg tablet 150 mg PO BID #60 tabs 02/08/24 04/30/24 Rx gabapentin 300 mg capsule 300 mg PO HS 04/10/24 04/30/24 History (Neurontin) cholecalciferol (vitamin D3) 25 25 mcg PO DAILY 04/15/24 04/30/24 History mcg (1,000 unit) capsule dicyclomine 10 mg capsule 10 mg PO QID PRN Esophageal spasms 04/18/24 04/30/24 Rx #14 caps sertraline 100 mg tablet (Zoloft) 100 mg PO QDL 04/23/24 04/30/24 History pantoprazole 40 mg tablet,delayed 40 mg PO BID #90 tabs 04/24/24 04/30/24 Rx release (Protonix) oxycodone 5 mg tablet 5 mg PO Q6H PRN pain #15 tabs 04/30/24 04/30/24 Rx Past Med/Surg History Problem List (Updated 04/30/24 @ 18:20 by Joyce Marquez, ) Right nephrolithiasis Hydronephrosis of right kidney Chest pain (Acute) History of rheumatoid arthritis Cervical disc herniation Gastritis and duodenitis Frequent PVCs Menopausal symptoms Positive SRAVAN (antinuclear antibody) Migraine Palpitations (Acute) Depression with anxiety Cervical disc disease with myelopathy GERD (gastroesophageal reflux disease) (Acute) Abnormal brain MRI (Chronic) Migraine (Chronic) Lumbar radiculopathy (Chronic) Vitamin D deficiency (Acute) Medical History (Updated 04/30/24 @ 18:20 by Joyce Marquez, ) Achilles tendon tear Left - reason for procedure 04/30/24 Tinnitus of both ears Migraines History of rheumatoid arthritis "[place] said it was, now [place] [facility] [place] and doesn't think it is RA." as per patient Cervical disc herniation No surgery - Chiropractor Care - Full ROM Palpitations x2 [facility] ER 04/06/24 or 04/10/24 - still has, not as bad - [place] [facility]24 PVCs (premature ventricular contractions) [place] [facility] [place] [place] Cameron 05/07/24 Anemia Iron Infusions - [facility] History of chest pain x2 [facility] ER 04/06/24 or 04/10/24 - IP [facility] - cardio work up cleared - patient denies issues at this time Dyslipidemia Left ureteral stone Leukocytosis Uterine fibroid hx - pt denies at this time - S/p hysterectomy Pelvic pain hx - pt denies at this time - S/p hysterectomy History of COVID-19 09/14/2021, home test, pcr [facility], not hosp; cough, fever, runny nose, sinus pressure>resolved. Lumbar herniated disc History of kidney stones GERD (gastroesophageal reflux disease) History of panic attacks Surgical History History of hysterectomy pt has her ovaries Status post excision of lipoma off of right shoulder Status post cystoscopy with ureteral stent placement History of lithotripsy History of colonoscopy (2021) History of esophagogastroduodenoscopy (EGD) History of wisdom tooth extraction Family History Father Prostate cancer Family history of diabetes mellitus Coronary heart disease Grandmother Hypothyroidism Breast cancer Daughter Hypothyroidism Aunt Hypothyroidism Grandmother (Paternal) Family history of diabetes mellitus Other No family history of adverse response to anesthesia Denies family history of Ovarian cancer Myocardial infarction Colorectal cancer Social History Smoking Status: Never smoker Tobacco Type: Cigarettes packs per day: 0; Second Hand Exposure: No; Do You Dip or Chew Tobacco: No; Hx Alcohol Use: No Hx Substance Use: No Preferred Language: [place] Helen[place] Communication Ability: Effective Visual Impairment: Limited Hearing Ability: Normal Manager Apple Required: No Beliefs That Will Affect Care: None marital status: Current Living Situation: Spouse current occupational status: employed 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 Feels Safe at Home: Yes Childhood Exposure to Second-Hand Smoke: Yes Diet: regular caffeine: Yes during the past year weight has: remained stable Dental Care, Regularly: Yes Physical Activity Frequency: 1-2 Times per Week Seatbelt Use: always Sunscreen Use: Yes Assistive Devices: Glasses Review of Systems Review of Systems: As per above Physical Exam Constitutional: WD/WN, vitals as above Eyes: + anicteric sclerae; no conjunctival abn ormality ENMT: Ears: no external ear abnormality Nose: no external nose abnormality Moist mucous membranes Respiratory: normal respiratory effort, lungs clear to auscultation Cardiovascular: Rate/Rhythm: regular rate and regular rhythm Extremities: n o edema Gastrointestinal (Abdomen): Inspection/Auscultation: abdomen normal to inspection; abdomen not distended Percussion/Palpation: + abdomen tender (RLQ tenderness), + guarding and abdomen soft Musculoskeletal: Moves all limbs independently. Skin: no rashes, warm and dry Neurologic: No focal defects appreciated. Psychiatric: A+Ox3, euthymic affect Results & Data Results & Data Vital Signs (Past 12 Hours) Vital Signs Temp Pulse Pulse Resp BP BP Pulse Ox 04/30/24 17:00 85 24 160/105 H 96 04/30/24 16:38 93 H 04/30/24 16:05 97 04/30/24 16:00 36.6 C 101 H 20 186/94 H 99 O2 Del Method 04/30/24 17:00 Room Air 04/30/24 16:38 04/30/24 16:05 Room Air 04/30/24 16:00 Room Air Diagnostic Findings Abdomen/Pelvis CT 04/30/24 16:05 Clinical History: Abdominal pain Technique: Axial computed tomography images were obtained of the abdomen and pelvis without intravenous contrast. Comparison is made to the prior CT dated 08/21/2022 Findings: The liver is overall of normal size, attenuation, and contour with no sign of cirrhosis or significant fatty infiltration. No definite liver mass lesion is seen on this noncontrast study. The gallbladder appears unremarkable. No bile duct dilatation is noted. The spleen is of normal size. No focal splenic lesion is evident. The pancreas appears normal with no sign of acute or chronic pancreatitis and no mass lesion noted. The pancreatic duct is of normal caliber. The adrenal glands appear unremarkable. There is a 2 mm left renal calculus. There is mild to moderate severity right hydronephrosis and hydroureter, as well as right perinephric stranding. No definite renal mass lesion is identified. The aorta is of normal caliber. No abdominal adenopathy is seen. There is a small hiatal hernia. There is no sign of small bowel obstruction. The colon appears unremarkable. The appendix appears normal also. No free intraperitoneal fluid or air is identified. There is a 3.5 mm calculus obstructing the right ureterovesicular junction. The bladder is decompressed. The iliac arteries are of normal caliber. No pelvic adenopathy is noted. The uterus has been removed The lungs bases appear clear. No fracture is identified. No focal osseous lesion is seen Impression: 1. Right hydronephrosis due to a 3.5 mm calculus obstructing the right UVJ 2. Small left renal calculus 3. Small hiatal hernia ACT 112: Positive. There are findings on this exam that require communication between the performing entity and the patient following Patient Test Result Information Act ([place] ACT 112) guidelines. Electronically signed by Alejandro Sewell 04-30-2024 4:52 PM Supervising Physician Co-Signing Physician Notes Patient seen and examined, chart reviewed, case discussed with Dr. Marquez and I agree with the assessment and plan as above except as otherwise noted Labs and images reviewed 53-year-old female with past medical history of GERD, lumbar radiculopathy, migraine, and a positive, gastritis/duodenitis and who is seen day of admission for a left Achilles tendon percutaneous ultrasound tenotomy of her left foot. She is seen for renal colic/flank pain in the ER several hours later. On ER evaluation CT does show a 3.5 mm obstructive right UVJ calculus with right hydronephrosis, no RADHA is present. She has a mild leukocytosis of 14.43 and urine is with epithelial cells and blood but no bacteria/nitrite/leukocyte esterase. Agree with admission, expulsive therapy, IV fluids, multimodal IV pain control. Suspect that her leukocytosis is reactive, there is no left shift or fever no signs of acute infection. Trend BMP. Stone is small and without disproportionate RADHA, can maximize medical therapy at this time however if not progressing will need urologic consultation at that time. The ED tonight, n.p.o. midnight pending reevaluation. Skilled Multimodal pain control with morphine for breakthrough; hold for narcosis or respiratory suppression Resident Activity Tracking Resident Involvement: Resident Care Provided Care Provided: Adult Hospital Medicine
[2024-04-30] MEDS ORDERED: DICYCLOMINE HCL 10 MG CAP PO PRN (19:24)
[2024-04-30] MEDS ORDERED: RIZATRIPTAN BENZOATE 10 MG TAB PO PRN (19:24)
[2024-04-30] MEDS ORDERED: hydrOXYzine HCl 25 MG TAB PO PRN (19:24)
[2024-04-30] MEDS ORDERED: MoRPHine SULFATE 2 MG/ML CARP IV PRN (19:25)
[2024-04-30] MEDS ORDERED: POLYETHYLENE (MIRALAX) 17 GM PACK PO PRN (19:25)
[2024-04-30] MEDS ORDERED: ONDANSETRON INJ 2 MG/ML 2 ML VIAL IV PRN (19:25)
[2024-04-30] MEDS ORDERED: MELATONIN 3 MG TAB PO PRN (19:25)
--- NOTE | 2024-04-30 19:37 | Billing Data ---
Date of Service April 30, 2024 Coding Level of Care Code 33266 INT INP/OBS CARE
[2024-04-30] MEDS ORDERED: NALOXONE HCL 0.4 MG/1 ML VIAL/CARP IV PRN (19:38)
[2024-04-30] MEDS: MoRPHine SULFATE 4 MG/ML 1 ML CARP\\VIAL IV PRN (22:24)
[2024-04-30] MEDS: LACTATED RINGER'S 1,000 ML IV SCH (22:25)
[2024-04-30] MEDS: FAMOTIDINE 20MG IV PUSH 20 MG/5 ML SYR IV SCH (23:06)
[2024-04-30] MEDS: PANTOprazole 40 MG TAB PO SCH (23:06)
[2024-04-30] MEDS: SULINDAC 150 MG TAB PO SCH (23:06)
[2024-04-30] MEDS: TAMSULOSIN HCL 0.4 MG CAP PO SCH (23:06)
[2024-04-30] MEDS: GABAPENTIN 300 MG CAP PO SCH (23:06)
[2024-05-01 07:04] LABS: Basophils # (auto) 0.04 K/uL (0.00-0.20); Basophils % (auto) 0.3 %; Eosinophils # (auto) 0.08 K/uL (0.00-0.50); Eosinophils % (auto) 0.6 %; Hematocrit (blood only) 34.8 % (37.0-47.0); Hemoglobin 11.3 g/dl (12.0-16.0); Immature Granulocytes # (auto) 0.05 K/uL (0.01-0.20); Immature Granulocytes % (auto) 0.4 %; Lymphocytes % (auto) 19.3 %; Mean Corpuscular Hemoglobin 28.2 pg (25.0-34.0); Mean Corpuscular Hgb Conc 32.5 g/dL (32.0-36.0); Mean Corpuscular Volume 86.8 fL (80.0-100.0); Mean Platelet Volume 10.2 fL (9.4-12.4); Monocytes # (auto) 1.07 K/uL (0.11-0.59); Monocytes % (auto) 8.6 %; Neutrophils # (auto) 8.77 K/uL (1.40-6.50); Neutrophils % (auto) 70.8 %; Platelet Count 285 K/uL (130-400); RDW Coefficient of Variation 15.2 % (11.5-14.5); RDW Standard Deviation 48.2 fL (36.4-46.3); Red Blood Count 4.01 M/uL (4.20-5.40); White Blood Count 12.41 K/ul (4.8-10.8)
[2024-05-01 07:26] LABS: Albumin Globulin Ratio 1.5 (0.9-2); Albumin Level 3.7 gm/dl (3.4-5.0); BUN Creatinine Ratio 15.6 (10-20); Bilirubin,Total 0.5 mg/dl (0.2-1.0); Calcium 8.6 mg/dl (8.6-10.3); Creatinine Clr Calc Pharmacy 71.7 ml/min; Globulin 2.5 gm/dl (2.5-4.0); Potassium 3.6 mmol/L (3.5-5.1); Total Protein 6.2 gm/dl (6.0-8.3)
--- NOTE | 2024-05-01 09:22 | Urology Consultation ---
<Statement entered by Kike Wiseman MD - 05/01/24 14:36> 53-year-old female who presented with flank pain from passing a stone, but was able to pass the stone spontaneously. No need for surgical intervention at that point. Urology can coordinate outpatient follow-up to review stone analysis and further stone prevention. Date of Consultation May 01, 2024 Assessment & Plan (1) Renal colic: (2) Hydronephrosis of right kidney: (3) Right ureteral calculus: Plan 53-year-old female with history of nephrolithiasis who presented to the ER with right flank and abdominal pain after an Achilles operation. Urology consulted for 3.5 mm right UVJ stone seen on CT Vital signs stable and patient is afebrile Urine culture not completed due to unremarkable urinalysis Today she reports that she passed the stone and her pain has completely resolved Labs today: Creatinine 0.96 WBCs 12.41 improved from 14.43 Glucose 113 Hemoglobin 11.3 Recommend: No urological surgical intervention needed due to patient passing stone this morning -patient currently asymptomatic Stone sent for analysis Continue other medical management per primary team Patient is able to have a diet We will schedule outpatient follow-up- renal ultrasound in 2 to 3 months to add ress any silent hydronephrosis or stone burden She had no further questions and was agreement to above plan History of Present Illness Attending Physician: Jasper Gaitan MD History of Present Illness 53-year-old female with a past medical history of rheumatoid arthritis, migraines, palpitations, GERD who presented to the ER for right lower quadrant abdominal pain which radiates to the right flank this happened after an Achilles operation. Patient was admitted due to an obstructing right UVJ stone for possible stent placement CT completed in the ER showed right hydronephrosis due to a 3.5 mm calculus obstructing the right UVJ. Labs reviewed: Creatinine 0.96 WBCs 12.41 improved from 14.43 Glucose 113 Hemoglobin 11.3 She was resting comfortably in bed. She states that she passed her stone around 6 AM this morning, stone was sent for analysis by nursing staff. Since she has passed the stone she denied any right flank or abdominal pain. She is back to baseline urinary symptoms, yesterday she did have urinary frequency and urgency she believes due to the stone, no issues this morning. Denies fevers, chills, nausea, vomit. Denies gross hematuria or dysuria. She does have a history of stones, last stone surgery was approximately [address] Holt, sounds like a cystoscopy with uteroscopy and stone removal. She has not had consistent follow-up, she has not seen nephrology in the past. Allergies Allergy/AdvReac Type Severity Reaction Status Date / Time No Known Allergies Allergy Verified 04/30/24 09:20 Home Medications Medication Instructions Recorded Confirmed Type rizatriptan 10 mg tablet 10 mg PO UD PRN migraine headache 10/31/21 04/30/24 History hydroxyzine pamoate 25 mg capsule 25 mg PO DAILY PRN panic attack(s) 02/08/22 04/30/24 Rx #15 caps turmeric 400 mg capsule 400 mg PO QDL 07/10/22 04/30/24 History acetaminophen 500 mg tablet 500 - 1,000 mg PO Q6H PRN Pain 08/21/22 04/30/24 History (Tylenol Extra Strength) calcium 600 mg-D3 800 unit-mag11 1 tab PO QDL 09/13/23 04/30/24 History 50 pi-pwoz-ktplpv-fanny-s.borat tablet (Caltrate 600-D Plus Minerals) sulindac 150 mg tablet 150 mg PO BID #60 tabs 02/08/24 04/30/24 Rx gabapentin 300 mg capsule 300 mg PO HS 04/10/24 04/30/24 History (Neurontin) cholecalciferol (vitamin D3) 25 25 mcg PO DAILY 04/15/24 04/30/24 History mcg (1,000 unit) capsule dicyclomine 10 mg capsule 10 mg PO QID PRN Esophageal spasms 04/18/24 04/30/24 Rx #14 caps sertraline 100 mg tablet (Zoloft) 100 mg PO QDL 04/23/24 04/30/24 History pantoprazole 40 mg tablet,delayed 40 mg PO BID #90 tabs 04/24/24 04/30/24 Rx release (Protonix) oxycodone 5 mg tablet 5 mg PO Q6H PRN pain #15 tabs 04/30/24 04/30/24 Rx Patient History Medical History (Updated 05/01/24 @ 09:35 by BENJA Barber) Achilles tendon tear Left - reason for procedure 04/30/24 Tinnitus of both ears Migraines History of rheumatoid arthritis "[place] said it was, now seeing [facility] [place] [facility] [employer] [facility] Dr Lazo and doesn't think it is RA." as per patient Cervical disc herniation No surgery - Chiropractor Care - Full ROM Palpitations x2 [facility] ER 04/06/24 or 04/10/24 - still has, not as bad - to see [facility] Cardiology 05/07/24 PVCs (premature ventricular contractions) To see [facility] Cardiology - Dr Cameron 05/07/24 Anemia Iron Infusions - [facility] History of chest pain x2 [facility] 04/06/24 or 04/10/24 - IP [facility] - cardio work up cleared - patient denies issues at this time Dyslipidemia Left ureteral stone Leukocytosis Uterine fibroid hx - pt denies at this time - S/p hysterectomy Pelvic pain hx - pt denies at this time - S/p hysterectomy History of COVID-19 09/14/2021, home test, pcr [facility], not hosp; cough, fever, runny nose, sinus pressure>resolved. Lumbar herniated disc History of kidney stones GERD (gastroesophageal reflux disease) History of panic attacks Surgical History History of hysterectomy pt has her ovaries Status post excision of lipoma off of right shoulder Status post cystoscopy with ureteral stent placement History of lithotripsy History of colonoscopy (2021) History of esophagogastroduodenoscopy (EGD) History of wisdom tooth extraction Family History Father Prostate cancer Family history of diabetes mellitus Coronary heart disease Grandmother Hypothyroidism Breast cancer Daughter Hypothyroidism Aunt Hypothyroidism Grandmother (Paternal) Family history of diabetes mellitus Other No family history of adverse response to anesthesia Denies family history of Ovarian cancer Myocardial infarction Colorectal cancer Social History Smoking Status: Never smoker Tobacco Type: Cigarettes packs per day: 0; Second Hand Exposure: No; Do You Dip or Chew Tobacco: No; Hx Alcohol Use: Yes Alcohol type: other Alcohol Intake Frequency: Monthly or Less Hx Substance Use: No Preferred Language: Mongolian Communication Ability: Effective Visual Impairment: Limited Hearing Ability: Normal Power Plant Technician Required: No Beliefs That Will Affect Care: None marital status: Current Living Situation: Spouse current occupational status: employed 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 Other Information That Helps Us Care for You: No Feels Safe at Home: Yes Childhood Exposure to Second-Hand Smoke: Yes Diet: regular caffeine: Yes during the past year weight has: remained stable Dental Care, Regularly: Yes Physical Activity Frequency: 1-2 Times per Week Seatbelt Use: always Sunscreen Use: Yes Assistive Devices: Glasses and Special Shoe Review of Systems Constitutional: as per Subjective / HPI Genitourinary: as per Subjective / HPI Physical Exam Constitutional: well developed and well nourished; no acute distress Respiratory: normal respiratory effort and able to speak in complete sentences Musculoskeletal: Extremities: extremities normal to inspection Psychiatric: Orientation: alert and oriented x 3 Results & Data Vital Signs (Past 12 Hours) Vital Signs Temp Pulse Resp BP Pulse Ox O2 Del Method O2 Flow Rate 05/01/24 08:19 36.9 C 99 H 20 108/69 93 Room Air 05/01/24 06:21 90 122/75 05/01/24 03:42 36.9 C 98 H 18 99/65 L 93 Room Air 04/30/24 22:15 36.8 C 100 H 16 180/101 H 96 Room Air 2 PG Care Time/CCT Total # of Minutes Spent Total Time Spent with Patient: Total time spent is greater than 50% in coordination of care (as documented) at patient's floor/unit and/or counseling patient: Coding Level of Care Code 19508 OFFICE CONSULT LVL M Diagnoses Renal colic N23 Hydronephrosis of right kidney N13.30 Right ureteral calculus N20.1
--- NOTE | 2024-05-01 09:24 | Hospitalist Progress Note ---
Date of Service May 01, 2024 Assessment & Plan (1) Right nephrolithiasis: Plan: Patient presented with right flank pain Found to have an obstructing kidney stone However, last night was given flomax and a strainer She passed the stone, which has been sent to pathology for analysis Awaiting Urolgy recs (2) Hydronephrosis of right kidney: Plan: Likely due to the obstructing stone, which has passed (3) Achilles tendinitis: Plan: s/p Tenotomy currently has ice pack (4) GERD (gastroesophageal reflux disease): Plan Hopefully d/c home today Admission and Anticipated Discharge Date Admission Date: April 30, 2024 Subjective patient seen and examined, says the pain is better, she passed the stone last night Review of Systems Review of Systems: All systems reviewed are negative, apart from the ones contained in the history. Physical Exam Physical Exam: The patient is awake, alert and oriented 3, well developed and well nourished, normocephalic and atraumatic, lying in bed and in no acute distress. HEENT--PERRL, EOMI, mucous membranes and oropharynx mildly dry Neck--supple. No JVD. No bruits. Thyroid normal, trachea midline, no adenopathy. Heart--normal S1 and S2. No murmurs, rubs or gallops. Lungs--clear bilaterally, no respiratory distress, no accessory muscle use. Abdomen--normal bowel sounds and soft. Extremities--no cyanosis or clubbing. No edema. Dermatologic--normal skin turgor, normal color, no abnormal lymph nodes, no rash. Neurologic--cranial nerves II through XII grossly intact. Rheumatologic--normal range of motion. Psychiatric--normal affect. Results & Data Results & Data Vital Signs (Past 12 Hours) Vital Signs Temp Pulse Resp BP Pulse Ox O2 Del Method O2 Flow Rate 05/01/24 08:19 98.4 F 99 H 20 108/69 93 Room Air 05/01/24 06:21 90 122/75 05/01/24 03:42 98.4 F 98 H 18 99/65 L 93 Room Air 04/30/24 22:15 98.2 F 100 H 16 180/101 H 96 Room Air 2 PG Care Time/CCT Total # of Minutes Spent Total Time Spent with Patient: Total time spent is greater than 50% in coordination of care (as documented) at patient's floor/unit and/or counseling patient: Coding Level of Care Code 98042 SUB INP/OBS CARE 2MIN Diagnoses Right nephrolithiasis N20.0 Hydronephrosis of right kidney N13.30 Achilles tendinitis M76.60 GERD (gastroesophageal reflux disease) K21.9 Time Spent (min) 35
[2024-05-01 12:06] VITALS: BP 103/66; PULSE 99; RESP 18; TEMP 98.2; O2SAT 91
[2024-05-01] MEDS: SERTRALINE HCL 100 MG TABLET PO SCH (12:49)
[2024-05-01] MEDS: ACETAMINOPHEN 325 MG TAB PO PRN (14:41)
--- NOTE | 2024-05-01 15:13 | Discharge Summary ---
Date of Service May 01, 2024 Admission HPI Per Admitting Provider Lauren Smith is a 53 year-old female who presents to the ED due right sided flank pain. Past medical history is significant for GERD, cervical disc disease, positive SRAVAN, lumbar radiculopathy. Patient underwent left Achilles percutaneous ultrasound tenotomy this morning, during the procedure patient began to experience RLQ pain- had to get up off of the surgical table and go to the bathroom, was able to complete the remainder of the procedure and was discharged home. However after going home, pain continued to increase and radiated to right flank- patient had prior renal stone and was concerned that this could be a kidney stone so she came to the ED for evaluation. Patient has had recent ED visit and admission for chest pain, fortunately had a negative cardiac stress test and is scheduled for outpatient GI follow up as there was concern this could be secondary to gastritis. At time of encounter, patient is resting comfortably in bed. Notes that the last dose of morphine finally provided pain relief. Denies current nausea, but had an episode of emesis due to pain earlier this afternoon. Notes that she previously had a left sided renal stone requiring lithotripsy. Notes some looser stool today but no diarrhea, denies blood in urine or abnormal urine color. ED Course: -CT A/P -CBC, CMP, UA Admission Exam (Per Admitting) Constitutional The patient is awake, alert and oriented 3, well developed and well nourished, normocephalic and atraumatic, lying in bed and in no acute distress. HEENT--PERRL, EOMI, mucous membranes and oropharynx mildly dry Neck--supple. No JVD. No bruits. Thyroid normal, trachea midline, no adenopathy. Heart--normal S1 and S2. No murmurs, rubs or gallops. Lungs--clear bilaterally, no respiratory distress, no accessory muscle use. Abdomen--normal bowel sounds and soft. Extremities--no cyanosis or clubbing. No edema. Dermatologic--normal skin turgor, normal color, no abnormal lymph nodes, no rash. Neurologic--cranial nerves II through XII grossly intact. Rheumatologic--normal range of motion. Psychiatric--normal affect. Discharge Data Consultations 04/30/24 17:53 ED Decision to Admit Stat 05/01/24 07:00 Consult Urology Routine Hospital Course (1) Right nephrolithiasis: Patient presented with right flank pain Found to have an obstructing kidney stone However, last night was given flomax and a strainer She passed the stone, which has been sent to pathology for analysis No urological procedures Outpatient follow up (2) Hydronephrosis of right kidney: Likely due to the obstructing stone, which has passed (3) Achilles tendinitis: s/p Tenotomy currently has ice pack (4) GERD (gastroesophageal reflux disease): Plan Hopefully d/c home today Coding Level of Care Code 08264 INP/OBS DISCH >30 MIN Diagnoses Right nephrolithiasis N20.0 Hydronephrosis of right kidney N13.30 Achilles tendinitis M76.60 GERD (gastroesophageal reflux disease) K21.9 Time Spent (min) 35
[2024-05-01] MEDS: oxyCODONE HCL IR 5 MG TAB (IMMEDIATE RELEASE) PO STA (15:33)
== END 2024-05-01 16:25 | disposition home or self-care (01) | DRG 504 ==
LOC: SUATTDRO → ED 15:52 → SUATTDRO 19:36 → EDINP 19:36 → 4W 21:53